=== PATIENT | male | born 1955 | race Caucasian/White ===

== ENCOUNTER 2020-01-02 13:48 | Outpatient (REF) | payer BC, SELFPAY ==
--- NOTE | 2020-01-02 13:50 | XR_ITS ---
EXAMINATION: X-RAY BILATERAL KNEES X-RAY RIGHT KNEE CLINICAL INFORMATION: Pain COMPARISON: None TECHNIQUE: AP bilateral knee single view. Right knee 2 views. FINDINGS: Right knee: There is joint space narrowing, marginal osteophytes in all 3 compartments. Small suprapatellar joint fluid. No fracture or dislocation. Left knee: Moderate, medial greater than lateral compartment arthritis. XR/XR knee RT 2V IMPRESSION: Moderate tricompartment arthritis right knee.
--- NOTE | 2020-01-02 13:50 | XR_ITS ---
EXAMINATION: X-RAY BILATERAL KNEES X-RAY RIGHT KNEE CLINICAL INFORMATION: Pain COMPARISON: None TECHNIQUE: AP bilateral knee single view. Right knee 2 views. FINDINGS: Right knee: There is joint space narrowing, marginal osteophytes in all 3 compartments. Small suprapatellar joint fluid. No fracture or dislocation. Left knee: Moderate, medial greater than lateral compartment arthritis. XR/XR knee standing BI IMPRESSION: Moderate tricompartment arthritis right knee.
== END 2020-01-02 13:49 | disposition home or self-care (01) ==
LOC: HO.HOSX 13:48
PROVIDERS: PCP Family Medicine; Referring Provider Family Medicine; Visit Provider Orthopaedic Surgery
DX: M25.561 Pain in right knee (principal); M17.11 Unilateral primary osteoarthritis, right knee; M71.21 Synovial cyst of popliteal space [Baker], right knee
CPT/HCPCS: 20610; 73560; 73565; J1100

== ENCOUNTER 2020-02-07 10:31 | Outpatient (REF) | payer BC, SELFPAY ==
[2020-02-07 11:16] LABS: Microalbum/Creatinine Ratio Ur 5.8 ug/mg cr
== END 2020-02-07 10:32 | disposition home or self-care (01) ==
LOC: HO.LNP 10:31
PROVIDERS: Visit Provider Family Medicine
DX: I10 Essential (primary) hypertension (principal)
CPT/HCPCS: 82043

== ENCOUNTER → 2020-02-13 13:49 | Outpatient (BNVA) | payer BC, SELFPAY | PROVIDERS: Visit Provider Orthopaedic Surgery | DX: M17.11 Unilateral primary osteoarthritis, right knee (principal) | CPT/HCPCS: 20610; J1100 ==

== ENCOUNTER 2020-03-16 15:55 | Emergency (ER) | payer BC, SELFPAY ==
--- NOTE | 2020-03-16 | ECG_ITS ---
Test Reason : DYZNESS Blood Pressure : / mmHG Vent. Rate : 074 BPM Atrial Rate : 074 BPM P-R Int : 138 ms QRS Dur : 096 ms QT Int : 392 ms P-R-T Axes : 004 -12 034 degrees QTc Int : 435 ms Normal sinus rhythm Normal ECG When compared with ECG of 24-JUN-2006 19:58, No significant change was found Referred By: Kennedy Pena Electronically Signed By:LISY YA MD
[2020-03-16 16:25] VITALS: BP 127/77; PULSE 75; RESP 18; TEMP 37.1; O2SAT 99; BMI 27.8
--- NOTE | 2020-03-16 16:32 | XR_ITS ---
EXAMINATION: PORTABLE CHEST 1 VIEW CLINICAL INFORMATION: chest pain . COMPARISON: . TECHNIQUE: Portable frontal view of the chest was obtained. FINDINGS: The lungs are hypoexpanded. Minimal basilar atelectatic change but no superimposed focal infiltrate, effusion, edema, or pneumothorax. Cardiac and mediastinal silhouettes are within normal limits for the hypoexpanded technique. No acute bony abnormality seen. XR/XR chest 1V IMPRESSION: Hypoexpanded but otherwise no evidence of acute disease.
[2020-03-16 18:02] LABS: MANUAL DIFF FLAG NO
[2020-03-16 18:05] LABS: Basophils Absolute Auto 0.1 X10*3/uL (0.0-0.2); Basophils Percent Auto 0.7 % (0-2); Eosinophils Absolute Auto 0.5 X10*3/uL (0.0-0.4); Eosinophils Percent Auto 6.4 % (0-4); Hematocrit 43.9 % (42-52); Hemoglobin 15.4 g/dl (14.0-18.0); Imm Gran Abs Auto 0.03 X10*3/uL (0.00-0.03); Imm Gran Pct Auto 0.4 % (0.0-0.4); Lymphocytes Absolute Auto 1.3 X10*3/uL (1.2-4.9); Lymphocytes Percent Auto 17.1 % (20-40); Mean Corpuscular HGB Conc 35.1 g/dl (31.0-36.0); Mean Corpuscular Hemoglobin 32.2 pg (27.0-33.0); Mean Corpuscular Volume 91.8 fL (80-98); Mean Platelet Volume 9.1 fL (9.4-12.4); Monocytes Absolute Auto 0.8 X10*3/uL (0.1-1.2); Neutrophils Percent Auto 64.4 % (45-73); Platelet Count 221 X10*3/uL (160-400); Red Blood Count 4.78 X10*6/uL (4.60-5.80); White Blood Count 7.7 X10*3/uL (4.8-10.8)
[2020-03-16 18:24] LABS: Anion Gap 12 (12-20); Blood Urea Nitrogen 13 mg/dL (9-16); Calcium 9.3 mg/dL (8.4-10.2); Carbon Dioxide 27 mmol/L (22-29); Chloride 106 mmol/L (96-108); Creatinine Clr Calc Pharmacy 112.3; Estimated Glomerular Filt Rate > 60; Glucose Random 76 mg/dL (60-115); Potassium 3.8 mmol/l (3.3-5.1); Sodium 141 mmol/L (135-145)
[2020-03-16 18:30] LABS: Troponin-I High Sensitivity < 3.5 ng/L (<3.5-35.0)
[2020-03-16 22:45] VITALS: BP 154/79; PULSE 56; RESP 18; TEMP 36.4; O2SAT 100
[2020-03-16 22:59] LABS: Troponin-I High Sensitivity < 3.5 ng/L (<3.5-35.0)
--- NOTE | 2020-03-16 23:08 | ED.DIZZY ---
HPI - Dizziness General Chief Complaint: Dizziness Stated Complaint: dizziness Time Seen by Provider: 03/16/20 22:56 Source: patient Mode of arrival: ambulatory Limitations: no limitations History of Present Illness HPI Narrative: Patient comes to emergency room complaining of an episode of dizziness, chest pressure radiating to the right arm, also happen at 13:00. Per patient, it lasted for about 1 hour, then it started self resolving. At this time, patient states that he no chest pain at all, complaining of chronic shortness of breath for several years due to pulmonary fibrosis, nothing new respiratory shore. Patient describes dizziness as ?splitting headaches? and feeling like he was blacking out. Related Data Home Medications Medication Instructions Recorded Confirmed amlodipine 2.5 mg tablet 2.5 mg PO DAILY 01/02/20 02/14/20 aspirin 81 mg tablet,delayed 81 mg PO DAILY 01/02/20 02/14/20 release Previous Rx's Medication Instructions Recorded ibuprofen 600 mg tablet 600 mg PO Q8H PRN #30 tab 01/02/20 simvastatin 40 mg tablet 40 mg PO BEDTIME #30 tab 03/09/20 Allergies Allergy/AdvReac Type Severity Reaction Status Date / Time No Known Allergies Allergy Verified 02/14/20 10:46 Review of Systems Review of Systems: Constitutional : No Weight loss, No Fever, No Chills, No Night Sweats, No Fatigue, No Malaise ENT/Mouth : No Hearing loss, No Ear Pain, No Nasal Congestion, No Sinus Pain, No Hoarseness, No sore throat, No Rhinorrhea, No Swallowing Difficulty Eyes: No Eye Pain, No Swelling, No Redness, No Foreign Body, No Discharge, No Vision Changes Cardiovascular : 1 episode of chest pressure earlier today, No SOB, No Dyspnea on Exertion, No Orthopnea, No Edema, No Palpitations Respiratory : No Cough, No Sputum, No Wheezing, No Smoke Exposure, chronic Dyspnea Gastrointestinal : No Nausea, No Vomiting, No Diarrhea, No Constipation, No abdominal Pain, No Hematochezia, No Melena Genitourinary : no irregular bleeding, No Dysuria, No Urinary Frequency, No Hematuria, No Urinary Incontinence, No Urgency, No Flank Pain, No Urinary Flow Changes, No Hesitancy Musculoskeletal : No joint pain, No Myalgias, No Joint Swelling Skin : No Skin Lesions, No rash Neuro : No Weakness, No Numbness, No Paresthesias, No Loss of Consciousness, patient had 1 episode of dizziness,/lightheaded, No Headache Psych : No Anxiety/Panic, No Depression, No SI/HI/AH/VH, No Social Issues, Heme/Lymph: No Bruising, No Bleeding,No Lymphadenopathy Endocrine : No Polyuria, No Polydipsia, No Temperature Intolerance [facility] Past Medical History Medical History (Updated 03/16/20 @ 23:51 by Kendra Jewell MD) Aortic aneurysm Osteoarthritis of right knee Pulmonary fibrosis Right knee pain Surgical History H/O arthroscopic knee surgery Family History Family History (Updated 03/16/20 @ 23:50 by Kendra Jewlel MD) Father No problems noted. Mother No problems noted. Brother Pulmonary fibrosis Social History Social History Alcohol intake: never Smoking Status: Former smoker Use of substances other than those prescribed or required for medical reasons: No Advance Directives: No Advance Directives Information Provided: Yes Current occupational status: employed Current occupation: [employer]- left handed Physical Exam Vital Signs: Vital Signs: Last Vital Signs Temp 97.6 F 03/16/20 22:45 Pulse 55 03/16/20 23:41 Resp 14 03/16/20 23:41 BP 144/49 H 03/16/20 23:41 Pulse Ox 98 03/16/20 23:41 Body Mass Index 27.8 Appearance: Alert. Oriented X3. No acute distress. Mildly anxious Eyes: Pupils equal, round and reactive to light. ENT: Pharynx normal. Neck: Normal inspection. Neck supple. No lymph nodes noted. No crepitus CVS: Normal heart rate and rhythm. Pulses normal. Normal S1 and S2, no reproducible chest pain Respiratory: No respiratory distress. Breath sounds normal. No Wheezing. No rales Abdomen: Soft and nontender. No rigidity. No distention. good BS x4 Skin: Skin warm and dry. Normal skin color. Normal skin turgor. Extremities: No lower extremity edema. No lower extremity edema. No Lacerations. No Rash Neuro: Oriented X 3. No motor deficit. No sensory deficit. Moving all extermities. No slurred speech. Course Course Course Narrative: Patient's troponin x2 were negative, EKG shows no acute abnormalities. At this time, patient is not having any chest pain, no dizziness. Orthostatics were negative. Patient's oxygen saturation 99% on room air, blood pressure 133/89, heart rate 60. MDM - Dizziness Lab Data Result diagrams: 03/16/20 17:56 03/16/20 17:56 Labs: Lab Results 03/16/20 03/16/20 03/16/20 Range/Units 17:56 17:56 17:56 WBC 7.7 (4.8-10.8) X10*3/uL RBC 4.78 (4.60-5.80) X10*6/uL Hgb 15.4 (14.0-18.0) g/dl Hct 43.9 (42-52) % MCV 91.8 (80-98) fL MCH 32.2 (27.0-33.0) pg MCHC 35.1 (31.0-36.0) g/dl RDW 12.0 (11.0-16.0) % Plt Count 221 (160-400) X10*3/uL MPV 9.1 L (9.4-12.4) fL Immature Gran % (Auto) 0.4 (0.0-0.4) % Neut % (Auto) 64.4 (45-73) % Lymph % (Auto) 17.1 L (20-40) % [place] % (Auto) 11.0 (2-11) % Eos % (Auto) 6.4 H (0-4) % Baso % (Auto) 0.7 (0-2) % Lymph # (Auto) 1.3 (1.2-4.9) X10*3/uL [place] # (Auto) 0.8 (0.1-1.2) X10*3/uL Eos # (Auto) 0.5 H (0.0-0.4) X10*3/uL Baso # (Auto) 0.1 (0.0-0.2) X10*3/uL Abs Immat Gran (auto) 0.03 (0.00-0.03) X10*3/uL Absolute Neuts (auto) 5.0 (2.0-8.3) X10*3/uL Absolute Nucleated RBC 0.000 (0.0-0.012) X10*3/uL Nucleated RBC % (auto) 0.0 (0.0-0.2) /100WBC Hold Blue Top SEE NOTE Sodium 141 (135-145) mmol/L Potassium 3.8 (3.3-5.1) mmol/l Chloride 106 (96-108) mmol/L Carbon Dioxide 27 (22-29) mmol/L Anion Gap 12 (12-20) BUN 13 (9-16) mg/dL Creatinine 0.74 (0.5-1.4) mg/dL Estim Creat Clear Calc 112.3 Estimated GFR > 60 Random Glucose 76 (60-115) mg/dL Calcium 9.3 (8.4-10.2) mg/dL Troponin I High Sens (<3.5-35.0) ng/L 03/16/20 03/16/20 Range/Units 17:56 21:53 WBC (4.8-10.8) X10*3/uL RBC (4.60-5.80) X10*6/uL Hgb (14.0-18.0) g/dl Hct (42-52) % MCV (80-98) fL MCH (27.0-33.0) pg MCHC (31.0-36.0) g/dl RDW (11.0-16.0) % Plt Count (160-400) X10*3/uL MPV (9.4-12.4) fL Immature Gran % (Auto) (0.0-0.4) % Neut % (Auto) (45-73) % Lymph % (Auto) (20-40) % [place] % (Auto) (2-11) % Eos % (Auto) (0-4) % Baso % (Auto) (0-2) % Lymph # (Auto) (1.2-4.9) X10*3/uL [place] # (Auto) (0.1-1.2) X10*3/uL Eos # (Auto) (0.0-0.4) X10*3/uL Baso # (Auto) (0.0-0.2) X10*3/uL Abs Immat Gran (auto) (0.00-0.03) X10*3/uL Absolute Neuts (auto) (2.0-8.3) X10*3/uL Absolute Nucleated RBC (0.0-0.012) X10*3/uL Nucleated RBC % (auto) (0.0-0.2) /100WBC Hold Blue Top Sodium (135-145) mmol/L Potassium (3.3-5.1) mmol/l Chloride (96-108) mmol/L Carbon Dioxide (22-29) mmol/L Anion Gap (12-20) BUN (9-16) mg/dL Creatinine (0.5-1.4) mg/dL Estim Creat Clear Calc Estimated GFR Random Glucose (60-115) mg/dL Calcium (8.4-10.2) mg/dL Troponin I High Sens < 3.5 < 3.5 (<3.5-35.0) ng/L ECG Data Attestation: I personally reviewed and interpreted this ECG as follows: (Sinus rhythm, heart rate 74, QTC 435, no ST segment depressions or elevations, no T-wave inversions) Discharge Plan Discharge Clinical Impression: Atypical chest pain Patient Disposition: Home, Self-Care Instructions: Chest Pain (ED) Additional Instructions: Please follow-up with your primary care physician tomorrow. If you have any worsening or new symptoms, please return to the emergency room or call 911 Prescriptions: No Action simvastatin 40 mg tablet 40 mg PO BEDTIME Qty: 30 RF: 0 amlodipine 2.5 mg tablet 2.5 mg PO DAILY RF: 0 aspirin [Adult Aspirin Regimen] 81 mg tablet,delayed release (DR/EC) 81 mg PO DAILY RF: 0 ibuprofen 600 mg tablet 600 mg PO Q8H PRN (Reason: pain) Qty: 30 RF: 2
[2020-03-16 23:40] VITALS: BP 144/79; PULSE 55
[2020-03-16 23:41] VITALS: BP 133/89; BP 137/81; BP 144/49; PULSE 55; PULSE 57; PULSE 60; RESP 14; O2SAT 98
[2020-03-17] MEDS: Aspirin Enteric Coated 325 MG TABLET.DR PO (00:25)
[2020-03-17] MEDS: Meclizine HCl 25 MG TABLET 50 MG PO (00:26)
== END 2020-03-17 00:28 | disposition home or self-care (01) ==
PROVIDERS: Emergency Medicine; Internal Medicine; Emergency Provider Emergency Medicine; PCP Family Medicine
DX: R07.89 Other chest pain (principal)
CPT/HCPCS: 36415; 71045; 80048; 84484; 85025; 93005; 99283; 99284

== ENCOUNTER 2020-03-23 08:59 | Emergency (ER) | payer BC, SELFPAY ==
--- NOTE | 2020-03-23 09:05 | ED_ITS ---
HPI - Dizziness General Chief Complaint: Dizziness Stated Complaint: HEADACHE,DIZZINESS Time Seen by Provider: 03/23/20 09:06 Source: patient Mode of arrival: ambulatory Limitations: no limitations History of Present Illness HPI Narrative: hit his head 2 weeks ago while working at home then on 03/16 he had a sharp headache and dizziness since then intermittent dizziness and headache that does not respond to tylenol or motrin elicited complaint: dizziness and other (headache) Onset (ago): week(s) (1) Timing: gradual onset and constant Severity: moderate Description: room spinning Context: trauma History of similar symptoms: No Exacerbating factors: nothing Relieving factors: nothing Associated symptoms: denies other symptoms Related Data Home Medications Medication Instructions Recorded Confirmed amlodipine 2.5 mg tablet 2.5 mg PO DAILY 01/02/20 02/14/20 aspirin 81 mg tablet,delayed 81 mg PO DAILY 01/02/20 02/14/20 release flu vac qs 2019(4 yr up)CD(PF) ml IM 03/17/20 Previous Rx's Medication Instructions Recorded ibuprofen 600 mg tablet 600 mg PO Q8H PRN #30 tab 01/02/20 simvastatin 40 mg tablet 40 mg PO BEDTIME #30 tab 03/09/20 omeprazole 40 mg capsule,delayed 40 mg PO DAILY 90 Days #90 cap 03/17/20 release amoxicillin-pot clavulanate 1 tab PO BID #14 tab 03/23/20 [Augmentin] [id number]-znjcdgalaipwl-vgka 1 tab PO Q6H PRN #20 tab 03/23/20 cyclobenzaprine 10 mg PO TID PRN #14 tab 03/23/20 Allergies Allergy/AdvReac Type Severity Reaction Status Date / Time No Known Allergies Allergy Verified 02/14/20 10:46 Review of Systems Review of Systems: Constitutional : No Fever, No Chills, No Fatigue ENT/Mouth : No sore throat, No Rhinorrhea Eyes: No Eye Pain, No Swelling, No Redness Cardiovascular : No Chest Pain, No SOB, No Dyspnea on Exertion Respiratory : No Cough, No Sputum Gastrointestinal : No Nausea, No Vomiting, No Diarrhea, No abdominal Pain Genitourinary : No Dysuria, No Urinary Frequency, No Hematuria, Musculoskeletal : No joint pain, No Myalgias, No Joint Swelling Skin : No Skin Lesions, No rash Neuro : No Weakness, No Numbness, pos Dizziness, positive Headache Psych : No Anxiety/Panic, No Depression Heme/Lymph: No Bruising, No Bleeding,No Lymphadenopathy Endocrine : No Polyuria, No Polydipsia All other systems reviewed and are negative [facility] Past Medical History Attestation statement: The following information was validated with the patient. Medical History Aortic aneurysm Osteoarthritis of right knee Pulmonary fibrosis Right knee pain Surgical History H/O arthroscopic knee surgery Family History Family History (Updated 03/16/20 @ 23:50 by Kendra Jewell MD) Father No problems noted. Mother No problems noted. Brother Pulmonary fibrosis Social History Social History Alcohol intake: never Smoking Status: Former smoker Advance Directives: No Advance Directives Information Provided: No Current occupational status: employed Current occupation: [employer]- left handed Physical Exam Vital Signs: Vital Signs: Last Vital Signs Temp 98.2 F 03/23/20 10:06 Pulse 59 03/23/20 10:06 Resp 16 03/23/20 10:06 BP 146/86 H 03/23/20 10:06 Pulse Ox 96 03/23/20 10:06 Body Mass Index 27.9 Appearance: Alert. Oriented X3. No acute distress. Eyes: Pupils equal, round and reactive to light. ENT: Pharynx normal. Neck: Normal inspection. Neck supple. CVS: Normal heart rate and rhythm. Pulses normal. Respiratory: No respiratory distress. Breath sounds normal. Abdomen: Soft and nontender. Skin: Skin warm and dry. Normal skin color. Normal skin turgor. Extremities: No lower extremity edema. No calf ttp Neuro: Oriented X 3. No motor deficit. No sensory deficit. steady gait, no ataxia Course Course Course Narrative: negative workup at this time stable for DC MDM - Dizziness MDM Narrative Medical decision making narrative: 64 yo male with HTN, HPL here with dizziness/headaches x 1 week did strike head the week before no LOC no AC therap y on ASA will need labs, EKG, ortho VS, CT head for mass - dispo per results and findings, nonfocal exam neurologically Lab Data Result diagrams: 03/23/20 09:59 03/23/20 09:59 Labs: Lab Results 03/23/20 03/23/20 03/23/20 Range/Units 09:59 09:59 09:59 WBC 4.5 L (4.8-10.8) X10*3/uL RBC 5.13 (4.60-5.80) X10*6/uL Hgb 16.6 (14.0-18.0) g/dl Hct 46.5 (42-52) % MCV 90.6 (80-98) fL MCH 32.4 (27.0-33.0) pg MCHC 35.7 (31.0-36.0) g/dl RDW 11.8 (11.0-16.0) % Plt Count 225 (160-400) X10*3/uL MPV 9.3 L (9.4-12.4) fL Immature Gran % (Auto) 0.2 (0.0-0.4) % Neut % (Auto) 54.9 (45-73) % Lymph % (Auto) 23.9 (20-40) % [place] % (Auto) 10.9 (2-11) % Eos % (Auto) 9.2 H (0-4) % Baso % (Auto) 0.9 (0-2) % Lymph # (Auto) 1.1 L (1.2-4.9) X10*3/uL [place] # (Auto) 0.5 (0.1-1.2) X10*3/uL Eos # (Auto) 0.4 (0.0-0.4) X10*3/uL Baso # (Auto) 0.0 (0.0-0.2) X10*3/uL Abs Immat Gran (auto) 0.01 (0.00-0.03) X10*3/uL Absolute Neuts (auto) 2.5 (2.0-8.3) X10*3/uL Absolute Nucleated RBC 0.000 (0.0-0.012) X10*3/uL Nucleated RBC % (auto) 0.0 (0.0-0.2) /100WBC PT (10.8-13.0) SEC INR (0.9-1.1) APTT (24.1-38.0) SEC D-Dimer NG/ML Sodium 139 (135-145) mmol/L Potassium 4.3 (3.3-5.1) mmol/l Chloride 106 (96-108) mmol/L Carbon Dioxide 24 (22-29) mmol/L Anion Gap 13 (12-20) BUN 14 (9-16) mg/dL Creatinine 0.77 (0.5-1.4) mg/dL Estim Creat Clear Calc 121.5 Estimated GFR > 60 Random Glucose 86 (60-115) mg/dL Calcium 9.1 (8.4-10.2) mg/dL Magnesium 2.1 (1.6-2.6) mg/dL Troponin I High Sens (<3.5-35.0) ng/L COVID-19 ([facility]) Negative (Negative) COVID-19 Clin Com See Note 03/23/20 03/23/20 Range/Units 09:59 09:59 WBC (4.8-10.8) X10*3/uL RBC (4.60-5.80) X10*6/uL Hgb (14.0-18.0) g/dl Hct (42-52) % MCV (80-98) fL MCH (27.0-33.0) pg MCHC (31.0-36.0) g/dl RDW (11.0-16.0) % Plt Count (160-400) X10*3/uL MPV (9.4-12.4) fL Immature Gran % (Auto) (0.0-0.4) % Neut % (Auto) (45-73) % Lymph % (Auto) (20-40) % [place] % (Auto) (2-11) % Eos % (Auto) (0-4) % Baso % (Auto) (0-2) % Lymph # (Auto) (1.2-4.9) X10*3/uL [place] # (Auto) (0.1-1.2) X10*3/uL Eos # (Auto) (0.0-0.4) X10*3/uL Baso # (Auto) (0.0-0.2) X10*3/uL Abs Immat Gran (auto) (0.00-0.03) X10*3/uL Absolute Neuts (auto) (2.0-8.3) X10*3/uL Absolute Nucleated RBC (0.0-0.012) X10*3/uL Nucleated RBC % (auto) (0.0-0.2) /100WBC PT 13.0 (10.8-13.0) SEC INR 1.1 (0.9-1.1) APTT 32.2 (24.1-38.0) SEC D-Dimer < 200 NG/ML Sodium (135-145) mmol/L Potassium (3.3-5.1) mmol/l Chloride (96-108) mmol/L Carbon Dioxide (22-29) mmol/L Anion Gap (12-20) BUN (9-16) mg/dL Creatinine (0.5-1.4) mg/dL Estim Creat Clear Calc Estimated GFR Random Glucose (60-115) mg/dL Calcium (8.4-10.2) mg/dL Magnesium (1.6-2.6) mg/dL Troponin I High Sens < 3.5 (<3.5-35.0) ng/L COVID-19 ([facility]) (Negative) COVID-19 Clin Com ECG Data Attestation: I personally reviewed and interpreted this ECG as follows: ECG interpretation date: 03/23/20 ECG interpretation time: 10:48 Interpretation: Rate: 57 Rhythm: sinus bradycardia [place]: left Normal P waves. Normal EUGENIO. Normal QRS complex. ST T wave : normal no HELEN qTC: normal prior studies: no acute ischemia The study has been interpreted contemporaneously by me. . Discharge Plan Discharge Clinical Impression: Dizziness Acute tension headache Qualifiers: Intractability: not intractable Qualified Code(s): G44.209 - Tension-type headache, unspecified, not intractable Sinusitis Qualifiers: Sinusitis location: maxillary Chronicity: acute Recurrence: non-recurrent Qualified Code(s): J01.00 - Acute maxillary sinusitis, unspecified Patient Disposition: Home, Self-Care Instructions: Sinusitis (ED), Tension Headache (ED) Additional Instructions: return to ED for any worsening symptoms or concerns Prescriptions: New cyclobenzaprine 10 mg tablet 10 mg PO TID PRN (Reason: muscle spasm) Qty: 14 RF: 0 gcepxcsqoe-htmnjvbesaqbc-gcqq 50-325-40 mg tablet 1 tab PO Q6H PRN (Reason: pain) Qty: 20 RF: 0 amoxicillin-pot clavulanate [Augmentin] 875-125 mg tablet 1 tab PO BID Qty: 14 RF: 0 No Action simvastatin 40 mg tablet 40 mg PO BEDTIME Qty: 30 RF: 0 Flucelvax Quad (PF) 60 mcg (15 mcg x 4)/0.5 mL syringe IM RF: 0 omeprazole 40 mg capsule,delayed release(DR/EC) 40 mg PO DAILY 90 Days Qty: 90 RF: 2 amlodipine 2.5 mg tablet 2.5 mg PO DAILY RF: 0 aspirin [Adult Aspirin Regimen] 81 mg tablet,delayed release (DR/EC) 81 mg PO DAILY RF: 0 ibuprofen 600 mg tablet 600 mg PO Q8H PRN (Reason: pain) Qty: 30 RF: 2 Referrals: Dewayne Cardona MD [Primary Care Provider] - 3 days (if not better) Stand Alone Forms: Work/School Release
--- NOTE | 2020-03-23 09:07 | ECG_ITS ---
Test Reason : WEAKNESS Blood Pressure : / mmHG Vent. Rate : 057 BPM Atrial Rate : 057 BPM P-R Int : 164 ms QRS Dur : 090 ms QT Int : 414 ms P-R-T Axes : 058 -18 023 degrees QTc Int : 402 ms Sinus bradycardia Otherwise normal ECG When compared with ECG of 16-MAR-2020 16:28, No significant change was found Referred By: Atiya Fitzpatrick Electronically Signed By:WILD BIRMINGHAM
--- NOTE | 2020-03-23 09:07 | CT_ITS ---
EXAMINATION: CT HEAD WITHOUT CONTRAST CLINICAL INFORMATION: Headache and dizziness. COMPARISON: Previous head CT, most recent April 2017. TECHNIQUE: Contiguous axial imaging was performed from the skull base to vertex without intravenous administration of contrast. This CT examination was performed using dose optimization techniques as appropriate, variously including the following: *Automated exposure control *Adjustment of mA and/or kV according to patient size (this includes techniques or standardized protocols for targeted exams where dose is matched to indication/reason for exam; i.e. extremities or head) *Use of iterative reconstruction technique DLP: 717 mGy-cm. FINDINGS: There is no evidence of acute intracranial hemorrhage or territorial infarction. No abnormal mass effect or midline shift is seen. Ruffin to white matter differentiation is well preserved. No extra-axial fluid collections are identified. The ventricles are normal in size. There is no abnormal attenuation within the brain parenchyma. The osseous structures and soft tissues are normal. There is mild inflammatory change seen in the right maxillary sinus. Visualized paranasal sinuses, mastoid air cells and middle ears are otherwise clear. The mastoid air cells and visualized portions of the paranasal sinuses are well aerated. CT/CT head/brain wo con IMPRESSION: No acute findings. Mild inflammatory changes in the right maxillary sinus.
[2020-03-23 09:23] VITALS: BP 139/98; PULSE 67; RESP 18; TEMP 36.6; O2SAT 97; BMI 27.9
[2020-03-23 09:35] VITALS: BP 146/83; PULSE 61
[2020-03-23 09:36] VITALS: BP 161/94; PULSE 67
[2020-03-23 09:37] VITALS: BP 142/92; PULSE 70
[2020-03-23 10:05] LABS: MANUAL DIFF FLAG NO
[2020-03-23 10:06] VITALS: BP 146/86; PULSE 59; RESP 16; TEMP 36.8; O2SAT 96
[2020-03-23 10:09] LABS: Basophils Percent Auto 0.9 % (0-2); Eosinophils Absolute Auto 0.4 X10*3/uL (0.0-0.4); Eosinophils Percent Auto 9.2 % (0-4); Hematocrit 46.5 % (42-52); Hemoglobin 16.6 g/dl (14.0-18.0); Imm Gran Abs Auto 0.01 X10*3/uL (0.00-0.03); Imm Gran Pct Auto 0.2 % (0.0-0.4); Lymphocytes Absolute Auto 1.1 X10*3/uL (1.2-4.9); Lymphocytes Percent Auto 23.9 % (20-40); Mean Corpuscular HGB Conc 35.7 g/dl (31.0-36.0); Mean Corpuscular Hemoglobin 32.4 pg (27.0-33.0); Mean Corpuscular Volume 90.6 fL (80-98); Mean Platelet Volume 9.3 fL (9.4-12.4); Monocytes Absolute Auto 0.5 X10*3/uL (0.1-1.2); Monocytes Percent Auto 10.9 % (2-11); Neutrophils Absolute Auto 2.5 X10*3/uL (2.0-8.3); Neutrophils Percent Auto 54.9 % (45-73); Platelet Count 225 X10*3/uL (160-400); Red Blood Count 5.13 X10*6/uL (4.60-5.80); Red Cell Distribution Width 11.8 % (11.0-16.0); White Blood Count 4.5 X10*3/uL (4.8-10.8)
[2020-03-23 10:21] LABS: INTERNATIONAL NORM RATIO 1.1 (0.9-1.1)
[2020-03-23 10:24] LABS: Partial Thromboplastin Time 32.2 SEC (24.1-38.0)
[2020-03-23 10:27] LABS: D Dimer < 200 NG/ML
[2020-03-23 10:36] LABS: Troponin-I High Sensitivity < 3.5 ng/L (<3.5-35.0)
[2020-03-23 10:37] LABS: Anion Gap 13 (12-20); Blood Urea Nitrogen 14 mg/dL (9-16); Calcium 9.1 mg/dL (8.4-10.2); Carbon Dioxide 24 mmol/L (22-29); Chloride 106 mmol/L (96-108); Creatinine Clr Calc Pharmacy 121.5; Estimated Glomerular Filt Rate > 60; Glucose Random 86 mg/dL (60-115); Magnesium 2.1 mg/dL (1.6-2.6); Potassium 4.3 mmol/l (3.3-5.1); Sodium 139 mmol/L (135-145)
[2020-03-23 11:10] LABS: COVID-19 Test Negative (Negative)
== END 2020-03-23 12:17 | disposition home or self-care (01) ==
PROVIDERS: Emergency Provider Emergency Medicine; PCP Family Medicine
DX: R42 Dizziness and giddiness (principal); G44.209 Tension-type headache, unspecified, not intractable; J01.00 Acute maxillary sinusitis, unspecified; Z20.822 Contact with and (suspected) exposure to COVID-19
CPT/HCPCS: 36415; 70450; 80048; 83735; 84484; 85025; 85379; 85610; 85730; 87635; 93005; 99284

== ENCOUNTER 2020-05-08 11:00 | Outpatient (REF) | payer BC, SELFPAY ==
[2020-05-08 12:04] LABS: Creatinine Urine 161.25 mg/dL; Microalbum/Creatinine Ratio Ur 5.5 ug/mg cr
== END 2020-05-08 11:01 | disposition home or self-care (01) ==
LOC: HO.LNP 11:00
PROVIDERS: Visit Provider Family Medicine
DX: I10 Essential (primary) hypertension (principal)
CPT/HCPCS: 82043

== ENCOUNTER 2020-08-06 10:25 | Outpatient (REF) | payer BC, SELFPAY ==
[2020-08-06 14:37] LABS: Alanine Aminotransferase 25 U/L (0-40); Albumin Level 4.7 g/dL (3.5-5.0); Alkaline Phosphatase 60 U/L (39-117); Anion Gap 10 (12-20); Aspartate Amino Transferase 25 U/L (5-37); Bilirubin Total 1.2 mg/dL (0.0-1.0); Blood Urea Nitrogen 14 mg/dL (9-16); Calcium 9.5 mg/dL (8.4-10.2); Carbon Dioxide 30 mmol/L (22-29); Chloride 104 mmol/L (96-108); Cholesterol 159 mg/dL; Estimated Glomerular Filt Rate > 60; Glucose Fasting 87 mg/dL (60-99); HDL Cholesterol 50 mg/dL; LDL Cholesterol Calculated 95 mg/dl; Potassium 4.2 mmol/L (3.3-5.1); Sodium 140 mmol/L (135-145); Total Protein 7.5 g/dL (6.5-8.0); Triglycerides 73 mg/dL
[2020-08-06 14:57] LABS: TSH reflex Free T4 2.43 uIU/mL (0.32-4.0)
== END 2020-08-06 10:26 | disposition home or self-care (01) ==
LOC: HO.WFDLDS 10:25
PROVIDERS: Visit Provider Family Medicine
DX: Z00.00 Encounter for general adult medical examination without abnormal findings (principal)
CPT/HCPCS: 36415; 80053; 80061; 84443

== ENCOUNTER 2021-02-22 22:40 | Emergency (ER) | payer BC, SELFPAY ==
--- NOTE | 2021-02-22 | ECG_ITS ---
Test Reason : CHEST PAIN Blood Pressure : / mmHG Vent. Rate : 064 BPM Atrial Rate : 064 BPM P-R Int : 126 ms QRS Dur : 100 ms QT Int : 430 ms P-R-T Axes : 006 -24 005 degrees QTc Int : 443 ms Normal sinus rhythm Normal ECG When compared with ECG of 23-MAR-2020 09:41, No significant change was found Referred By: Generic ED Physician Electronically Signed By:WILD BIRMINGHAM
--- NOTE | ~2021-02-22 | XR_ITS ---
EXAMINATION: XR CHEST CLINICAL INFORMATION: Chest pain COMPARISON: 03/16/2020 TECHNIQUE: Frontal view of the chest was obtained. FINDINGS: Cardiac leads overlie the chest. The lungs are well expanded. Mild bronchial wall thickening noted. There is no focal consolidation, edema, or effusion. No pneumothorax. The cardiomediastinal silhouette is within normal limits. No acute osseous abnormality. XR/XR chest 1V IMPRESSION: No consolidation. Bronchial wall thickening can be seen with a small airways process such as asthma or atypical/viral infection.
[2021-02-22 23:33] VITALS: BP 153/90; PULSE 68; RESP 18; TEMP 36.4; O2SAT 95; BMI 26.4
--- NOTE | 2021-02-23 00:39 | ED_ITS ---
HPI - Chest Pain General Chief Complaint: Chest Pain Stated Complaint: rapid heart rate Time Seen by Provider: 02/23/21 00:39 Source: patient Mode of arrival: ambulatory Limitations: no limitations History of Present Illness HPI narrative: Patient's history of ascending thoracic aorta are aneurysm 4.5 cm unchanged in last 2 years history of hypertension comes here for palpitation episodes off and on for last 2 days with chest discomfort patient been having this palpitation off and on for the last few months has not seen any shot tube machine tender. No dizziness no syncope episode with this patient denies any anxiety or depression tonight patient woke up at 22:00 with similar episode which lasted until he came to the ER on arrival patient heart rate is 57 beats per minute sinus bradycardia. Related Data Home Medications Medication Instructions Recorded Confirmed aspirin 81 mg tablet,delayed 81 mg PO DAILY 01/02/20 02/14/20 release (Adult Aspirin Regimen) flu vac qs 2019(4 yr up)CD(PF) ml IM 03/17/20 Previous Rx's Medication Instructions Recorded ibuprofen 600 mg tablet 600 mg PO Q8H PRN #30 tab 01/02/20 omeprazole 40 mg capsule,delayed 40 mg PO DAILY 90 Days #90 cap 03/17/20 release amoxicillin 875 mg-potassium 1 tab PO BID #14 tab 03/23/20 clavulanate 125 mg tablet (Augmentin) bylougqhfx-fiqegyqhxnlwp-tpwayudj 1 tab PO Q6H PRN #20 tab 03/23/20 50 mg-325 mg-40 mg tablet cyclobenzaprine 10 mg tablet 10 mg PO TID PRN #14 tab 03/23/20 hydrochlorothiazide 25 mg tablet 50 mg PO DAILY 90 Days #180 tab 08/06/20 lisinopril 10 mg tablet 10 mg PO DAILY 30 Days #30 tab 09/02/20 simvastatin 40 mg tablet 40 mg PO BEDTIME #90 tab 11/17/20 Allergies Allergy/AdvReac Type Severity Reaction Status Date / Time No Known Allergies Allergy Verified 11/30/20 08:39 Review of Systems Review of Systems: Yes all other systems are reviewed and are negative PMFSH Past Medical History Medical History Aortic aneurysm Osteoarthritis of right knee Pulmonary fibrosis Right knee pain Surgical History H/O arthroscopic knee surgery History of appendectomy Family History Family History Father No problems noted. Mother No problems noted. Brother Pulmonary fibrosis Social History Social History Housing: House Alcohol intake: never Patient Tobacco Use Status: Never used Tobacco Use of substances other than those prescribed or required for medical reasons: No Advance Directives: No Advance Directives Information Provided: No Current occupational status: employed Current occupation: [employer]- left handed Physical Exam Vital Signs: Vital Signs: Last Vital Signs Temp 97.4 F 02/23/21 02:00 Pulse 53 02/23/21 02:00 Resp 16 02/23/21 02:00 BP 123/74 02/23/21 02:00 Pulse Ox 95 02/23/21 02:00 BMI result Body Mass Index 26.4 Appearance: Alert. Oriented X3. No acute distress. Eyes: No pallor or icterus ENT: Pharynx normal. Oral Mucosa moist Neck: Normal inspection. Neck supple. CVS: Normal heart rate and rhythm. Pulses normal. Respiratory: No respiratory distress. Equal air entry bilateral, no wheezing/rales/rhonchi Abdomen: Soft and nontender. Bowel sounds are present, no mass palpable, Skin: Skin warm and dry. Normal skin color. Normal skin turgor. Extremities: No lower extremity edema. No calf tenderness Neuro: Oriented X 3. No motor deficit. MDM - Chest Pain MDM Narrative Medical decision making narrative: Patient atypical chest pain palpitation no cardiac arrhythmia noted during stay in the ER troponin negative , normal EKG will discharge patient home advised to follow up with PCP/shot tube machine tender Lab Data Attestation: I reviewed the patient's lab results. Result diagrams: 02/23/21 01:18 02/23/21 01:18 Labs: Lab Results 02/23/21 02/23/21 02/23/21 Range/Units 01:18 01:18 01:18 WBC 5.0 (4.8-10.8) X10*3/uL RBC 4.77 (4.60-5.80) X10*6/uL Hgb 15.4 (14.0-18.0) g/dl Hct 42.5 (42.0-52.0) % MCV 89.1 (80.0-98.0) fL MCH 32.3 (27.0-33.0) pg MCHC 36.2 H (31.0-36.0) g/dl RDW 11.6 (11.0-16.0) % Plt Count 227 (160-400) X10*3/uL MPV 9.3 L (9.4-12.4) fL Immature Gran % (Auto) 0.4 (0.0-0.4) % Neut % (Auto) 48.0 (45-73) % Lymph % (Auto) 28.0 (20-40) % [place] % (Auto) 16.0 H (2-11) % Eos % (Auto) 7.0 H (0-4) % Baso % (Auto) 0.6 (0-2) % Lymph # (Auto) 1.4 (1.2-4.9) X10*3/uL [place] # (Auto) 0.8 (0.1-1.2) X10*3/uL Eos # (Auto) 0.4 (0.0-0.4) X10*3/uL Baso # (Auto) 0.0 (0.0-0.2) X10*3/uL Abs Immat Gran (auto) 0.02 (0.00-0.03) X10*3/uL Absolute Neuts (auto) 2.4 (2.0-8.3) x10*3/uL Absolute Nucleated RBC 0.000 (0.0-0.012) X10*3/uL Nucleated RBC % (auto) 0.0 (0.0-0.2) /100WBC Sodium 139 (135-145) mmol/L Potassium 3.4 (3.3-5.1) mmol/L Chloride 104 (96-108) mmol/L Carbon Dioxide 27 (22-29) mmol/L Anion Gap 11 L (12-20) BUN 14 (9-16) mg/dL Creatinine 0.80 (0.5-1.4) mg/dL Estim Creat Clear Calc 106.8 Estimated GFR > 60 Random Glucose 100 (60-115) mg/dL Calcium 9.4 (8.4-10.2) mg/dL Troponin I High Sens < 3.5 (<3.5-35.0) ng/L COVID-19 ([facility]) (Negative) COVID-19 Clin Com 02/23/21 Range/Units 01:18 WBC (4.8-10.8) X10*3/uL RBC (4.60-5.80) X10*6/uL Hgb (14.0-18.0) g/dl Hct (42.0-52.0) % MCV (80.0-98.0) fL MCH (27.0-33.0) pg MCHC (31.0-36.0) g/dl RDW (11.0-16.0) % Plt Count (160-400) X10*3/uL MPV (9.4-12.4) fL Immature Gran % (Auto) (0.0-0.4) % Neut % (Auto) (45-73) % Lymph % (Auto) (20-40) % [place] % (Auto) (2-11) % Eos % (Auto) (0-4) % Baso % (Auto) (0-2) % Lymph # (Auto) (1.2-4.9) X10*3/uL [place] # (Auto) (0.1-1.2) X10*3/uL Eos # (Auto) (0.0-0.4) X10*3/uL Baso # (Auto) (0.0-0.2) X10*3/uL Abs Immat Gran (auto) (0.00-0.03) X10*3/uL Absolute Neuts (auto) (2.0-8.3) x10*3/uL Absolute Nucleated RBC (0.0-0.012) X10*3/uL Nucleated RBC % (auto) (0.0-0.2) /100WBC Sodium (135-145) mmol/L Potassium (3.3-5.1) mmol/L Chloride (96-108) mmol/L Carbon Dioxide (22-29) mmol/L Anion Gap (12-20) BUN (9-16) mg/dL Creatinine (0.5-1.4) mg/dL Estim Creat Clear Calc Estimated GFR Random Glucose (60-115) mg/dL Calcium (8.4-10.2) mg/dL Troponin I High Sens (<3.5-35.0) ng/L COVID-19 ([facility]) Negative (Negative) COVID-19 Clin Com See Note ECG Data ECG #1: Attestation: I personally reviewed and interpreted this ECG as follows: Interpretation: Heart rate 64 beats per minute normal sinus rhythm normal intervals normal axis no acute EKG changes no acute ischemia Discharge Plan Discharge Clinical Impression: Heart palpitations Chest pain Qualifiers: Chest pain type: precordial pain Qualified Code(s): R07.2 - Precordial pain Patient Disposition: Home, Self-Care Instructions: Chest Pain (ED), Heart Palpitations (ED) Additional Instructions: Continue your medications and follow up with your shot tube machine tender Report to the ER if worsening of palpitations/passing out Prescriptions: No Action simvastatin 40 mg tablet 40 mg PO BEDTIME Qty: 90 RF: 2 cyclobenzaprine 10 mg tablet 10 mg PO TID PRN (Reason: muscle spasm) Qty: 14 RF: 0 ihyhlzovrt-tiwwvsxwxglmn-tfvf 50-325-40 mg tablet 1 tab PO Q6H PRN (Reason: pain) Qty: 20 RF: 0 amoxicillin-pot clavulanate [Augmentin] 875-125 mg tablet 1 tab PO BID Qty: 14 RF: 0 Flucelvax Quad [id number] (PF) 60 mcg (15 mcg x 4)/0.5 mL syringe IM RF: 0 omeprazole 40 mg capsule,delayed release(DR/EC) 40 mg PO DAILY 90 Days Qty: 90 RF: 2 hydrochlorothiazide 25 mg tablet 50 mg PO DAILY 90 Days Qty: 180 RF: 4 lisinopril 10 mg tablet 10 mg PO DAILY 30 Days Qty: 30 RF: 2 aspirin [Adult Aspirin Regimen] 81 mg tablet,delayed release (DR/EC) 81 mg PO DAILY RF: 0 ibuprofen 600 mg tablet 600 mg PO Q8H PRN (Reason: pain) Qty: 30 RF: 2 Interventions: ED Discharge Assessment Last Done: 02/23/21 02:15 Discharge Date/Time: 02/23/21 02:21
[2021-02-23 00:52] VITALS: BP 128/81; PULSE 58; RESP 16; TEMP 36.4; O2SAT 94
[2021-02-23 01:24] LABS: MANUAL DIFF FLAG NO
[2021-02-23 01:26] LABS: Basophils Percent Auto 0.6 % (0-2); Eosinophils Absolute Auto 0.4 X10*3/uL (0.0-0.4); Hematocrit 42.5 % (42.0-52.0); Hemoglobin 15.4 g/dl (14.0-18.0); Imm Gran Abs Auto 0.02 X10*3/uL (0.00-0.03); Imm Gran Pct Auto 0.4 % (0.0-0.4); Lymphocytes Absolute Auto 1.4 X10*3/uL (1.2-4.9); Mean Corpuscular HGB Conc 36.2 g/dl (31.0-36.0); Mean Corpuscular Hemoglobin 32.3 pg (27.0-33.0); Mean Corpuscular Volume 89.1 fL (80.0-98.0); Mean Platelet Volume 9.3 fL (9.4-12.4); Monocytes Absolute Auto 0.8 X10*3/uL (0.1-1.2); Neutrophils Absolute Auto 2.4 x10*3/uL (2.0-8.3); Platelet Count 227 X10*3/uL (160-400); Red Blood Count 4.77 X10*6/uL (4.60-5.80); Red Cell Distribution Width 11.6 % (11.0-16.0)
[2021-02-23 01:39] LABS: Anion Gap 11 (12-20); Blood Urea Nitrogen 14 mg/dL (9-16); Calcium 9.4 mg/dL (8.4-10.2); Carbon Dioxide 27 mmol/L (22-29); Chloride 104 mmol/L (96-108); Creatinine Clr Calc Pharmacy 106.8; Estimated Glomerular Filt Rate > 60; Glucose Random 100 mg/dL (60-115); Potassium 3.4 mmol/L (3.3-5.1); Sodium 139 mmol/L (135-145)
[2021-02-23 01:46] LABS: Troponin-I High Sensitivity < 3.5 ng/L (<3.5-35.0)
[2021-02-23 01:48] LABS: COVID-19 Test Negative (Negative)
[2021-02-23 02:00] VITALS: BP 123/74; PULSE 53; RESP 16; TEMP 36.3; O2SAT 95
== END 2021-02-23 02:21 | disposition home or self-care (01) ==
PROVIDERS: Emergency Provider Internal Medicine; PCP Family Medicine
DX: R00.2 Palpitations (principal); R07.2 Precordial pain; R00.1 Bradycardia, unspecified; Z20.822 Contact with and (suspected) exposure to COVID-19; I10 Essential (primary) hypertension
CPT/HCPCS: 36415; 71045; 80048; 84484; 85025; 87635; 93005; 99284; 99285

== ENCOUNTER 2021-05-29 14:55 | Emergency (ER) | payer BC, SELFPAY ==
--- NOTE | ~2021-05-29 | CT_ITS ---
EXAMINATION: CT ANGIOGRAM OF THE CHEST WITH AND WITHOUT CONTRAST (CT PULMONARY ANGIOGRAM FOR PE) CLINICAL INFORMATION: Shortness of breath. Chest pain, cough and congestion COMPARISON: Chest radiograph 05/29/2021. CT chest 08/22/2018. TECHNIQUE: Prior to contrast administration, noncontrast localization images were obtained. Subsequently, multidetector volumetric imaging was performed from the thoracic inlet to below the diaphragms following the administration of 71 mL Omnipaque 350 intravenous contrast. No contrast reaction reported Sagittal, coronal, and MIP oblique sagittal reformatted images were obtained on the CT workstation, uploaded to PACS, and reviewed. This CT examination was performed using dose optimization techniques as appropriate, variously including the following: *Automated exposure control *Adjustment of mA and/or kV according to patient size (this includes techniques or standardized protocols for targeted exams where dose is matched to indication/reason for exam; i.e. extremities or head) *Use of iterative reconstruction technique Total exam dose-length product 395 mGy-cm FINDINGS: QUALITY OF STUDY/CONTRAST BOLUS: Satisfactory. PULMONARY ARTERIES: No intraluminal filling defects are noted within the visualized pulmonary arterial system to suggest the presence of pulmonary bullae. The main and central pulmonary arteries are normal in caliber. THORACIC AORTA: No aneurysm or dissection. Making allowances for motion artifact, the ascending or aorta measures 3.8 cm in AP dimension. LUNG: Mild biapical pleural parenchymal scarring of the lungs is noted. Minimal posterior dependent atelectasis of the lungs is visualized. The visualized tracheobronchial system is normal in appearance. PLEURA: No pleural effusion or pneumothorax. MEDIASTINUM: No mediastinal lymphadenopathy. Normal heart size. No pericardial thickening or pericardial fluid collections. Partial visualization of mild coronary artery calcific atherosclerosis in the region of the left mainstem and left anterior descending coronary arteries. Partial visualization of calcific atherosclerosis within the distal right coronary artery. No evidence of septal bowing or right heart strain. CHEST WALL/AXILLA: No axillary or internal mammary lymphadenopathy. OSSEOUS STRUCTURES: Minimal multilevel anterior endplate osteophytosis of the thoracic spine. UPPER ABDOMEN: Normal appearance of the adrenal glands. No reflux of contrast into the hepatic veins to suggest elevated right heart pressures. CT/CT angio chest PE protocol IMPRESSION: *CT pulmonary angiogram negative for pulmonary emboli. No acute cardiopulmonary abnormalities identified. *Partial visualization of mild scattered coronary artery calcific atherosclerosis. VTE: negative
--- NOTE | ~2021-05-29 | XR_ITS ---
EXAMINATION: XR CHEST CLINICAL INFORMATION: Chest pain, cough and congestion COMPARISON: Previous chest x-ray February 2021 TECHNIQUE: 2 views of the chest were obtained. FINDINGS: The cardiac and mediastinal contours are stable. The lungs are clear. There is no pleural effusion or pneumothorax. There are degenerative changes of the spine. XR/XR chest 2V IMPRESSION: Unremarkable examination.
--- NOTE | 2021-05-29 14:58 | ECG_ITS ---
Test Reason : CP Blood Pressure : / mmHG Vent. Rate : 071 BPM Atrial Rate : 071 BPM P-R Int : 174 ms QRS Dur : 094 ms QT Int : 384 ms P-R-T Axes : 044 -10 041 degrees QTc Int : 417 ms Normal sinus rhythm Normal ECG When compared with ECG of 23-FEB-2021 00:00, Nonspecific T wave abnormality no longer evident in Inferior leads Referred By: Generic ED Physician Electronically Signed By:Luis Fernando Peñaloza
[2021-05-29 14:59] VITALS: BP 153/85; PULSE 81; RESP 19; TEMP 36.6; O2SAT 98; BMI 28.5
--- NOTE | 2021-05-29 15:27 | ED_ITS ---
HPI - Chest Pain General Chief Complaint: Chest Pain Stated Complaint: Chest pain/SOB Time Seen by Provider: 05/29/21 15:27 Source: patient Mode of arrival: ambulatory Limitations: no limitations History of Present Illness HPI narrative: Patient is a 66 year old male presenting to the emergency department today with chest pain and shortness of breath. Patient states that since 0300 this morning, he has felt a crushing chest pain with shortness of breath. Patient states that he feels the pain is in the center of his chest that goes somewhat to the left, and feels like a heaviness is crushing his chest. Patient denies any dizziness, lightheadedness, abdominal pain, nausea, vomiting, fever, chills, blurry vision, double vision, loss of vision, back pain, night sweats, pain with urination, increased urinary frequency, increased urinary urgency, blood in his urine or stool, syncope or a near syncopal episode, recent trauma or falls, bowel incontinence, bladder incontinence, bowel retention, bladder retention, or any other complaints at this time. Patient states that he has a history of hypert ension and an aortic aneurysm that is stable >4cm and monitored yearly by his doctor. MD complaint: chest pain and chest heaviness Pertinent past history: known aortic aneurysm Onset (ago): hour(s) (12) Timing of current episode: constant Onset: during rest Pain location: substernal and left chest Severity: mild Pain scale (0-10): 4 Quality: heaviness and crushing Relieving factors: nothing Exacerbating factors: nothing Treatment prior to arrival: none Risk Factors Coronary artery disease risk factors: hyperlipidemia and hypertension Thoracic aortic dissection risk factors: history of thoracic aortic aneurysm Related Data Home Medications Medication Instructions Recorded Confirmed aspirin 81 mg tablet,delayed 81 mg PO DAILY 01/02/20 02/14/20 release (Adult Aspirin Regimen) flu vac qs 2019(4 yr up)CD(PF) ml IM 03/17/20 Previous Rx's Medication Instructions Recorded simvastatin 40 mg tablet 40 mg PO BEDTIME #90 tab 11/17/20 polyethylene glycol 3350 17 gram 17 g PO DAILY 7 Days #7 ea 02/23/21 oral powder packet (Miralax) lisinopril 20 1 tab PO DAILY 30 Days #90 tab 04/01/21 mg-hydrochlorothiazide 25 mg tablet omeprazole 40 mg capsule,delayed 40 mg PO DAILY 90 Days #90 cap 04/14/21 release Allergies Allergy/AdvReac Type Severity Reaction Status Date / Time No Known Allergies Allergy Verified 03/02/21 10:47 Review of Systems Constitutional: Constitutional: Reports no additional constitutional complaints, Denies chills, Denies fever(s) and Denies night sweats Eyes: Eyes: Reports no additional eye complaints, Denies blurry vision, Denies change in vision, Denies diplopia, Denies eye discharge, Denies loss of vision and Denies eye pain ENT: Denies dizziness Cardiovascular: Cardiovascular: Reports no additional cardiovascular complaints, Reports chest pain, Denies lightheadedness, Denies Loss of Consciousness and Reports dyspnea Respiratory: Respiratory: Reports no additional respiratory complaints and Reports dyspnea Gastrointestinal: Gastrointestinal: Reports no additional gastrointestinal complaints, Denies abdominal pain, Denies melena, Denies hematochezia, Denies change in bowel habits and Denies change in stool character Genitourinary: Genitourinary: Reports no additional male genitourinary complaints, Denies hematuria, Denies oliguria, Denies difficulty urinating, Denies dysuria, Denies urinary frequency, Denies urinary hesitancy, Denies urinary incontinence and Denies urinary urgency Musculoskeletal: Musculoskeletal: Reports no additional musculoskeletal complaints, Denies numbness and Denies tingling Neurologic: Denies dizziness, Denies loss of vision, Denies numbness and Denies tingling Psychiatric: Psychiatric: Reports no additional psychiatric complaints Endocrine: Endocrine: Reports no additional endocrine complaints Hematologic/Lymphatic: Hematologic/Lymphatic: Reports no additional hematologic/lymphatic complaints Allergic/Immunologic: Allergic/Immunologic: Reports no additional allergic/immunologic complaints [facility] Past Medical History Attestation statement: The following information was validated with the patient. Source: old records reviewed Medical History Aortic aneurysm HTN (hypertension) Osteoarthritis of right knee Pulmonary fibrosis Right knee pain Surgical History H/O arthroscopic knee surgery History of appendectomy Family History Family History Father No problems noted. Mother No problems noted. Brother Pulmonary fibrosis Social History Social History Housing: House Alcohol intake: never Patient Tobacco Use Status: Never used Tobacco e-Cigarette/Vaping Use: Never Used Second Hand Smoke Exposure: No Advance Directives: No Advance Directives Information Provided: No Current occupational status: employed Current occupation: [employer]- left handed Cognitive needs: No Hearing needs: No Vision needs: No Physical Exam Vital Signs: Vital Signs: Last Vital Signs Temp 98 F 05/29/21 14:59 Pulse 81 05/29/21 14:59 Resp 19 05/29/21 14:59 BP 153/85 H 05/29/21 14:59 Pulse Ox 98 05/29/21 14:59 BMI result Body Mass Index 28.5 Const: General: cooperative, no acute distress, alert and awake Nutritional Appearance: well nourished Orientation/consciousness: patient oriented x3 Limitations: no limitations HEENT: Head: Yes normal to inspection and Yes atraumatic Ears: hearing grossly normal bilaterally and external ears normal General nose exam: Normal external nose present, no nasal discharge noted and no epistaxis Face and sinus: Yes normal facial exam, No abrasion and No laceration Mouth: Normal oral and palatal mucosa present, no drooling and no muffled voice Eyes: General: appearance normal, both eyes and all related structures Periorbital: periorbital findings normal Eyelids: Yes eyelids normal Conjunctivae: conjunctivae normal Pupils: Equal, round and reactive pupils present EOM: EOMs intact bilaterally Neck: Neck: Yes normal visual inspection, Yes full ROM and Yes no lymphadenopathy Chest: Chest palpation & inspection: normal inspection of the chest Resp: Effort & Inspection: normal respiratory effort and able to speak in complete sentences Auscultation: clear to auscultation bilaterally Cardio: Rate: regular rate Rhythm: regular rhythm GI: Inspection: Yes normal to inspection Palpation (GI): Soft to palpation, not firm, nontender, no guarding and not rigid Neuro: General: patient oriented x3 and moves all extremities Cranial nerves: Yes Equal, round and reactive pupils present Cognition (Neuro): normal cognition Motor exam (neuro): 5/5 motor strength present throughout Sensory Exam: Normal double simultaneous stimulation for sensation Coordination: [id number] test normal Extrem: General: Yes normal to inspection, Yes full ROM and Yes capillary refill normal Psych: Appearance: grossly normal Mental Status: mental status grossly normal Affect: normal affect Attitude: cooperative Thought process: Normal thought process present Thought content: Normal thought content present Insight: Good insight present (Psych) Course Course Course Narrative: 1545: Patient immediately placed on continuous cardiac monitoring. Patient given 3 baby aspirin and 1 nitro. MDM - Chest Pain MDM Narrative Medical decision making narrative: Patient is a 66 year old male presenting to the emergency department today with chest pain and shortness of breath. Patient's physical exam was unremarkable. Patient's blood work was unremarkable, including a <3.5 initial troponin. Repeat troponin pending. Patient's EKG was unremarkable. Patient's chest x-ray showed no acute process. Patient's CT PE study showed no acute process. I explained my physical exam findings as well as all test results to the patient. I answered all questions asked by the patient. Patient received 3 PO baby aspirin and 1 sublingual nitro which he stated helped his pain significantly. Patient disposition will be decided after repeat troponin results. Patient signed out to Dr. Mancuso. Differential Diagnosis Differential diagnosis: Likely stable angina, unstable angina pectoris, atypical chest pain, costochondritis and chest pain Medical Records Data Attestation: I reviewed the patient's medical records. Lab Data Attestation: I reviewed the patient's lab results. Result diagrams: 05/29/21 15:53 05/29/21 15:54 Labs: Lab Results 05/29/21 05/29/21 05/29/21 Range/Units 15:53 15:53 15:53 WBC 4.8 (4.8-10.8) X10*3/uL RBC 4.17 L (4.60-5.80) X10*6/uL Hgb 13.6 L (14.0-18.0) g/dl Hct 37.9 L (42.0-52.0) % MCV 90.9 (80.0-98.0) fL MCH 32.6 (27.0-33.0) pg MCHC 35.9 (31.0-36.0) g/dl RDW 12.2 (11.0-16.0) % Plt Count 239 (160-400) X10*3/uL MPV 9.3 L (9.4-12.4) fL Immature Gran % (Auto) 0.2 (0.0-0.4) % Neut % (Auto) 56.4 (45-73) % Lymph % (Auto) 23.9 (20-40) % Boyle % (Auto) 13.2 H (2-11) % Eos % (Auto) 5.7 H (0-4) % Baso % (Auto) 0.6 (0-2) % Lymph # (Auto) 1.1 L (1.2-4.9) X10*3/uL Boyle # (Auto) 0.6 (0.1-1.2) X10*3/uL Eos # (Auto) 0.3 (0.0-0.4) X10*3/uL Baso # (Auto) 0.0 (0.0-0.2) X10*3/uL Abs Immat Gran (auto) 0.01 (0.00-0.03) X10*3/uL Absolute Neuts (auto) 2.7 (2.0-8.3) x10*3/uL Absolute Nucleated RBC 0.000 (0.0-0.012) X10*3/uL Nucleated RBC % (auto) 0.0 (0.0-0.2) /100WBC PT (9.9-13.0) SEC INR (0.9-1.1) APTT (24.1-38.0) SEC Sodium (135-145) mmol/L Potassium (3.3-5.1) mmol/L Chloride (96-108) mmol/L Carbon Dioxide (22-29) mmol/L Anion Gap (12-20) BUN (9-16) mg/dL Creatinine (0.5-1.4) mg/dL Estim Creat Clear Calc Estimated GFR Random Glucose (60-115) mg/dL Calcium (8.4-10.2) mg/dL Magnesium (1.6-2.6) mg/dL Total Bilirubin (0.0-1.0) mg/dL AST (5-37) U/L ALT (0-40) U/L Alkaline Phosphatase (39-117) U/L Troponin I High Sens < 3.5 (<3.5-35.0) ng/L B-Natriuretic Peptide 35 (<100) pg/mL Total Protein (6.5-8.0) g/dL Albumin (3.5-5.0) g/dL Lipase (8-78) U/L COVID-19 (KALANI) (Negative) COVID-19 Clin Com Influenza Type A (RYAN) (Negative) Influenza Type B (RYAN) (Negative) Influenza A & B Note 05/29/21 05/29/21 05/29/21 Range/Units 15:54 15:54 15:54 WBC (4.8-10.8) X10*3/uL RBC (4.60-5.80) X10*6/uL Hgb (14.0-18.0) g/dl Hct (42.0-52.0) % MCV (80.0-98.0) fL MCH (27.0-33.0) pg MCHC (31.0-36.0) g/dl RDW (11.0-16.0) % Plt Count (160-400) X10*3/uL MPV (9.4-12.4) fL Immature Gran % (Auto) (0.0-0.4) % Neut % (Auto) (45-73) % Lymph % (Auto) (20-40) % Boyle % (Auto) (2-11) % Eos % (Auto) (0-4) % Baso % (Auto) (0-2) % Lymph # (Auto) (1.2-4.9) X10*3/uL Boyle # (Auto) (0.1-1.2) X10*3/uL Eos # (Auto) (0.0-0.4) X10*3/uL Baso # (Auto) (0.0-0.2) X10*3/uL Abs Immat Gran (auto) (0.00-0.03) X10*3/uL Absolute Neuts (auto) (2.0-8.3) x10*3/uL Absolute Nucleated RBC (0.0-0.012) X10*3/uL Nucleated RBC % (auto) (0.0-0.2) /100WBC PT (9.9-13.0) SEC INR (0.9-1.1) APTT (24.1-38.0) SEC Sodium 138 (135-145) mmol/L Potassium 4.1 D (3.3-5.1) mmol/L Chloride 104 (96-108) mmol/L Carbon Dioxide 24 (22-29) mmol/L Anion Gap 14 (12-20) BUN 16 (9-16) mg/dL Creatinine 0.88 (0.5-1.4) mg/dL Estim Creat Clear Calc 104.5 Estimated GFR > 60 Random Glucose 90 (60-115) mg/dL Calcium 9.6 (8.4-10.2) mg/dL Magnesium 2.2 (1.6-2.6) mg/dL Total Bilirubin 0.7 (0.0-1.0) mg/dL AST 23 (5-37) U/L ALT 26 (0-40) U/L Alkaline Phosphatase 46 D (39-117) U/L Troponin I High Sens (<3.5-35.0) ng/L B-Natriuretic Peptide (<100) pg/mL Total Protein 7.2 (6.5-8.0) g/dL Albumin 4.5 (3.5-5.0) g/dL Lipase 58 (8-78) U/L COVID-19 (KALANI) Negative (Negative) COVID-19 Clin Com See Note Influenza Type A (RYAN) Negative (Negative) Influenza Type B (RYAN) Negative (Negative) Influenza A & B Note See Note 05/29/21 Range/Units 17:07 WBC (4.8-10.8) X10*3/uL RBC (4.60-5.80) X10*6/uL Hgb (14.0-18.0) g/dl Hct (42.0-52.0) % MCV (80.0-98.0) fL MCH (27.0-33.0) pg MCHC (31.0-36.0) g/dl RDW (11.0-16.0) % Plt Count (160-400) X10*3/uL MPV (9.4-12.4) fL Immature Gran % (Auto) (0.0-0.4) % Neut % (Auto) (45-73) % Lymph % (Auto) (20-40) % Boyle % (Auto) (2-11) % Eos % (Auto) (0-4) % Baso % (Auto) (0-2) % Lymph # (Auto) (1.2-4.9) X10*3/uL Boyle # (Auto) (0.1-1.2) X10*3/uL Eos # (Auto) (0.0-0.4) X10*3/uL Baso # (Auto) (0.0-0.2) X10*3/uL Abs Immat Gran (auto) (0.00-0.03) X10*3/uL Absolute Neuts (auto) (2.0-8.3) x10*3/uL Absolute Nucleated RBC (0.0-0.012) X10*3/uL Nucleated RBC % (auto) (0.0-0.2) /100WBC PT 12.8 (9.9-13.0) SEC INR 1.1 (0.9-1.1) APTT 31.4 (24.1-38.0) SEC Sodium (135-145) mmol/L Potassium (3.3-5.1) mmol/L Chloride (96-108) mmol/L Carbon Dioxide (22-29) mmol/L Anion Gap (12-20) BUN (9-16) mg/dL Creatinine (0.5-1.4) mg/dL Estim Creat Clear Calc Estimated GFR Random Glucose (60-115) mg/dL Calcium (8.4-10.2) mg/dL Magnesium (1.6-2.6) mg/dL Total Bilirubin (0.0-1.0) mg/dL AST (5-37) U/L ALT (0-40) U/L Alkaline Phosphatase (39-117) U/L Troponin I High Sens (<3.5-35.0) ng/L B-Natriuretic Peptide (<100) pg/mL Total Protein (6.5-8.0) g/dL Albumin (3.5-5.0) g/dL Lipase (8-78) U/L COVID-19 (KALANI) (Negative) COVID-19 Clin Com Influenza Type A (RYAN) (Negative) Influenza Type B (RYAN) (Negative) Influenza A & B Note Imaging Data Chest x-ray: Attestation: I personally reviewed and interpreted this imaging study as follows: My impression: No acute process. Radiologist's impression: EXAMINATION: XR CHEST CLINICAL INFORMATION: Chest pain, cough and congestion COMPARISON: Previous chest x-ray February 2021 TECHNIQUE: 2 views of the chest were obtained. FINDINGS: The cardiac and mediastinal contours are stable. The lungs are clear. There is no pleural effusion or pneumothorax. There are degenerative changes of the spine. XR/XR chest 2V IMPRESSION: Unremarkable examination. Dictated By: Brianda Myers MD Signed By: Electronically signed by Brianda Myers MD 05/29/[address] scan - chest: Attestation: I personally reviewed and interpreted this imaging study as follows: My impression: No acute process. Radiologist's impression: EXAMINATION: CT ANGIOGRAM OF THE CHEST WITH AND WITHOUT CONTRAST (CT PULMONARY ANGIOGRAM FOR PE) CLINICAL INFORMATION: Shortness of breath. Chest pain, cough and congestion COMPARISON: Chest radiograph 05/29/2021. CT chest 08/22/2018. TECHNIQUE: Prior to contrast administration, noncontrast localization images were obtained. ? Subsequently, multidetector volumetric imaging was performed from the thoracic inlet to below the diaphragms following the administration of 71 mL Omnipaque 350 intravenous contrast. No contrast reaction reported Sagittal, coronal, and MIP oblique sagittal reformatted images were obtained on the CT workstation, uploaded to PACS, and reviewed. This CT examination was performed using dose optimization techniques as appropriate, variously including the following: *Automated exposure control *Adjustment of mA and/or kV according to patient size (this includes techniques or standardized protocols for targeted exams where dose is matched to indication/reason for exam; i.e. extremities or head) *Use of iterative reconstruction technique Total exam dose-length product 395 mGy-cm FINDINGS: QUALITY OF STUDY/CONTRAST BOLUS: Satisfactory. PULMONARY ARTERIES: No intraluminal filling defects are noted within the visualized pulmonary arterial system to suggest the presence of pulmonary bullae. The main and central pulmonary arteries are normal in caliber.? THORACIC AORTA: No aneurysm or dissection. Making allowances for motion artifact, the ascending or aorta measures 3.8 cm in AP dimension. LUNG: Mild biapical pleural parenchymal scarring of the lungs is noted. Minimal posterior dependent atelectasis of the lungs is visualized. The visualized tracheobronchial system is normal in appearance. PLEURA: No pleural effusion or pneumothorax. MEDIASTINUM: No mediastinal lymphadenopathy. Normal heart size. No pericardial thickening or pericardial fluid collections. Partial visualization of mild coronary artery calcific atherosclerosis in the region of the left mainstem and left anterior descending coronary arteries. Partial visualization of calcific atherosclerosis within the distal right coronary artery.? No evidence of septal bowing or right heart strain. CHEST WALL/AXILLA: No axillary or internal mammary lymphadenopathy. OSSEOUS STRUCTURES: Minimal multilevel anterior endplate osteophytosis of the thoracic spine.? UPPER ABDOMEN: Normal appearance of the adrenal glands.? No reflux of contrast into the hepatic veins to suggest elevated right heart pressures. CT/CT angio chest PE protocol IMPRESSION: *CT pulmonary angiogram negative for pulmonary emboli. No acute cardiopulmonary abnormalities identified. *Partial visualization of mild scattered coronary artery calcific atherosclerosis. ? VTE: negative Dictated By: Darell Anand MD Signed By: Electronically signed by Darell Anand MD 05/29/21 5469 ECG Data ECG #1: Attestation: I personally reviewed and interpreted this ECG as follows: ECG interpretation date: 05/29/21 ECG interpretation time: 14:59 Prior ECG tracings: available for review Interpretation: Vent. Rate: 071 BPM ? ? Atrial Rate: 071 BPM P-R Int: 174 ms? QRS Dur: 094 ms QT Int: 384 ms ? ? ? P-R-T Axes: 044 -10 041 degrees QTc Int: 417 ms ? Normal sinus rhythm Normal ECG When compared with ECG of 23-FEB-2021 00:00, Nonspecific T wave abnormality no longer evident in Inferior leads Discharge Plan Discharge Clinical Impression: Chest pain Patient Disposition: Still a Patient Prescriptions: No Action simvastatin 40 mg tablet 40 mg PO BEDTIME Qty: 90 2RF lisinopril-hydrochlorothiazide 20-25 mg tablet 1 tab PO DAILY 30 Days Qty: 90 0RF omeprazole 40 mg capsule,delayed release(DR/EC) 40 mg PO DAILY 90 Days Qty: 90 3RF Flucelvax Quad (PF) 60 mcg (15 mcg x 4)/0.5 mL syringe IM 0RF polyethylene glycol 3350 [Miralax] 17 gram powder in packet 17 g PO DAILY 7 Days Qty: 7 0RF aspirin [Adult Aspirin Regimen] 81 mg tablet,delayed release (DR/EC) 81 mg PO DAILY 0RF Print Language: Pashto
[2021-05-29 15:57] LABS: MANUAL DIFF FLAG NO
[2021-05-29 16:04] LABS: Basophils Percent Auto 0.6 % (0-2); Eosinophils Absolute Auto 0.3 X10*3/uL (0.0-0.4); Eosinophils Percent Auto 5.7 % (0-4); Hematocrit 37.9 % (42.0-52.0); Hemoglobin 13.6 g/dl (14.0-18.0); Imm Gran Abs Auto 0.01 X10*3/uL (0.00-0.03); Imm Gran Pct Auto 0.2 % (0.0-0.4); Lymphocytes Absolute Auto 1.1 X10*3/uL (1.2-4.9); Lymphocytes Percent Auto 23.9 % (20-40); Mean Corpuscular HGB Conc 35.9 g/dl (31.0-36.0); Mean Corpuscular Hemoglobin 32.6 pg (27.0-33.0); Mean Corpuscular Volume 90.9 fL (80.0-98.0); Mean Platelet Volume 9.3 fL (9.4-12.4); Monocytes Absolute Auto 0.6 X10*3/uL (0.1-1.2); Monocytes Percent Auto 13.2 % (2-11); Neutrophils Absolute Auto 2.7 x10*3/uL (2.0-8.3); Neutrophils Percent Auto 56.4 % (45-73); Platelet Count 239 X10*3/uL (160-400); Red Blood Count 4.17 X10*6/uL (4.60-5.80); Red Cell Distribution Width 12.2 % (11.0-16.0); White Blood Count 4.8 X10*3/uL (4.8-10.8)
[2021-05-29] MEDS: Aspirin 81 MG TAB.CHEW 243 MG PO (16:08)
[2021-05-29] MEDS: Nitroglycerin 0.4 MG TAB.SUBL SUBLINGUAL (16:08)
[2021-05-29 16:17] LABS: COVID-19 Test Negative (Negative); IDNOW Serial# 16C4AD1C; Influenza A Negative (Negative); Influenza B2 Negative (Negative)
[2021-05-29 16:20] LABS: Alanine Aminotransferase 26 U/L (0-40); Albumin Level 4.5 g/dL (3.5-5.0); Alkaline Phosphatase 46 U/L (39-117); Anion Gap 14 (12-20); Aspartate Amino Transferase 23 U/L (5-37); Bilirubin Total 0.7 mg/dL (0.0-1.0); Blood Urea Nitrogen 16 mg/dL (9-16); Calcium 9.6 mg/dL (8.4-10.2); Carbon Dioxide 24 mmol/L (22-29); Chloride 104 mmol/L (96-108); Creatinine Clr Calc Pharmacy 104.5; Estimated Glomerular Filt Rate > 60; Glucose Random 90 mg/dL (60-115); Lipase 58 U/L (8-78); Magnesium 2.2 mg/dL (1.6-2.6); Potassium 4.1 mmol/L (3.3-5.1); Sodium 138 mmol/L (135-145); Total Protein 7.2 g/dL (6.5-8.0)
[2021-05-29 16:24] LABS: B Type Natriuretic Peptide 35 pg/mL (<100); Troponin-I High Sensitivity < 3.5 ng/L (<3.5-35.0)
[2021-05-29] MEDS: iohexoL 350 MG/ML 100 ML INFUS..BTL IV (16:52)
[2021-05-29 17:23] LABS: INTERNATIONAL NORM RATIO 1.1 (0.9-1.1); Prothrombin Time 12.8 SEC (9.9-13.0)
[2021-05-29 17:26] LABS: Partial Thromboplastin Time 31.4 SEC (24.1-38.0)
--- NOTE | 2021-05-29 17:51 | ECG_ITS ---
Test Reason : CP Blood Pressure : / mmHG Vent. Rate : 056 BPM Atrial Rate : 056 BPM P-R Int : 172 ms QRS Dur : 084 ms QT Int : 430 ms P-R-T Axes : 044 -02 026 degrees QTc Int : 414 ms Sinus bradycardia Otherwise normal ECG When compared with ECG of 29-MAY-2021 14:59, No significant change was found Referred By: Bradley Mancuso Electronically Signed By:Luis Fernando Peñaloza
[2021-05-29] MEDS: Nitroglycerin 2 % Oint 1 GM Packet 1 INCH TRANSDERMA (17:58)
[2021-05-29 18:50] VITALS: BP 112/62; PULSE 58; RESP 15; TEMP 36.7; O2SAT 94
[2021-05-29 19:19] LABS: Troponin-I High Sensitivity < 3.5 ng/L (<3.5-35.0)
--- NOTE | 2021-05-29 19:25 | PC.NURSE ---
Took report from Martín to assume care of PT, Pt in no apparent distress at this time, this RN continues to monitor.
[2021-05-29 20:15] VITALS: BP 111/71; PULSE 62; RESP 12; TEMP 36.7; O2SAT 95
== END 2021-05-29 20:26 | disposition home or self-care (01) ==
PROVIDERS: Physician Assistant Medical; Emergency Provider Internal Medicine; PCP Family Medicine
DX: R07.9 Chest pain, unspecified (principal); R06.02 Shortness of breath; Z20.822 Contact with and (suspected) exposure to COVID-19; I10 Essential (primary) hypertension; E78.5 Hyperlipidemia, unspecified
CPT/HCPCS: 36415; 71046; 71275; 80053; 83690; 83735; 83880; 84484; 85025; 85610; 85730; 87502; 87635; 93005; 99284; Q9967

== ENCOUNTER 2021-06-15 18:53 | Emergency (ER) | payer BC, SELFPAY ==
--- NOTE | ~2021-06-15 | XR_ITS ---
EXAMINATION: XR CHEST CLINICAL INFORMATION: Dizziness COMPARISON: CTA chest on 05/29/2021 TECHNIQUE: Frontal view of the chest was obtained. FINDINGS: No significant abnormality is noted involving the heart, lungs, mediastinum, bony thorax or soft tissues. XR/XR chest 1V IMPRESSION: Unremarkable examination.
--- NOTE | ~2021-06-15 | CT_ITS ---
EXAMINATION: CT HEAD WITHOUT CONTRAST CLINICAL INFORMATION: Dizziness COMPARISON: 03.23.2020 TECHNIQUE: Contiguous axial imaging was performed from the skull base to vertex without intravenous administration of contrast. This CT examination was performed using dose optimization techniques as appropriate, variously including the following: *Automated exposure control *Adjustment of mA and/or kV according to patient size (this includes techniques or standardized protocols for targeted exams where dose is matched to indication/reason for exam; i.e. extremities or head) *Use of iterative reconstruction technique DLP: 731 mGy-cm FINDINGS: There is no evidence of acute intracranial hemorrhage or territorial infarction. No abnormal mass effect or midline shift is seen. Ruffin to white matter differentiation is well preserved. No extra-axial fluid collections are identified. The ventricles are normal in size. Minimal patchy subcortical and periventricular white matter low-attenuation changes are stable from prior and statistically related to chronic small vessel ischemic disease. The osseous structures and soft tissues are normal. Mild mucosal thickening within right maxillary sinus. Remaining paranasal sinuses and mastoid air cells are relatively clear. CT/CT head/brain wo con IMPRESSION: No acute intracranial pathology.
--- NOTE | 2021-06-15 19:41 | ECG_ITS ---
Test Reason : DIZZINESS Blood Pressure : / mmHG Vent. Rate : 056 BPM Atrial Rate : 056 BPM P-R Int : 192 ms QRS Dur : 094 ms QT Int : 434 ms P-R-T Axes : 043 003 020 degrees QTc Int : 418 ms Sinus bradycardia Otherwise normal ECG When compared with ECG of 29-MAY-2021 18:02, No significant change was found Referred By: Generic ED Physician Electronically Signed By:Luis Fernando Peñaloza
[2021-06-15 20:34] VITALS: BP 121/59; PULSE 60; RESP 19; TEMP 36.3; O2SAT 98; BMI 27.9
[2021-06-15 20:41] LABS: MANUAL DIFF FLAG NO
[2021-06-15 20:53] LABS: Basophils Percent Auto 0.3 % (0-2); Eosinophils Absolute Auto 0.2 X10*3/uL (0.0-0.4); Eosinophils Percent Auto 1.3 % (0-4); Hematocrit 40.8 % (42.0-52.0); Hemoglobin 14.4 g/dl (14.0-18.0); Imm Gran Abs Auto 0.09 X10*3/uL (0.00-0.03); Imm Gran Pct Auto 0.8 % (0.0-0.4); Mean Corpuscular HGB Conc 35.3 g/dl (31.0-36.0); Mean Corpuscular Hemoglobin 32.5 pg (27.0-33.0); Mean Corpuscular Volume 92.1 fL (80.0-98.0); Monocytes Absolute Auto 0.8 X10*3/uL (0.1-1.2); Neutrophils Absolute Auto 9.9 x10*3/uL (2.0-8.3); Neutrophils Percent Auto 82.6 % (45-73); Platelet Count 259 X10*3/uL (160-400); Red Blood Count 4.43 X10*6/uL (4.60-5.80); Red Cell Distribution Width 12.5 % (11.0-16.0); White Blood Count 11.9 X10*3/uL (4.8-10.8)
[2021-06-15 20:57] LABS: Anion Gap 14 (12-20); Blood Urea Nitrogen 25 mg/dL (9-16); Calcium 9.8 mg/dL (8.4-10.2); Carbon Dioxide 25 mmol/L (22-29); Chloride 101 mmol/L (96-108); Creatinine Clr Calc Pharmacy 90.3; Estimated Glomerular Filt Rate > 60; Glucose Random 120 mg/dL (60-115); Potassium 4.6 mmol/L (3.3-5.1); Sodium 135 mmol/L (135-145)
[2021-06-15 21:03] LABS: Troponin-I High Sensitivity < 3.5 ng/L (<3.5-35.0)
[2021-06-16 01:49] VITALS: BP 129/61; PULSE 67; RESP 16; O2SAT 97
--- NOTE | 2021-06-16 02:25 | ED.DIZZY ---
HPI - Dizziness General Chief Complaint: Dizziness Stated Complaint: dizziness/vomiting Time Seen by Provider: 06/15/21 22:02 Source: patient Mode of arrival: ambulatory Limitations: no limitations History of Present Illness HPI Narrative: 66-year-old male who presents emergency department for evaluation of dizziness headache and nausea. Patient states he has been having intermittent dizziness for 1 month. He states that the dizziness comes and goes. He describes the dizziness as the room moving and spinning. The dizziness is worse if he bends over stands up. The patient states that last night he developed dizziness. He states that objects removing in the room was spinning. He had nausea and vomited several times. States that he also has a headache which is been intermittent and associated with the dizziness. The headache is located on the top of his head and describes it as a throbbing sensation which is greater than 10/10 patient states that he has had loose stools for several weeks, he has not noticed any blood in his stool or dark tarry stools. He denied fever, chills. The patient states that he was seen at an urgent care clinic and was treated with Augmentin for 7 days for sinus infection with no improvement of his symptoms. He was also seen here on 05/29/2021 for chest pain with a negative workup including a CT pulmonary angiogram PE protocol. He denied fever, chills, rhinorrhea, sore throat. He states he has an occasional nonproductive cough. He denied chest pain. He states that he feels short of breath but this is chronic. He denied numbness, weakness, loss of bowel or bladder control. Related Data Home Medications Medication Instructions Recorded Confirmed aspirin 81 mg tablet,delayed 81 mg PO DAILY 01/02/20 02/14/20 release (Adult Aspirin Regimen) flu vac qs 2019(4 yr up)CD(PF) ml IM 03/17/20 Previous Rx's Medication Instructions Recorded simvastatin 40 mg tablet 40 mg PO BEDTIME #90 tab 11/17/20 polyethylene glycol 3350 17 gram 17 g PO DAILY 7 Days #7 ea 02/23/21 oral powder packet (Miralax) omeprazole 40 mg capsule,delayed 40 mg PO DAILY 90 Days #90 cap 04/14/21 release blood pressure monitor #1 ea 05/31/21 hydrochlorothiazide 25 mg tablet 12.5 mg PO BID 90 Days #90 tab 05/31/21 lisinopril 20 mg tablet 20 mg PO DAILY 90 Days #90 tab 05/31/21 meclizine 25 mg tablet (Dramamine 25 mg PO TID PRN #20 tab 06/16/21 Less Drowsy) Allergies Allergy/AdvReac Type Severity Reaction Status Date / Time No Known Allergies Allergy Verified 06/15/21 20:37 Review of Systems Review of Systems: Yes all other systems are reviewed and are negative [facility] Past Medical History [facility] Narrative: Social history: The patient denies tobacco use. He states he drinks alcohol occasionally but has not had any alcohol to drink for 4 months. He denies drug use. Medical History Aortic aneurysm HTN (hypertension) Osteoarthritis of right knee Pulmonary fibrosis Right knee pain Surgical History H/O arthroscopic knee surgery History of appendectomy Family History Family History Father No problems noted. Mother No problems noted. Brother Pulmonary fibrosis Social History Social History Housing: House Alcohol intake: never Patient Tobacco Use Status: Never used Tobacco e-Cigarette/Vaping Use: Never Used Second Hand Smoke Exposure: No Advance Directives: No Current occupational status: employed 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 Cognitive needs: No Hearing needs: No Vision needs: No Physical Exam Vital Signs: Vital Signs: Last Vital Signs Temp 97.4 F 06/15/21 20:34 Pulse 67 06/16/21 01:49 Resp 16 06/16/21 01:49 BP 129/61 06/16/21 01:49 Pulse Ox 97 06/16/21 01:49 BMI result Body Mass Index 27.9 Const: General: cooperative and no acute distress Orientation/consciousness: oriented to person and oriented to place Limitations: no limitations HEENT: Head: Yes normal to inspection, Yes normocephalic and Yes atraumatic Ears: external ears normal General nose exam: Normal external nose present Face and sinus: Yes normal facial exam Mouth: Normal oral and palatal mucosa present Throat: Yes posterior oropharynx normal Eyes: Other: Lateral nystagmus General: appearance normal, both eyes and all related structures Pupils: Equal, round and reactive pupils present Neck: Neck: Yes normal visual inspection, Yes no lymphadenopathy, Yes trachea midline and Yes supple Chest: Chest palpation & inspection: normal inspection of the chest and normal palpation of entire chest wall Resp: Effort & Inspection: normal respiratory effort and able to speak in complete sentences Auscultation: clear to auscultation bilaterally Cardio: Rate: regular rate Rhythm: regular rhythm Heart sounds: S1 normal heart sound present, S2 normal heart sound present and no murmurs GI: Inspection: Yes normal to inspection Palpation (GI): Soft to palpation, nontender and no guarding Auscultation: normal bowel sounds : General: Yes no CVA tenderness Back/Spine/Pelvis: Back: no CVA tenderness Skin: General skin exam: no rashes or lesions noted Neuro: General: oriented to person and oriented to place Cranial nerves: Yes CN's II-XII intact bilaterally and Yes Equal, round and reactive pupils present Cognition (Neuro): normal cognition Motor exam (neuro): 5/5 motor strength present throughout Coordination: [id number] test normal and fvfo-[id number] test normal Extrem: General: Yes normal to inspection Psych: Appearance: grossly normal Speech and movement: Normal speech and movement present Affect: normal affect Attitude: cooperative Thought process: Normal thought process present Thought content: Normal thought content present Course Course Course Narrative: 66-year-old male who presents emergency department for evaluation of intermittent dizziness x1 month, headache, nausea, and vomiting. Vital signs were unremarkable. Examination did reveal lateral nystagmus and dizziness which was worse with position change. His neurologic exam was otherwise nonfocal. Laboratory evaluation included CBC, BMP, troponin which were unremarkable. CT scan of the head was interpreted as no acute intracranial pathology by the radiologist. One-view chest x-ray was interpreted as an unremarkable examination by the radiologist. The patient's symptoms are consistent with positional vertigo and I did discuss this with him. The patient was taking hydrochlorothiazide 25 mg once a day but is dose was decreased to 12.5 mg 2 weeks prior I did tell him that sometimes hydrochlorothiazide can sometimes help with vertigo that he should ask his doctor about increasing his dose to 25 mg once a day. Patient will also be started on meclizine and Tylenol. MDM - Dizziness Lab Data Result diagrams: 06/15/21 20:38 06/15/21 20:38 Labs: Lab Results 06/15/21 06/15/21 06/15/21 Range/Units 20:38 20:38 20:38 WBC 11.9 H (4.8-10.8) X10*3/uL RBC 4.43 L (4.60-5.80) X10*6/uL Hgb 14.4 (14.0-18.0) g/dl Hct 40.8 L (42.0-52.0) % MCV 92.1 (80.0-98.0) fL MCH 32.5 (27.0-33.0) pg MCHC 35.3 (31.0-36.0) g/dl RDW 12.5 (11.0-16.0) % Plt Count 259 (160-400) X10*3/uL MPV 9.0 L (9.4-12.4) fL Immature Gran % (Auto) 0.8 H (0.0-0.4) % Neut % (Auto) 82.6 H (45-73) % Lymph % (Auto) 8.0 L (20-40) % Pen[place] % (Auto) 7.0 (2-11) % Eos % (Auto) 1.3 (0-4) % Baso % (Auto) 0.3 (0-2) % Lymph # (Auto) 1.0 L (1.2-4.9) X10*3/uL [place] # (Auto) 0.8 (0.1-1.2) X10*3/uL Eos # (Auto) 0.2 (0.0-0.4) X10*3/uL Baso # (Auto) 0.0 (0.0-0.2) X10*3/uL Abs Immat Gran (auto) 0.09 H (0.00-0.03) X10*3/uL Absolute Neuts (auto) 9.9 H (2.0-8.3) x10*3/uL Absolute Nucleated RBC 0.000 (0.0-0.012) X10*3/uL Nucleated RBC % (auto) 0.0 (0.0-0.2) /100WBC Sodium 135 (135-145) mmol/L Potassium 4.6 (3.3-5.1) mmol/L Chloride 101 (96-108) mmol/L Carbon Dioxide 25 (22-29) mmol/L Anion Gap 14 (12-20) BUN 25 H D (9-16) mg/dL Creatinine 1.01 (0.5-1.4) mg/dL Estim Creat Clear Calc 90.3 Estimated GFR > 60 Random Glucose 120 H (60-115) mg/dL Calcium 9.8 (8.4-10.2) mg/dL Troponin I High Sens < 3.5 (<3.5-35.0) ng/L Discharge Plan Discharge Clinical Impression: Vertigo Headache Qualifiers: Headache type: unspecified Intractability: not intractable Patient Disposition: Home, Self-Care Instructions: Benign Paroxysmal Positional Vertigo (ED) Additional Instructions: Your symptoms are consistent with positional vertigo, this is usually related to the balance mechanism in your inner ear. Take meclizine 25 mg pills, 1 pill 3 times a day for the next 3 days for dizziness then as needed for dizziness. This medication will make you sleepy. Do not drive or work while taking this medication. Sometimes positional vertigo was treated with hydrochlorothiazide. You should discuss with your doctor about increasing the dose of hydrochlorothiazide back to 25 mg once a day. Do not do this him assure doctor agrees with this treatment plan. Take Tylenol (acetaminophen) 325 mg pills, 2 pills every 6 hours as needed for pain. Prescriptions: New meclizine [Dramamine Less Drowsy] 25 mg tablet 25 mg PO TID PRN (Reason: dizziness) Qty: 20 0RF No Action simvastatin 40 mg tablet 40 mg PO BEDTIME Qty: 90 2RF omeprazole 40 mg capsule,delayed release(DR/EC) 40 mg PO DAILY 90 Days Qty: 90 3RF Flucelvax Quad [id number] (PF) 60 mcg (15 mcg x 4)/0.5 mL syringe IM 0RF lisinopril 20 mg tablet 20 mg PO DAILY 90 Days Qty: 90 1RF hydrochlorothiazide 25 mg tablet 12.5 mg PO BID 90 Days Qty: 90 1RF (DME) blood pressure monitor Kit See Rx Instructions .ROUTE .MEDSUPPLY Qty: 1 0RF Rx Instructions: Automatic, Digital. Dx: I10. Daily As directed, 999 days/lifetime polyethylene glycol 3350 [Miralax] 17 gram powder in packet 17 g PO DAILY 7 Days Qty: 7 0RF aspirin [Adult Aspirin Regimen] 81 mg tablet,delayed release (DR/EC) 81 mg PO DAILY 0RF
[2021-06-16] MEDS: Meclizine HCl 25 MG TABLET PO (02:37)
[2021-06-16] MEDS: Acetaminophen 325 MG TABLET 650 MG PO (02:37)
== END 2021-06-16 02:54 | disposition home or self-care (01) ==
PROVIDERS: Emergency Provider Emergency Medicine Emergency Medical Services; PCP Family Medicine
DX: R42 Dizziness and giddiness (principal); R51.9 Headache, unspecified; R07.89 Other chest pain; Z20.822 Contact with and (suspected) exposure to COVID-19; Z79.899 Other long term (current) drug therapy
CPT/HCPCS: 36415; 70450; 71045; 80048; 84484; 85025; 93005; 99284

== ENCOUNTER 2021-07-08 09:00 | Outpatient (RCR) | payer BC, SELFPAY ==
[2021-06-29 11:58] VITALS: BP 142/78; PULSE 77; O2SAT 98
== END 2021-09-23 08:40 | disposition home or self-care (01) ==
LOC: HO.PTWFD 09:00
PROVIDERS: PCP Family Medicine; Visit Provider Family Medicine
DX: H83.02 Labyrinthitis, left ear (principal)
CPT/HCPCS: 95992; 97162

== ENCOUNTER 2021-07-28 11:39 | Outpatient (REF) | payer BC, SELFPAY ==
[2021-07-28 12:48] LABS: Influenza A PCR NEGATIVE (Negative); Influenza B PCR NEGATIVE (Negative); Resp Syncy Virus RNA Qual PCR NEGATIVE (Negative); SARS COV2 PCR INHOUSE NEGATIVE (Negative)
== END 2021-07-28 11:40 | disposition home or self-care (01) ==
LOC: HO.LNP 11:39
PROVIDERS: Visit Provider Hospitalist
DX: Z20.822 Contact with and (suspected) exposure to COVID-19 (principal); R09.89 Other specified symptoms and signs involving the circulatory and respiratory systems
CPT/HCPCS: 0241U

== ENCOUNTER 2021-08-04 13:28 | Outpatient (REF) | payer BC, SELFPAY ==
[2021-08-05 12:19] LABS: Influenza A PCR NEGATIVE (Negative); Influenza B PCR NEGATIVE (Negative); Resp Syncy Virus RNA Qual PCR NEGATIVE (Negative); SARS COV2 PCR INHOUSE NEGATIVE (Negative)
== END 2021-08-04 13:29 | disposition home or self-care (01) ==
LOC: HO.LNP 13:28
PROVIDERS: Visit Provider Hospitalist
DX: Z20.822 Contact with and (suspected) exposure to COVID-19 (principal); R09.89 Other specified symptoms and signs involving the circulatory and respiratory systems; R05.9 Cough, unspecified
CPT/HCPCS: 0241U

== ENCOUNTER 2021-09-22 09:16 | Outpatient (REF) | payer BC, SELFPAY ==
[2021-09-22 11:32] LABS: Appearance Urine CLEAR; Color Urine YELLOW; Glucose Urine UA NEG (NEG); Leukocyte Esterase Urine NEG (NEG); Nitrite Urine NEG (NEG); Specific Gravity - Urine 1.025 (1.005-1.025); Urine Blood NEG (NEG); Urine Ketones NEG (NEG); Urine Protein NEG (NEG-TRACE)
[2021-09-22 11:35] LABS: Basophils Percent Auto 0.9 % (0-2); Eosinophils Absolute Auto 0.7 X10*3/uL (0.0-0.4); Eosinophils Percent Auto 16.4 % (0-4); Hematocrit 38.9 % (42.0-52.0); Imm Gran Abs Auto 0.01 X10*3/uL (0.00-0.03); Imm Gran Pct Auto 0.2 % (0.0-0.4); Lymphocytes Absolute Auto 1.3 X10*3/uL (1.2-4.9); Lymphocytes Percent Auto 30.1 % (20-40); MANUAL DIFF FLAG SCAN; Mean Corpuscular HGB Conc 33.4 g/dl (31.0-36.0); Mean Corpuscular Hemoglobin 31.8 pg (27.0-33.0); Mean Corpuscular Volume 95.1 fL (80.0-98.0); Monocytes Absolute Auto 0.6 X10*3/uL (0.1-1.2); Monocytes Percent Auto 13.3 % (2-11); Neutrophils Absolute Auto 1.7 x10*3/uL (2.0-8.3); Neutrophils Percent Auto 39.1 % (45-73); PLT CLUMP 1; Red Blood Count 4.09 X10*6/uL (4.60-5.80); Red Cell Distribution Width 11.9 % (11.0-16.0); SCAN SMEAR FLAG 1
[2021-09-22 11:51] LABS: Alanine Aminotransferase 30 U/L (0-40); Albumin Level 4.7 g/dL (3.5-5.0); Alkaline Phosphatase 54 U/L (39-117); Anion Gap 10 (12-20); Aspartate Amino Transferase 31 U/L (5-37); Bilirubin Total 0.6 mg/dL (0.0-1.0); Blood Urea Nitrogen 18 mg/dL (9-16); Calcium 9.1 mg/dL (8.4-10.2); Carbon Dioxide 27 mmol/L (22-29); Chloride 106 mmol/L (96-108); Cholesterol 137 mg/dL; Estimated Glomerular Filt Rate > 60; Glucose Fasting 80 mg/dL (60-99); HDL Cholesterol 39 mg/dL; LDL Cholesterol Calculated 84 mg/dl; Potassium 4.4 mmol/L (3.3-5.1); Sodium 139 mmol/L (135-145); Total Protein 7.3 g/dL (6.5-8.0); Triglycerides 71 mg/dL
[2021-09-22 11:58] LABS: Platelet Count 152 X10*3/uL (160-400); White Blood Count 4.2 X10*3/uL (4.8-10.8)
[2021-09-22 11:59] LABS: SLIDE REVIEW VERIFIED
[2021-09-22 12:01] LABS: Creatinine Urine 148.14 mg/dL; Microalbum/Creatinine Ratio Ur 5.4 ug/mg cr
[2021-09-22 12:13] LABS: Prostate Specific Antigen Scr 0.36 ng/mL (<0.05-4.0); TSH reflex Free T4 2.39 uIU/mL (0.32-4.0)
== END 2021-09-22 09:17 | disposition home or self-care (01) ==
LOC: HO.WFDLDS 09:16
PROVIDERS: Visit Provider Family Medicine
DX: Z00.00 Encounter for general adult medical examination without abnormal findings (principal); Z12.5 Encounter for screening for malignant neoplasm of prostate; I10 Essential (primary) hypertension
CPT/HCPCS: 36415; 80053; 80061; 81003; 82043; 84153; 84443; 85025

== ENCOUNTER 2022-04-11 10:42 | Outpatient (REF) | payer MEDICARE, SELFPAY ==
[2022-04-11 14:35] LABS: Estimated Average Glucose 103 mg/dL; Hemoglobin A1c % 5.2 %
[2022-04-11 14:43] LABS: Alanine Aminotransferase 26 U/L (0-40); Albumin Level 4.8 g/dL (3.5-5.0); Alkaline Phosphatase 49 U/L (39-117); Anion Gap 15 (12-20); Aspartate Amino Transferase 25 U/L (5-37); Blood Urea Nitrogen 15 mg/dL (9-16); Carbon Dioxide 24 mmol/L (22-29); Chloride 105 mmol/L (96-108); Cholesterol 156 mg/dL; Estimated Glomerular Filt Rate > 60; Glucose Fasting 88 mg/dL (60-99); HDL Cholesterol 46 mg/dL; LDL Cholesterol Calculated 94 mg/dl; Potassium 4.1 mmol/L (3.3-5.1); Sodium 140 mmol/L (135-145); Total Protein 7.3 g/dL (6.5-8.0); Triglycerides 81 mg/dL
== END 2022-04-11 10:43 | disposition home or self-care (01) ==
LOC: HO.WFDLDS 10:42
PROVIDERS: Visit Provider Family Medicine
DX: Z00.00 Encounter for general adult medical examination without abnormal findings (principal); E78.6 Lipoprotein deficiency; I10 Essential (primary) hypertension; R73.01 Impaired fasting glucose
CPT/HCPCS: 36415; 80053; 80061; 83036

== ENCOUNTER → 2022-04-15 09:16 | Outpatient (REF) | payer MEDICARE, BC, SELFPAY ==
--- NOTE | 2022-04-15 09:19 | CA_ITS ---
Acquisition Time: 2022-04-15 09:20:38 Total Exercise Time: 00:07:39 Test Indications: CHEST PAIN Medications: HCTZ LISINOPRIL ASA SIMVASTATIN Protocol: SKYE Max HR: 139 BPM 89% of Pred: 156 BPM Max BP: 172/088 mmHG Max Work Load: 9.5 METS Exercise stress test with exercise 7 min 39 sec of Skye protocol, achieving 90% MPHR, with moderate sob, no chest discomfort, with rare isolated PAC, PVC and one ventricular cuplet, with normotensive response to exercise, without EKG changes meetin criteria for ischemia. Test reviewed with Dr Starkey Referred By: Dewayne Cardona Overread By: ADOLFO LOPEZ
== END ==
LOC: HO.CARD 09:16
PROVIDERS: PCP Family Medicine; Visit Provider Family Medicine
DX: R07.9 Chest pain, unspecified (principal)
CPT/HCPCS: 93017

== ENCOUNTER 2022-09-21 09:12 | Outpatient (REF) | payer MEDICARE, BC, SELFPAY ==
[2022-09-21 11:25] LABS: MANUAL DIFF FLAG NO
[2022-09-21 11:45] LABS: Eosinophils Absolute Auto 0.4 X10*3/uL (0.0-0.4); Eosinophils Percent Auto 10.1 % (0-4); Hematocrit 40.2 % (42.0-52.0); Hemoglobin 13.8 g/dl (14.0-18.0); Imm Gran Abs Auto 0.01 X10*3/uL (0.00-0.03); Imm Gran Pct Auto 0.2 % (0.0-0.4); Lymphocytes Absolute Auto 1.1 X10*3/uL (1.2-4.9); Lymphocytes Percent Auto 26.2 % (20-40); Mean Corpuscular HGB Conc 34.3 g/dl (31.0-36.0); Mean Corpuscular Hemoglobin 32.3 pg (27.0-33.0); Mean Corpuscular Volume 94.1 fL (80.0-98.0); Mean Platelet Volume 9.8 fL (9.4-12.4); Monocytes Absolute Auto 0.5 X10*3/uL (0.1-1.2); Monocytes Percent Auto 12.6 % (2-11); Neutrophils Percent Auto 49.9 % (45-73); Platelet Count 234 X10*3/uL (160-400); Red Blood Count 4.27 X10*6/uL (4.60-5.80); Red Cell Distribution Width 11.9 % (11.0-16.0)
[2022-09-21 12:10] LABS: Alanine Aminotransferase 24 U/L (0-40); Albumin Level 4.5 g/dL (3.5-5.0); Alkaline Phosphatase 49 U/L (39-117); Aspartate Amino Transferase 24 U/L (5-37); Bilirubin Total 0.9 mg/dL (0.0-1.0); Blood Urea Nitrogen 23 mg/dL (9-16); Calcium 9.9 mg/dL (8.4-10.2); Chloride 105 mmol/L (96-108); Estimated Glomerular Filt Rate > 60; Glucose Fasting 78 mg/dL (60-99); Sodium 138 mmol/L (135-145); Total Protein 7.3 g/dL (6.5-8.0)
[2022-09-21 12:23] LABS: Appearance Urine Clear; Color Urine Yellow; Glucose Urine UA Negative (Negative); Leukocyte Esterase Urine Negative (Negative); Nitrite Urine Negative (Negative); PH 5.5 (5.0-9.0); Urine Blood Negative (Negative); Urine Ketones Negative (Negative); Urine Protein Negative (Neg-Trace)
[2022-09-21 12:32] LABS: TSH reflex Free T4 2.57 uIU/mL (0.32-4.0)
[2022-09-21 13:08] LABS: Microalbumin Urine < 5.0 mg/L
[2022-09-21 18:23] LABS: Carbon Dioxide 21 mmol/L (22-29)
== END 2022-09-21 09:13 | disposition home or self-care (01) ==
LOC: HO.WFDLDS 09:12
PROVIDERS: Visit Provider Family Medicine
DX: Z00.00 Encounter for general adult medical examination without abnormal findings (principal); I10 Essential (primary) hypertension
CPT/HCPCS: 36415; 80053; 81003; 82043; 84443; 85025

== ENCOUNTER 2022-09-28 09:04 | Outpatient (AMB) | payer MEDICARE, SELFPAY ==
--- NOTE | 2022-09-28 09:08 | A.OFFPC_ITS ---
Vital Signs 09/28/22 09:16 Height 6 ft 1 in Weight 201 lb 2 oz BMI 26.5 BP 120/70 Blood Pressure Location Rt brachial Position Sitting Respiration 14 Pulse 68 Pulse Source Pulse Oximeter Temp 98.9 F Temp Source Temporal Artery Scan Pulse Oximetry (%) 97 Oxygen Delivery Method Room Air Intake Visit Reasons: Extended exam with f/u labs and health maintenance Intake Note: Patient is here for a physical and a follow-up regarding lab results. Last labs were drawn 09/21/2022. 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 Dx: I10. Daily As directed, 999 days/lifetime cyanocobalamin (vitamin B-12) (Vitamin B-12) 1,000 mcg PO DAILY hydrochlorothiazide 25 mg PO DAILY 90 days lisinopril (Zestril) 20 mg PO DAILY 90 days simvastatin 40 mg PO BEDTIME Tobacco use date assessed: 04/11/22 Fall risk assessment: No Falls in past year Last assessed Fall Risk: 09/28/22 Dental Screening Dental Screen Date: 09/28/22 Did you have a dental visit in the last 12 months?: No Did you have a dental problem in the last 6 months where you did not have access to dental care?: No Was dental information given to patient?: Patient has dentist HPI Extended exam with f/u labs and health maintenance HPI Details 67 y/o male presents for an extended exam with f/u labs and health maintenance. Labs were drawn 09/19/22. Reviewed labs with pt. Mild anemia. He reports he had been put on vitamin B12. He notes he has not been taking this daily. Cholesterol levels less than a year ago had been good. He reports chest pain that varies in length. He reports chest pain is intermittent. He reports exertion causes the chest pain and pain improves after resting. Recent stress test was fine. He reports diarrhea. [facility], [facility] Medical History Aortic aneurysm Cough HTN (hypertension) Osteoarthritis of right knee Right knee pain Surgical History H/O arthroscopic knee surgery History of appendectomy History of inguinal hernia repair Family History Father CHF (congestive heart failure) Mother No problems noted. 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 Tyler Johnson, Orly Parker, Ankit Banda and colleagues, with an educational simone from [employer]. Review of Systems Const Denies chills, Denies fatigue, Denies fever(s), Denies headache(s) and Denies weakness Eyes Denies change in vision ENT Denies dizziness, Denies headache(s), Denies hearing loss, Denies nasal congestion, Denies sinus pain, Denies sinus pressure and Denies sore throat Card Denies chest pain, Denies lightheadedness, Denies dyspnea and Denies other (palpitations) Resp Denies cough, Denies dyspnea and Denies wheezing GI Denies abdominal pain, Denies melena, Denies hematochezia, Denies change in bowel habits, Denies dyspepsia and Denies nausea Denies hematuria and Denies dysuria Musc Denies abnormal gait, Denies myalgias, Denies arthralgias, Denies numbness and Denies tingling Skin/Breast Denies rash, Denies unusual bruising and Denies wounds Neuro Denies abnormal gait, Denies dizziness, Denies headache(s), Denies memory loss, Denies numbness, Denies Sensory deficit (Neuro), Denies tingling and Denies weakness Psych Denies anxiety, Denies depression and Denies memory loss Endo Denies cold intolerance, Denies fatigue, Denies heat intolerance, Denies polydipsia and Denies polyuria Rakesh/Lymph Denies easy bleeding and Denies easy bruising Aller/Immun Denies wheezing Physical exam (Primary Care) Vital Signs: Last Vital Signs Temp 98.9 F 09/28/22 09:16 Pulse 68 09/28/22 09:16 Resp 14 09/28/22 09:16 BP 120/70 09/28/22 09:16 Pulse Ox 97 09/28/22 09:16 Oxygen Delivery Method Room Air 09/28/22 09:16 BMI result Body Mass Index 26.5 Tobacco/Smoking Status: Tobacco use Status Tobacco use date assessed 04/11/22 09/28/22 09:10 Patient Tobacco Use Status Never used Tobacco 09/28/22 09:10 e-Cigarette/Vaping Use Never Used 09/28/22 09:10 Thrive Assessment: Date of Thrive Assessment Date Thrive assessed 05/31/21 09/28/22 09:10 Const General: no acute distress, well developed, alert and awake Nutritional Appearance: well nourished Orientation/consciousness: patient oriented x3 HENMT Head: Yes normocephalic and Yes atraumatic Ears: hearing grossly normal bilaterally and TM's normal bilaterally General nose exam: Normal external nose present and Normal nares present Mouth: Normal oral and palatal mucosa present and moist mucous membranes Teeth and gingiva: dentition normal Throat: Yes posterior oropharynx normal Eyes General: appearance normal, both eyes and all related structures Pupils: Equal, round and reactive pupils present and Pupil accommodation reflex normal EOM: EOMs intact bilaterally Neck Neck: Yes normal visual inspection, Yes no lymphadenopathy and Yes trachea midline Thyroid: Thyroid normal Carotids: no bruits Lymphatic: no lymphadenopathy noted Chest Chest palpation & inspection: normal inspection of the chest Resp Effort & Inspection: normal respiratory effort Auscultation: clear to auscultation bilaterally Cardio Rate: regular rate Rhythm: regular rhythm Heart sounds: S1 normal heart sound present, S2 normal heart sound present, no gallops, no murmurs and no rubs Bruits: no abdominal aortic bruits and no carotid bruits GI Palpation (GI): No Abdominal aortic bruit present, Soft to palpation, nontender, No hepatosplenomegaly present and No Rebound tenderness present Auscultation: normal bowel sounds General: Yes no CVA tenderness Back/Spine/Pelvis Back: no CVA tenderness Cervical Spine: cervical ROM normal and No Cervical spine tenderness Thoracic/Lumbar Spine: thoraco-lumbar ROM normal, No pain with thoraco-lumbar ROM, No thoracic spinal tenderness and No lumbar spinal tenderness Skin Lesions: no lesions Rashes: no rashes Trauma: no lacerations or abrasions Wounds: no wounds Nails: normal Neuro General: patient oriented x3 Cranial nerves: Yes Equal, round and reactive pupils present Cognition (Neuro): normal cognition Gait exam (Neuro): Normal gait present Motor exam (neuro): 5/5 motor strength present throughout Sensory Exam: No Sensory deficit (Neuro) Deep tendon reflexes (DTR's): Right patellar reflex intensity grade: 2+ and Left patellar reflex intensity grade: 2+ Extrem General: Yes normal to inspection and No edema Psych Appearance: grossly normal Affect: normal affect Attitude: cooperative Thought process: Normal thought process present Assessment and Plan Assessment & Plan (1) Essential hypertension: Comment: Blood pressure goal is less than 120/70 due to aortic aneurysm Code(s): I10 - Essential (primary) hypertension Plan: Blood pressure at 120/70-fairly good control. Goal is less than 120/70 (2) Hyperlipidemia: Code(s): E78.5 - Hyperlipidemia, unspecified Plan: Lipids drawn in April were controlled on simvastatin Continue current medication (3) Chest pain on exertion: Code(s): R07.9 - Chest pain, unspecified Plan: Patient notes some ongoing chest pain with exertion. No change from earlier this year and he had a stress test in April which did not show any ischemia Follow-up with Cardiology . Exertion and go to the emergency department if pain is lasting more than 5-10 minutes. (4) Diarrhea: Code(s): R19.7 - Diarrhea, unspecified Plan: Hydrate well and trial FiberCon (5) Mild anemia: Code(s): D64.9 - Anemia, unspecified Plan: Had seen Hematology-Oncology was given B12 though he is not taking it every day Take B12 as prescribed (6) Screening for prostate cancer: Code(s): Z12.5 - Encounter for screening for malignant neoplasm of prostate Plan: PSA about a year ago was within normal limits No problems with urination stream. No pain with urination. (7) Adult general medical exam: Code(s): Z00.00 - Encounter for general adult medical examination without abnormal f indings Plan: 67-year-old male presents for complete physical exam Encouraged healthy diet with active lifestyle and plenty of exercise Medications: New calcium polycarbophil (FiberCon) 625 mg PO DAILY 30 days 30 tabs 2RF Coding Level of Care Code Est Pt Level 4 (00606) Diagnoses Essential hypertension I10 Hyperlipidemia E78.5 Chest pain on exertion R07.9 Diarrhea R19.7 Mild anemia D64.9 Screening for prostate cancer Z12.5 Adult general medical exam Z00.00
[2022-09-28 09:16] VITALS: BP 120/70; PULSE 68; RESP 14; TEMP 37.2; O2SAT 97; BMI 26.5
== END 2022-09-28 09:53 | disposition home or self-care (01) ==
PROVIDERS: Visit Provider Family Medicine
DX: I10 Essential (primary) hypertension (principal); E78.5 Hyperlipidemia, unspecified; R07.9 Chest pain, unspecified; R19.7 Diarrhea, unspecified; D64.9 Anemia, unspecified; Z12.5 Encounter for screening for malignant neoplasm of prostate; Z00.00 Encounter for general adult medical examination without abnormal findings
CPT/HCPCS: 99214

== ENCOUNTER 2022-10-29 09:20 | Outpatient (AMB) | payer MEDICARE, SELFPAY ==
[2022-10-29 09:52] VITALS: BP 112/70; PULSE 61; TEMP 36.7; O2SAT 97; BMI 26.9
--- NOTE | 2022-10-29 09:52 | MHC.OFFWIV ---
Intake Vital Signs 10/29/22 09:52 Height 6 ft 1 in Weight 204 lb BMI 26.9 BP 112/70 Blood Pressure Location Lt brachial Position Sitting Pulse 61 Pulse Source Pulse Oximeter Temp 98.1 F Temp Source Oral Pulse Oximetry (%) 97 Oxygen Delivery Method Room Air Intake Visit Reasons: Rt side ribs fracture? Intake Note: Patient is here with possible right side rib fracture and slipped on wet grass and hit a metal bar coming down on Monday. Patient Tobacco Use Status: Never used Tobacco Allergies No Known Allergies Allergy (Verified 10/29/22 09:55) Do you need a note to return to daycare/school/sports/work: No HPI HPI Comments History of Present Illness Details This is a 67-year-old male who presents to the office today for sick visit. Patient complaining of right-sided rib pain x3 days. Patient states he slipped on wet grass and landed on a metal bar on his right side. He reports pain with deep breath but otherwise denies any shortness of breath. He is otherwise feeling well. [facility] Medical History Aortic aneurysm Cough HTN (hypertension) Osteoarthritis of right knee Right knee pain Surgical History H/O arthroscopic knee surgery History of appendectomy History of inguinal hernia repair Family History Father CHF (congestive heart failure) Mother No problems noted. 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 Current occupational exposures/hazards: No Cognitive needs: No Hearing needs: No Vision needs: No Review of Systems Const All systems reviewed & are unremarkable except as noted in HPI and below Reports no additional complaints Eyes Reports no additional complaints ENT Reports no additional complaints Card Reports no additional complaints Resp Reports no additional complaints GI Reports no additional complaints Reports no additional complaints Musc Reports no additional complaints Skin/Breast Reports system reviewed and no additional complaints, except as documented Neuro Reports no additional complaints Psych Reports no additional complaints Endo Reports no additional complaints Rakesh/Lymph Reports no additional complaints Aller/Immun Reports no additional complaints Physical Exam Vital Signs: Last Vital Signs Temp 98.1 F 10/29/22 09:52 Pulse 61 10/29/22 09:52 BP 112/70 10/29/22 09:52 Pulse Ox 97 10/29/22 09:52 Oxygen Delivery Method Room Air 10/29/22 09:52 BMI result Body Mass Index 26.9 Const General: cooperative, healthy appearing, no acute distress and well developed Orientation/consciousness: patient oriented x3 HEENT Head: Yes normal to inspection Ears: hearing grossly normal bilaterally General nose exam: Normal external nose present Face and sinus: Yes normal facial exam Mouth: Normal oral and palatal mucosa present Eyes General: appearance normal, both eyes and all related structures Pupils: Equal, round and reactive pupils present EOM: EOMs intact bilaterally Chest Other: No ecchymosis of the chest wall. Tenderness to palpation of the anterior right-sided ribs. Resp Effort & Inspection: normal respiratory effort and no respiratory distress Auscultation: clear to auscultation bilaterally Cardio Rate: regular rate Rhythm: regular rhythm Heart sounds: no gallops, no murmurs and no rubs Peripheral pulses: Peripheral pulses 2+ throughout GI Inspection: No distended Palpation (GI): Soft to palpation and nontender Auscultation: normal bowel sounds Skin General skin exam: no rashes or lesions noted Neuro General: patient oriented x3 Cranial nerves: Yes CN's II-XII intact bilaterally and Yes Equal, round and reactive pupils present Gait exam (Neuro): Normal gait present Motor exam (neuro): 5/5 motor strength present throughout Extrem General: Yes normal to inspection, Yes full ROM and Yes no clubbing, cyanosis or edema Psych Appearance: grossly normal Mental Status: mental status grossly normal Assessment & Plan Assessment & Plan (1) Rib pain on right side: Code(s): R07.81 - Pleurodynia Plan: This is a 67-year-old male presenting to the office complaining of right-sided rib pain in the setting of fall/trauma. On physical examination, there is no ecchymosis of the chest wall but there is tenderness to palpation of the right ribs anteriorly. His lungs are clear to auscultation bilaterally. His vital signs are stable and patient is overall nontoxic appearing. He is safe to be discharged home. X-ray of the right ribs with chest x-ray was obtained to evaluate for rib fracture. If x-ray negative, patient likely has contusion of the right ribs. Recommend rest/activity modification, ice to the area, acetaminophen/ibuprofen for pain management as long as patient has no medical contraindications. Patient was educated on the importance of pulmonary toileting and incentive spirometry. Incentive spirometer was provided. Patient instructed to brace while coughing/sneezing. He was advised to follow-up here or proceed directly to the emergency room if he were to develop difficulty breathing, fever/chills, or worsening/persistent symptoms. Patient verbalizes understanding and he was in agreement with the plan. Orders: Orders XR ribs RT min 3V w CXR1V Today R07.81 - Pleurodynia Medications: New lidocaine 5% leave on most painful area for up to 12 hrs 1 patch topical DAILY 15 ea 0RF Coding Level of Care Code Est Pt Level 3 (67686) Diagnoses Rib pain on right side R07.81
== END 2022-10-29 10:36 | disposition home or self-care (01) ==
PROVIDERS: PCP Family Medicine; Visit Provider Physician Assistant Medical
DX: R07.81 Pleurodynia (principal)
CPT/HCPCS: 99213

== ENCOUNTER 2022-10-29 10:23 | Outpatient (REF) | payer MEDICARE, SELFPAY ==
--- NOTE | ~2022-10-29 | XR_ITS ---
EXAMINATION: XR RIBS, RIGHT CLINICAL INFORMATION: Fall COMPARISON: None available. TECHNIQUE: 3 views of the right ribs were obtained. FINDINGS: Lungs are clear. No consolidation, pneumothorax, or pleural effusion. The cardiomediastinal silhouette and pulmonary vasculature are normal. Osseous structures are unremarkable. Ribs are intact. No fractures are identified. XR/XR ribs RT min 3V w CXR1V IMPRESSION: No radiographic evidence of acute fracture.
== END 2022-10-29 10:24 | disposition home or self-care (01) ==
LOC: HO.HMGCX 10:23
PROVIDERS: PCP Family Medicine; Visit Provider Physician Assistant Medical
DX: R07.81 Pleurodynia (principal)
CPT/HCPCS: 71101

== ENCOUNTER 2023-01-06 08:03 | Outpatient (AMB) | payer MEDICARE, SELFPAY ==
[2023-01-06 08:04] VITALS: BP 140/80; PULSE 94; TEMP 37.3; O2SAT 98; BMI 27.2
--- NOTE | 2023-01-06 08:04 | MHC.OFFWIV ---
Intake Vital Signs 01/06/23 08:04 Height 6 ft 1 in Weight 206 lb 4 oz BMI 27.2 BP 140/80 H Blood Pressure Location Lt brachial Position Sitting Pulse 94 Pulse Source Pulse Oximeter Temp 99.2 F Temp Source Temporal Artery Scan Pulse Oximetry (%) 98 Intake Visit Reasons: EP, cough, congestion, body aches (masked) Intake Note: pt is here for c/o cough, congestion, and body aches Patient Tobacco Use Status: Never used Tobacco Allergies No Known Allergies Allergy (Verified 01/06/23 08:22) Medication List - Last Reconciled 01/06/23 by Burke Guerrero MD aspirin (Adult Aspirin Regimen) 81 mg PO DAILY blood pressure monitor Automatic, Digital. Dx: I10. Daily As directed, 999 days/lifetime calcium polycarbophil (FiberCon) 625 mg PO DAILY 30 days cyanocobalamin (vitamin B-12) (Vitamin B-12) 1,000 mcg PO DAILY hydrochlorothiazide 25 mg PO DAILY 90 days ibuprofen (Motrin IB) 800 mg PO Q6H lidocaine 5% 1 patch topical DAILY lisinopril (Zestril) 20 mg PO DAILY 90 days simvastatin 40 mg PO BEDTIME Do you need a note to return to daycare/school/sports/work: Yes HPI EP, cough, congestion, body aches (masked) HPI Details Patient presents for a sick visit. Reporting symptoms of sinus congestion, sore throat and difficulty swallowing. Low-grade fever. No family member is sick. No recent travel. Patient reports symptoms of malaise and fatigue. [facility] Medical History (Updated 01/06/23 @ 08:26 by Burke Guerrero MD) Upper respiratory tract infection Cough HTN (hypertension) Aortic aneurysm Osteoarthritis of right knee Right knee pain Surgical History History of inguinal hernia repair History of appendectomy H/O arthroscopic knee surgery Family History Father CHF (congestive heart failure) Mother No problems noted. 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 Current occupational exposures/hazards: No Cognitive needs: No Hearing needs: No Vision needs: No Physical Exam Vital Signs: Last Vital Signs Temp 99.2 F 01/06/23 08:04 Pulse 94 01/06/23 08:04 BP 140/80 H 01/06/23 08:04 Pulse Ox 98 01/06/23 08:04 BMI result Body Mass Index 27.2 Const General: cooperative and healthy appearing Nutritional Appearance: well nourished Orientation/consciousness: patient oriented x3 Limitations: no limitations HEENT Head: Yes normal to inspection Eyes General: appearance normal, both eyes and all related structures Neck Neck: Yes normal visual inspection Chest Chest palpation & inspection: normal palpation of entire chest wall Resp Effort & Inspection: normal respiratory effort Neuro General: patient oriented x3 Assessment & Plan Assessment & Plan (1) Upper respiratory tract infection: Code(s): J06.9 - Acute upper respiratory infection, unspecified Plan: Antibiotics ordered. Increase fluid intake. Tylenol for aches and pains. If symptoms worsen, follow-up here for a recheck. Coding Level of Care Code Est Pt Level 3 (93674) Diagnoses Upper respiratory tract infection J06.9
== END 2023-01-06 08:44 | disposition home or self-care (01) ==
PROVIDERS: PCP Family Medicine
DX: J06.9 Acute upper respiratory infection, unspecified (principal)
CPT/HCPCS: 99213

== ENCOUNTER 2023-01-06 08:59 | Outpatient (REF) | payer MEDICARE, SELFPAY ==
[2023-01-06 12:03] LABS: Influenza A PCR NEGATIVE (Negative); Influenza B PCR NEGATIVE (Negative); Resp Syncy Virus RNA Qual PCR POSITIVE (Negative); SARS COV2 PCR INHOUSE NEGATIVE (Negative)
== END 2023-01-06 09:00 | disposition home or self-care (01) ==
LOC: HO.LAB 08:59
PROVIDERS: Visit Provider Internal Medicine
DX: R43.9 Unspecified disturbances of smell and taste (principal); Z20.822 Contact with and (suspected) exposure to COVID-19
CPT/HCPCS: 0241U

== ENCOUNTER 2023-01-07 09:08 | Outpatient (AMB) | payer MEDICARE, SELFPAY ==
--- NOTE | 2023-01-07 09:12 | AM.OFFWIN_ITS ---
Intake Vital Signs 01/07/23 09:12 Height 6 ft 1 in Intake Visit Reasons: EP cough, sore throat, headache Intake Note: pt is here for c/o cough, sore throat and headache Patient Tobacco Use Status: Never used Tobacco Allergies prednisone Adverse Reaction (Mild, Verified 01/18/23 09:38) chest tightness, hard to breathe Do you need a note to return to daycare/school/sports/work: Yes HPI EP cough, sore throat, headache HPI Details Patient is a 67-year-old male who comes to the walk-in clinic complaining of headache and sinus pressure a few weeks after developing respiratory tract infection. He states that he had nasal congestion, postnasal drip and mild cough initially, and home COVID testing was negative. Subsequently he has been experiencing headache to the forehead area, as well as sinus tenderness. He denies fever or chills dizziness or weakness, nausea vomiting or diarrhea, malaise or myalgias, hearing changes or ear pain, shortness of breath or chest pain, or other significant associated symptoms PFSH Medical History Upper respiratory tract infection Cough HTN (hypertension) Aortic aneurysm Osteoarthritis of right knee Right knee pain Surgical History History of inguinal hernia repair History of appendectomy H/O arthroscopic knee surgery Family History Father CHF (congestive heart failure) Mother No problems noted. 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 Current occupational exposures/hazards: No Cognitive needs: No Hearing needs: No Vision needs: No Review of Systems Const All systems reviewed & are unremarkable except as noted in HPI and below Assessment & Plan Assessment & Plan (1) Sinusitis: Code(s): J32.9 - Chronic sinusitis, unspecified Qualifiers: Sinusitis location: frontal Chronicity: acute Recurrence: non- recurrent Qualified Code(s): J01.10 - Acute frontal sinusitis, unspecified Plan: Patient is a 67-year-old male who has had upper respiratory tract infection for the last few weeks, and now is developing symptoms consistent with acute sinu sitis. We discussed viral versus bacterial causes, and it is possible that patient symptoms are due to a viral cause as this has been ongoing, however as his forehead pressure symptoms are worsening, I did write him for a course of azithromycin to trial. He can also continue the [id number] medication, and ibuprofen pain He knows to follow up if symptoms persist or worsen or go to emergency department with worrisome symptoms Medications: New azithromycin take 500 mg today (day 1), then 250 mg for 4 days (days 2-5) PO 6 tabs 0RF Coding Level of Care Code Est Pt Level 4 (89536) Diagnoses Acute non-recurrent frontal sinusitis J01.10 Sinusitis location: frontal Chronicity: acute Recurrence: non-recurrent
== END 2023-01-07 09:36 | disposition left against medical advice (07) ==
PROVIDERS: PCP Family Medicine; Visit Provider Physician Assistant Medical
DX: J01.10 Acute frontal sinusitis, unspecified (principal)
CPT/HCPCS: 99214

== ENCOUNTER 2023-01-12 12:47 | Outpatient (AMB) | payer MEDICARE, SELFPAY ==
--- NOTE | 2023-01-12 12:53 | AM.OFFWIN_ITS ---
Intake Vital Signs 01/12/23 12:54 Height 6 ft 1 in Weight 206 lb BMI 27.2 BP 122/78 Blood Pressure Location Lt brachial Position Sitting Pulse 78 Pulse Source Pulse Oximeter Temp 98.1 F Temp Source Temporal Artery Scan Pulse Oximetry (%) 96 Oxygen Delivery Method Room Air Intake Visit Reasons: EST/ finished antibiotics, not getting better Intake Note: pt is here for c/o not relief, positive for RSV, completed antibiotics, still has chest congestion and coughing up green phlem Patient Tobacco Use Status: Never used Tobacco Allergies No Known Allergies Allergy (Verified 01/12/23 12:54) Do you need a note to return to daycare/school/sports/work: Yes HPI EST/ finished antibiotics, not getting better HPI Details 67-year-old gentleman presents today wit h ongoing productive cough and occassional shortness of breath/wheezing s/p RSV diagnosis last week. He took A zithromycin x5 days however reports he is unimproved. Denies fever however reports he has been feeling chills. [facility] Medical History Upper respiratory tract infection Cough HTN (hypertension) Aortic aneurysm Osteoarthritis of right knee Right knee pain Surgical History History of inguinal hernia repair History of appendectomy H/O arthroscopic knee surgery Family History Father CHF (congestive heart failure) Mother No problems noted. 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 Current occupational exposures/hazards: No Cognitive needs: No Hearing needs: No Vision needs: No Review of Systems Const All systems reviewed & are unremarkable except as noted in HPI and below Physical Exam Vital Signs: Last Vital Signs Temp 98.1 F 01/12/23 12:54 Pulse 78 01/12/23 12:54 BP 122/78 01/12/23 12:54 Pulse Ox 96 01/12/23 12:54 Oxygen Delivery Method Room Air 01/12/23 12:54 BMI result Body Mass Index 27.2 Const General: cooperative and no acute distress HEENT Head: Yes normal to inspection Ears: hearing grossly normal bilaterally General nose exam: Normal external nose present Face and sinus: Yes normal facial exam Mouth: Normal oral and palatal mucosa present Resp Effort & Inspection: Actively coughing Quality: actively coughing Auscultation: clear to auscultation bilaterally and wheezes upper bilaterally Cardio Jugular venous distension: no JVD Palpation: normal PMI Rate: regular rate Rhythm: regular rhythm Skin General skin exam: no rashes or lesions noted Extrem General: Yes capillary refill normal and Yes no clubbing, cyanosis or edema Psych Appearance: grossly normal Mental Status: mental status grossly normal Speech and movement: Normal speech and movement present Assessment & Plan Assessment & Plan (1) RSV (acute bronchiolitis due to respiratory syncytial virus): Code(s): J21.0 - Acute bronchiolitis due to respiratory syncytial virus Plan: Will start patient on a short course of prednisone and also on augmentin. Will also prescribe an albuterol inhaler prn for wheezing/shortness of breath. Reviewed indications, use, possible side effects of all medications. Advised patient to return to the clinic if he does not improve with treatment or if symptoms worsen. He verbalizes understanding and agrees to plan. Prescriptions printed per patient's request instead of electronic transmission. Medications: New albuterol sulfate 90 mcg/actuation 1 inh inhalation QID PRN 6.7 grams 0RF shortness of breath or wheezing J21.0 - Acute bronchiolitis due to respiratory syncytial virus prednisone 20 mg PO BID 5 days 10 tabs 0RF J21.0 - Acute bronchiolitis due to respiratory syncytial virus amoxicillin-pot clavulanate 875-125 mg 1 tab PO BID 7 days 14 tabs 0RF J21.0 - Acute bronchiolitis due to respiratory syncytial virus Coding Level of Care Code Est Pt Level 3 (43084) Diagnoses RSV (acute bronchiolitis due to respiratory syncytial virus) J21.0
[2023-01-12 12:54] VITALS: BP 122/78; PULSE 78; TEMP 36.7; O2SAT 96; BMI 27.2
== END 2023-01-12 13:35 | disposition home or self-care (01) ==
PROVIDERS: PCP Family Medicine; Visit Provider Nurse Practitioner Family
DX: J21.0 Acute bronchiolitis due to respiratory syncytial virus (principal)
CPT/HCPCS: 99213

== ENCOUNTER 2023-01-18 09:30 | Outpatient (AMB) | payer MEDICARE, SELFPAY ==
[2023-01-18 09:33] VITALS: BP 138/80; PULSE 73; TEMP 36.5; O2SAT 96; BMI 27.7
--- NOTE | 2023-01-18 09:33 | MHC.PC.OV ---
Vital Signs 01/18/23 09:33 Height 6 ft 1 in Weight 210 lb 2 oz BMI 27.7 BP 138/80 Blood Pressure Location Lt brachial Position Sitting Pulse 73 Pulse Source Pulse Oximeter Temp 97.7 F Temp Source Oral Pulse Oximetry (%) 96 Oxygen Delivery Method Room Air Intake Visit Reasons: f/u hypertension Intake Note: Patient is here for follow up on hypertension. Patient states he is still having symptoms of RSV, still taking Amoxicillin for it. Allergies prednisone Adverse Reaction (Mild, Verified 01/18/23 09:38) chest tightness, hard to breathe Tobacco use date assessed: 01/18/23 Fall risk assessment: No Falls in past year Last assessed Fall Risk: 01/18/23 HPI f/u hypertension HPI Details 67 y/o male presents to f/u hypertension. Recent RSV and had been started on augmentin and prednisone. Pt notes he feels minimally improved. Blood pressure today 138/80. He is on lisinopril 20mg and hydrochlorothiazide 25mg daily. Pt reports R knee pain that has been ongoing all summer. He reports ibuprofen and tylenol provides no relief. Pt questions whether a cortisone shot could help. He has not had physical therapy yet. [facility] Medical History Upper respiratory tract infection Cough HTN (hypertension) Aortic aneurysm Osteoarthritis of right knee Right knee pain Surgical History History of inguinal hernia repair History of appendectomy H/O arthroscopic knee surgery Family History Father CHF (congestive heart failure) Mother No problems noted. 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 Tyler Johnson, Orly Parker, Ankit Banda and colleagues, with an educational simone from [employer]. Review of Systems Const Denies chills, Denies fatigue, Denies fever(s), Denies headache(s) and Denies weakness ENT Denies dizziness and Denies headache(s) Card Denies chest pain, Denies lightheadedness, Denies dyspnea and Denies other (Palpitations) Resp Denies cough, Denies dyspnea, Denies wheezing and Denies other ( shortness of breath) Musc Denies numbness and Denies tingling Neuro Denies dizziness, Denies headache(s), Denies numbness, Denies tingling, Denies paresthesias and Denies weakness Psych Denies anxiety and Denies depression Endo Denies fatigue Aller/Immun Denies wheezing Physical exam (Primary Care) Vital Signs: Last Vital Signs Temp 97.7 F 01/18/23 09:33 Pulse 73 01/18/23 09:33 BP 138/80 01/18/23 09:33 Pulse Ox 96 01/18/23 09:33 Oxygen Delivery Method Room Air 01/18/23 09:33 BMI result Body Mass Index 27.7 Tobacco/Smoking Status: Tobacco use Status Tobacco use date assessed 01/18/23 01/18/23 09:42 Patient Tobacco Use Status Never used Tobacco 01/18/23 09:35 e-Cigarette/Vaping Use Never Used 01/18/23 09:35 Thrive Assessment: Date of Thrive Assessment Date Thrive assessed 05/31/21 01/18/23 09:35 Const General: no acute distress and well developed Nutritional Appearance: well nourished Orientation/consciousness: patient oriented x3 HENMT Head: Yes normocephalic and Yes atraumatic Eyes General: appearance normal, both eyes and all related structures Pupils: Equal, round and reactive pupils present EOM: EOMs intact bilaterally Resp Other: Coarse breath sounds Effort & Inspection: normal respiratory effort Auscultation: clear to auscultation bilaterally Cardio Rate: regular rate Rhythm: regular rhythm Heart sounds: S1 normal heart sound present, S2 normal heart sound present, no gallops, no murmurs and no rubs Neuro General: patient oriented x3 and gait normal Cranial nerves: Yes Equal, round and reactive pupils present Psych Affect: normal affect Assessment and Plan Assessment & Plan (1) Essential hypertension: Comment: Blood pressure goal is less than 120/70 due to aortic aneurysm Code(s): I10 - Essential (primary) hypertension Plan: Blood?pressure?is?a?little?above?goal?of?less?than?120/70. Patient?recently?diagnosed?with?RSV Would?expect?it?will?resolve For?now,?continue?current?medication?regimen (2) Aortic aneurysm: Comment: Blood pressure goal is less than 120/70 due to aortic aneurysm Code(s): I71.9 - Aortic aneurysm of unspecified site, without rupture Plan: Stable (3) Upper respiratory tract infection: Code(s): J06.9 - Acute upper respiratory infection, unspecified Plan: Recent?RSV?infection?and?patient?was?given?antibiotics?to?cover?for?possible?pneumonia Almost?finished?with?2nd?course?of?antibiotics. Lungs?are?clear.??SaO2?is?96%?however?which?is?a?little?below?his?normal?range. Expect?this?is?secondary?to?recent?viral?infection. Patient?requests?repeat?COVID/flu/RSV?testing - repeated.??We?discussed?that?RSV?may?still?return?positive?but?this?does?not?mean?has?active?infection?any?longer. Likely?will?gradually?improve (4) Right knee pain: Code(s): M25.561 - Pain in right knee Plan: Right?knee?pain?and?osteoarthritis.??I?suspect?he?has?some?tendinous?injury?and?strain?however. Advised?physical?therapy?but?patient?wants?referral?back?to?ortho Referred?to?Ortho Orders: Orders SARS-CoV2/FLU/RSV Today J06.9 - Acute upper respiratory infection, unspecified XR knee LT 3V Today M25.561 - Pain in right knee Referrals Orthopedics Referral M25.561 - Pain in right knee Coding Level of Care Code Est Pt Level 4 (59965) Diagnoses Essential hypertension I10 Aortic aneurysm I71.9 Upper respiratory tract infection J06.9 Right knee pain M25.561
== END 2023-01-18 10:02 | disposition home or self-care (01) ==
PROVIDERS: PCP Family Medicine; Visit Provider Family Medicine
DX: I10 Essential (primary) hypertension (principal); I71.9 Aortic aneurysm of unspecified site, without rupture; J06.9 Acute upper respiratory infection, unspecified; M25.561 Pain in right knee
CPT/HCPCS: 99214

== ENCOUNTER 2023-01-18 15:11 | Outpatient (REF) | payer MEDICARE, SELFPAY ==
[2023-01-18 15:57] LABS: Influenza A PCR NEGATIVE (Negative); Influenza B PCR NEGATIVE (Negative); Resp Syncy Virus RNA Qual PCR NEGATIVE (Negative); SARS COV2 PCR INHOUSE NEGATIVE (Negative)
== END 2023-01-18 15:12 | disposition home or self-care (01) ==
LOC: HO.LNP 15:11
PROVIDERS: Visit Provider Family Medicine
DX: J06.9 Acute upper respiratory infection, unspecified (principal); Z11.52 Encounter for screening for COVID-19
CPT/HCPCS: 0241U

== ENCOUNTER 2023-04-19 08:20 | Outpatient (AMB) | payer MEDICARE, SELFPAY ==
--- NOTE | 2023-04-19 08:23 | A.OFFPC_ITS ---
Vital Signs 04/19/23 08:24 Height 6 ft 1 in Weight 210 lb BMI 27.7 BP 118/72 Blood Pressure Location Lt brachial Position Sitting Pulse 75 Pulse Source Pulse Oximeter Pulse Oximetry (%) 97 Oxygen Delivery Method Room Air Intake Visit Reasons: f/u hypertension and chronic conditions Intake Note: Pt presents to the office today for a f/u for hypertension and chronic conditio ns. Allergies prednisone Adverse Reaction (Mild, Verified 04/19/23 08:26) chest tightness, hard to breathe Tobacco use date assessed: 04/19/23 Dental Screening Dental Screen Date: 04/19/23 Did you have a dental visit in the last 12 months?: No Did you have a dental problem in the last 6 months where you did not have access to dental care?: No Was dental information given to patient?: Patient has dentist HPI f/u hypertension and chronic conditions HPI Details 68 y/o male presents to f/u hypertension and chronic conditions. Hx of aortic aneurysm. Blood pressure today 118/72. He is on lisinopril 20mg, hydrochlorothiazide 25mg daily. He continues to follow up with Cardiology. Pt reports ongoing R knee pain. [facility] Medical History Upper respiratory tract infection Cough HTN (hypertension) Aortic aneurysm Osteoarthritis of right knee Right knee pain Surgical History History of inguinal hernia repair History of appendectomy H/O arthroscopic knee surgery Family History Father CHF (congestive heart failure) Mother No problems noted. 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 Current occupational exposures/hazards: No Cognitive needs: No Hearing needs: No Vision needs: No Questionnaire PHQ-9 Over the last 2 weeks, how often have you been bothered by any of the following problems? 1. Little interest or pleasure in doing things: not at all 2. Feeling down, depressed, or hopeless: not at all 3. Trouble falling or staying asleep, or sleeping too much: not at all 4. Feeling tired or having little energy: not at all 5. Poor appetite or overeating: not at all 6. Feeling bad about yourself - or that you are a failure or have let yourself o r your family down: not at all 7. Trouble concentrating on things, such as reading the newspaper or watching television: not at all 8. Moving or speaking so slowly that other people could have noticed. Or the opposite - being so fidgety or restless that you have been moving around a lot more than usual: not at all 9. Thoughts that you would be better off or of hurting yourself in some way: not at all Total score: 0 Source: Developed by Drs. Tyler Johnson, Orly Parker, Ankit Banda and colleagues, with an educational simone from [employer]. Thrive Questionnaire Date Thrive assessed: 04/19/23 I am a: Patient What is your living situation today?: I have a steady place to live Within the past 12 months, did the food you bought not last and you didn't have the money to get more?: Never true Within the past 12 months, did you worry whether your food would run out before you got money to buy more?: Never true Do you have trouble paying for medicines?: No Do you have trouble getting transportation to medical appointments?: No Do you have trouble paying your heating and electricity bill?: No Do you have trouble taking care of your child, family member or friend?: No Do you have trouble with day-to-day activities such as bathing, preparing meals, shopping, managing finances, etc.?: No Are you currently unemployed and looking for a job?: No Are you interested in more education?: No THRIVE Score: 0 AUDIT C Alcohol Use Questionnaire (AUDIT-C) 1. How often do you have a drink containing alcohol?: Never 3. How often do you have six or more drinks on one occasion?: Never Total Score: 0 KEITH-7 AMB Questionnaire KEITH-7 Date KEITH - 7 assessed: 04/19/23 Feeling nervous, anxious, or on edge: 0 = Not at all Not being able to stop or control worryin = Not at all Worrying too much about different things: 0 = Not at all Trouble relaxin = Not at all Being so restless that it is hard to sit still: 0 = Not at all Becoming easily annoyed or irritable: 0 = Not at all Feeling afraid as if something awful might happen: 0 = Not at all Total KEITH-7 score (0-4 normal; 5-9 mild; 10-14 moderate; 15-21 severe): 0 Source: Developed by Drs. Tyler Johnson, Orly Parker, Ankit Banda and colleagues, with an educational simone from [employer]. Review of Systems Const Denies chills, Denies fatigue, Denies fever(s), Denies headache(s) and Denies weakness ENT Denies dizziness and Denies headache(s) Card Denies chest pain, Denies lightheadedness, Denies dyspnea and Denies other (Palpitations) Resp Denies cough, Denies dyspnea, Denies wheezing and Denies other ( shortness of breath) Musc Details: R knee pain Denies numbness and Denies tingling Neuro Denies dizziness, Denies headache(s), Denies numbness, Denies tingling, Denies paresthesias and Denies weakness Psych Denies anxiety and Denies depression Endo Denies fatigue Aller/Immun Denies wheezing Physical exam (Primary Care) Vital Signs: Last Vital Signs Pulse 75 04/19/23 08:24 BP 118/72 04/19/23 08:24 Pulse Ox 97 04/19/23 08:24 Oxygen Delivery Method Room Air 04/19/23 08:24 BMI result Body Mass Index 27.7 Tobacco/Smoking Status: Tobacco use Status Tobacco use date assessed 04/19/23 04/19/23 08:29 Patient Tobacco Use Status Never used Tobacco 04/19/23 08:29 e-Cigarette/Vaping Use Never Used 04/19/23 08:29 PHQ-9: PHQ-9 Score PHQ-9: Total score 0 04/19/23 08:29 Thrive Assessment: Date of Thrive Assessment Date Thrive assessed 04/19/23 04/19/23 08:29 Const General: no acute distress and well developed Nutritional Appearance: well nourished Orientation/consciousness: patient oriented x3 [facility] Head: Yes normocephalic and Yes atraumatic Eyes General: appearance normal, both eyes and all related structures Pupils: Equal, round and reactive pupils present EOM: EOMs intact bilaterally Resp Effort & Inspection: normal respiratory effort Auscultation: clear to auscultation bilaterally Cardio Rate: regular rate Rhythm: regular rhythm Heart sounds: S1 normal heart sound present, S2 normal heart sound present, no gallops, no murmurs and no rubs Neuro General: patient oriented x3 and gait normal Cranial nerves: Yes Equal, round and reactive pupils present Psych Affect: normal affect Assessment and Plan Assessment & Plan (1) Essential hypertension: Comment: Blood pressure goal is less than 120/70 due to aortic aneurysm Code(s): I10 - Essential (primary) hypertension Plan: Blood?pr essure?is?fairly?well?controlled.??Goal?is?recommended?at?120/70?due?to?aortic?a neurysm Continue?current?medications (2) Aortic aneurysm: Comment: Blood pressure goal is less than 120/70 due to aortic aneurysm Code(s): I71.9 - Aortic aneurysm of unspecified site, without rupture Plan: Recently?saw?his?junior analyst?and?aneurysm?is?stable Follow-up?with?Cardiology?as?recommended (3) Right knee pain: Code(s): M25.561 - Pain in right knee Plan: Ongoing?right?knee?pain. Had?referred?him?to?Orthopedics?but?he?said?he?was?sick ?at?the?time?when?he?would?have?gone?to?an?appointment. Refreshed?x- ray?for?right?knee?and?advised?patient?to?call?or?though?for?another?appointment . Orders: Orders Comprehensive [place]. Panel Fast Today Z00.00 - Encounter for general adult medical examination without abnormal findings Microalbumin, Random (w Creat) Today I10 - Essential (primary) hypertension UA and rflx microscopic Today Z00.00 - Encounter for general adult medical ex amination without abnormal findings XR knee RT 3V Today M25.561 - Pain in right knee Complete Blood Count Auto Diff Today Z00.00 - Encounter for general adult medical examination without abnormal findings Prostate Specific Antigen Scr Today Z12.5 - Encounter for screening for malignant neoplasm of prostate Lipid Panel Today Z00.00 - Encounter for general adult medical examination without abnormal findings TSH reflex Free T4 Today Z00.00 - Encounter for general adult medical examination without abnormal findings Medications: Refilled lisinopril (Zestril) 20 mg PO DAILY 90 tabs 2RF htn 90 days hydrochlorothiazide 25 mg PO DAILY 90 tabs 2RF htn 90 days Coding Level of Care Code Est Pt Level 3 (39626) Diagnoses Essential hypertension I10 Aortic aneurysm I71.9 Right knee pain M25.561
[2023-04-19 08:24] VITALS: BP 118/72; PULSE 75; O2SAT 97; BMI 27.7
== END 2023-04-19 08:57 | disposition home or self-care (01) ==
PROVIDERS: PCP Family Medicine; Visit Provider Family Medicine
DX: I10 Essential (primary) hypertension (principal); I71.9 Aortic aneurysm of unspecified site, without rupture; M25.561 Pain in right knee
CPT/HCPCS: 99213

== ENCOUNTER 2023-04-19 08:56 | Outpatient (REF) | payer MEDICARE, SELFPAY ==
[2023-04-19 11:24] LABS: MANUAL DIFF FLAG NO
[2023-04-19 11:29] LABS: Appearance Urine Clear; Color Urine Yellow; Glucose Urine UA Negative (Negative); Leukocyte Esterase Urine Negative (Negative); Nitrite Urine Negative (Negative); PH 5.5 (5.0-9.0); Urine Blood Negative (Negative); Urine Ketones Negative (Negative); Urine Protein Negative (Neg-Trace)
[2023-04-19 11:42] LABS: Basophils Percent Auto 0.9 % (0-2); Eosinophils Absolute Auto 0.3 X10*3/uL (0.0-0.4); Eosinophils Percent Auto 5.9 % (0-4); Hematocrit 43.7 % (42.0-52.0); Hemoglobin 15.6 g/dl (14.0-18.0); Imm Gran Abs Auto 0.01 X10*3/uL (0.00-0.03); Imm Gran Pct Auto 0.2 % (0.0-0.4); Lymphocytes Absolute Auto 1.2 X10*3/uL (1.2-4.9); Lymphocytes Percent Auto 26.5 % (20-40); Mean Corpuscular HGB Conc 35.7 g/dl (31.0-36.0); Mean Corpuscular Hemoglobin 32.9 pg (27.0-33.0); Mean Corpuscular Volume 92.2 fL (80.0-98.0); Mean Platelet Volume 9.8 fL (9.4-12.4); Monocytes Absolute Auto 0.6 X10*3/uL (0.1-1.2); Monocytes Percent Auto 12.8 % (2-11); Neutrophils Absolute Auto 2.5 x10*3/uL (2.0-8.3); Neutrophils Percent Auto 53.7 % (45-73); Platelet Count 255 X10*3/uL (160-400); Red Blood Count 4.74 X10*6/uL (4.60-5.80); White Blood Count 4.6 X10*3/uL (4.8-10.8)
[2023-04-19 12:31] LABS: Creatinine Urine 139.41 mg/dL; Microalbum/Creatinine Ratio Ur 5.7 ug/mg cr (<30)
[2023-04-19 12:40] LABS: Prostate Specific Antigen Scr 0.38 ng/mL (<0.05-4.0)
[2023-04-19 12:43] LABS: Alanine Aminotransferase 25 U/L (0-40); Albumin Level 4.8 g/dL (3.5-5.0); Alkaline Phosphatase 49 U/L (39-117); Anion Gap 10 (12-20); Aspartate Amino Transferase 22 U/L (5-37); Blood Urea Nitrogen 17 mg/dL (9-16); Calcium 9.6 mg/dL (8.4-10.2); Carbon Dioxide 28 mmol/L (22-29); Chloride 105 mmol/L (96-108); Cholesterol 157 mg/dL (<200); Estimated Glomerular Filt Rate > 60; Glucose Fasting 91 mg/dL (60-99); HDL Cholesterol 47 mg/dL (>40); LDL Cholesterol Calculated 94 mg/dL (<100); Potassium 4.2 mmol/L (3.3-5.1); Sodium 139 mmol/L (135-145); TSH reflex Free T4 3.19 uIU/mL (0.32-4.0); Total Protein 7.9 g/dL (6.5-8.0); Triglycerides 82 mg/dL (<150)
== END 2023-04-19 08:57 | disposition home or self-care (01) ==
LOC: HO.WFDLDS 08:56
PROVIDERS: Visit Provider Family Medicine
DX: Z13.89 Encounter for screening for other disorder (principal)
CPT/HCPCS: 36415; 80053; 80061; 81003; 82043; 82570; 84153; 84443; 85025

== ENCOUNTER 2023-04-19 10:07 | Outpatient (REF) | payer MEDICARE, SELFPAY ==
--- NOTE | ~2023-04-19 | XR_ITS ---
EXAMINATION: XR KNEE, RIGHT CLINICAL INFORMATION: Pain in the right knee COMPARISON: 01/02/2020 TECHNIQUE: Four views of the right knee. FINDINGS: There is no significant interval change in appearance of changes of osteoarthritis of left knee joint with narrowing cough medial compartment of left knee joint, mild marginal spurring. There is new focus of soft tissue calcification adjacent to medial tibial condyle measured approximately 0.6 cm, suggestive for tendinosis calcification versus early Leif-Stieda the complex. There is mild enthesopathy and spurring of the patella with no evidence of joint is effusion. XR/XR knee RT 3V IMPRESSION: 1. Changes of osteoarthritis of the right knee joint. 2. Calcific tendinosis versus early Leif-Stieda the right knee joint.
== END 2023-04-19 10:08 | disposition home or self-care (01) ==
LOC: HO.HMGCX 10:07
PROVIDERS: PCP Family Medicine; Visit Provider Family Medicine
DX: Z00.00 Encounter for general adult medical examination without abnormal findings (principal); M25.561 Pain in right knee; I10 Essential (primary) hypertension; Z12.5 Encounter for screening for malignant neoplasm of prostate
CPT/HCPCS: 36415; 73562; 80053; 80061; 81003; 82043; 82570; 84153; 84443; 85025

== ENCOUNTER → 2023-06-13 16:55 | Outpatient (AMB) | payer MEDICARE, SELFPAY ==
--- NOTE | 2023-06-13 16:47 | A.OFFPC_ITS ---
Intake Visit Reasons: xray results 04/19 Intake Note: Patient is following up on xray since 04/19. He states he is still not feeling well. Allergies prednisone Adverse Reaction (Mild, Verified 06/13/23 16:50) chest tightness, hard to breathe Tobacco use date assessed: 06/13/23 Fall risk assessment: No Falls in past year Last assessed Fall Risk: 06/13/23 Dental Screening Dental Screen Date: 04/19/23 HPI xray results 04/19 HPI Details 68 y/o male presents to f/u knee x-ray r esult 04/19/23. Knee x-ray shows changes of osteoarthritis of the R knee joint. Calcific tendinosis vs early mali-stieda of the R knee joint. [facility] Medical History Upper respiratory tract infection Cough HTN (hypertension) Aortic aneurysm Osteoarthritis of right knee Right knee pain Surgical History History of inguinal hernia repair History of appendectomy H/O arthroscopic knee surgery Family History Father CHF (congestive heart failure) Mother No problems noted. 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: [employer]- left handed Current occupational exposures/hazards: No Cognitive needs: No Hearing needs: No Vision needs: No Questionnaire Thrive Questionnaire Date Thrive assessed: 04/19/23 KEITH-7 AMB Questionnaire KEITH-7 Date KEITH - 7 assessed: 04/19/23 Source: Developed by Drs. Tyler Johnson, Orly Parker, Ankit Banda and colleagues, with an educational simone from [employer]. Review of Systems Const Denies chills, Denies fatigue, Denies fever(s), Denies headache(s) and Denies weakness ENT Denies dizziness and Denies headache(s) Card Denies dyspnea Resp Denies cough, Denies dyspnea, Denies wheezing and Denies other (shortness of breath) Musc Denies numbness and Denies tingling Neuro Denies dizziness, Denies headache(s), Denies numbness, Denies tingling and Denies weakness Psych Denies anxiety and Denies depression Endo Denies fatigue Aller/Immun Denies wheezing Physical exam (Primary Care) Tobacco/Smoking Status: Tobacco use Status Tobacco use date assessed 06/13/23 06/13/23 16:52 Patient Tobacco Use Status Never used Tobacco 06/13/23 16:52 e-Cigarette/Vaping Use Never Used 06/13/23 16:52 Thrive Assessment: Date of Thrive Assessment Date Thrive assessed 04/19/23 06/13/23 16:52 Telehealth Telehealth Location of provider rendering services: practice address Location of patient: address on file Patient Identification confirmed using: Name, : Yes Telehealth method: voice only Patient verbally consented to treatment: Yes Patient verbally consented to billing insurance company: Yes Patient informed of any privacy concerns related to visit: Yes Minutes spent on Phone/Video with Pt.: 7 Assessment and Plan Assessment & Plan (1) Osteoarthritis of right knee: Code(s): M17.11 - Unilateral primary osteoarthritis, right knee Plan: Osteoarthritis?of?the?right?knee?along?with?new?calcifications?of?tendons/ligame nt. Referred?to?orthopedic Use?ibuprofen,?ice?and?heat Coding Level of Care Code Tele Est Pt Level 2 (06733) Diagnoses Osteoarthritis of right knee M17.11
== END ==
PROVIDERS: PCP Family Medicine; Visit Provider Family Medicine
DX: M17.11 Unilateral primary osteoarthritis, right knee (principal)
CPT/HCPCS: 99441

== ENCOUNTER 2023-08-10 06:58 | Emergency (ER) | payer MEDICARE, SELFPAY ==
--- NOTE | ~2023-08-10 | CT_ITS ---
EXAMINATION: CT ABDOMEN AND PELVIS WITH CONTRAST CLINICAL INFORMATION: Abdominal pain with history of aortic aneurysm COMPARISON: CT PE study 05/29/2021 TECHNIQUE: Multidetector volumetric images were obtained from the superior aspect of the liver through the pubic symphysis following administration 85 mL of Omnipaque 350 intravenous contrast. Sagittal and coronal reformatted images were obtained on the technologist's workstation. Oral contrast: No This CT examination was performed using dose optimization techniques as appropriate, variously including the following: *Automated exposure control *Adjustment of mA and/or kV according to patient size (this includes techniques or standardized protocols for targeted exams where dose is matched to indication/reason for exam; i.e. extremities or head) *Use of iterative reconstruction technique DLP: 556 mGy-cm FINDINGS: LUNG BASES: The visualized lung bases are unremarkable. LIVER, GALLBLADDER, AND BILIARY TREE: The liver is normal in size, shape, and attenuation. No focal hepatic lesion or biliary ductal dilatation is present. The gallbladder is unremarkable with no evidence of radiopaque gallstones, gallbladder wall thickening, or obvious pericholecystic inflammatory changes. PANCREAS: Unremarkable. SPLEEN: Spleen is mildly enlarged at 13.1 cm. ADRENAL GLANDS: Unremarkable. KIDNEYS AND URETERS: The kidneys are normal in size, shape, and attenuation. No hydronephrosis, hydroureter, or calculi seen. No perinephric stranding. BLADDER: Unremarkable. GASTROINTESTINAL TRACT: A small hiatal hernia is present. The small and large bowel are unremarkable aside from the presence of colonic diverticula without diverticulitis. The appendix is not seen but there is no evidence of appendicitis evidence of appendicitis. ABDOMINAL WALL: Bilateral small inguinal hernias seen containing fat. LYMPH NODES: Some small lymph nodes are present in the gastrohepatic ligament but there is no retroperitoneal lymphadenopathy seen. VASCULAR: Calcific atherosclerotic changes are present in the aorta and iliofemoral vessels. There is no evidence of an abdominal aortic aneurysm. Maximum diameter of the infrarenal aorta is only 2.5 cm. PELVIC VISCERA: There is mild BPH. Seminal vesicles appear normal. OSSEOUS STRUCTURES: Degenerative changes are seen in the spine. No bony destructive lesions CT/CT abdomen pelvis w IV con IMPRESSION: 1. A cause for the patient's abdominal pain has not been found. 2. An abdominal aortic aneurysm is not detected. 3. Incidental note made of mild splenomegaly, colonic diverticulosis without diverticulitis, small hiatal hernia and mild BPH. Fleischner guidelines were followed.
[2023-08-10 07:00] VITALS: BP 128/79; PULSE 87; RESP 19; TEMP 36.6; O2SAT 99; BMI 27.1
[2023-08-10 07:15] LABS: MANUAL DIFF FLAG NO
[2023-08-10 07:19] LABS: Basophils Percent Auto 0.3 % (0-2); Eosinophils Absolute Auto 0.1 X10*3/uL (0.0-0.4); Eosinophils Percent Auto 2.2 % (0-4); Hematocrit 39.7 % (42.0-52.0); Hemoglobin 14.2 g/dl (14.0-18.0); Imm Gran Abs Auto 0.02 X10*3/uL (0.00-0.03); Imm Gran Pct Auto 0.3 % (0.0-0.4); Lymphocytes Absolute Auto 0.3 X10*3/uL (1.2-4.9); Lymphocytes Percent Auto 4.6 % (20-40); Mean Corpuscular HGB Conc 35.8 g/dl (31.0-36.0); Mean Corpuscular Hemoglobin 33.1 pg (27.0-33.0); Mean Corpuscular Volume 92.5 fL (80.0-98.0); Mean Platelet Volume 9.4 fL (9.4-12.4); Monocytes Absolute Auto 0.5 X10*3/uL (0.1-1.2); Monocytes Percent Auto 7.8 % (2-11); Neutrophils Percent Auto 84.8 % (45-73); Platelet Count 215 X10*3/uL (160-400); Red Blood Count 4.29 X10*6/uL (4.60-5.80); Red Cell Distribution Width 11.9 % (11.0-16.0); White Blood Count 5.9 X10*3/uL (4.8-10.8)
[2023-08-10 07:32] LABS: Alanine Aminotransferase 29 U/L (0-40); Albumin Level 4.5 g/dL (3.5-5.0); Alkaline Phosphatase 51 U/L (39-117); Anion Gap 12 (12-20); Aspartate Amino Transferase 30 U/L (5-37); Bilirubin Direct 0.3 mg/dL (0.0-0.5); Bilirubin Total 0.7 mg/dL (0.0-1.0); Blood Urea Nitrogen 36 mg/dL (9-16); Calcium 9.4 mg/dL (8.4-10.2); Carbon Dioxide 24 mmol/L (22-29); Chloride 107 mmol/L (96-108); Creatinine Clr Calc Pharmacy 84.8; Estimated Glomerular Filt Rate > 60; Glucose Random 113 mg/dL (60-115); Lipase 40 U/L (8-78); Potassium 4.2 mmol/L (3.3-5.1); Sodium 139 mmol/L (135-145); Total Protein 7.4 g/dL (6.5-8.0)
--- NOTE | 2023-08-10 07:50 | PC.NURSE ---
patient a&ox3, [place], pt c/o 12/13 abd for 2 days, + bs all quadrants, - tenderness upon palp, call gold within reach will contniue to monitor
--- NOTE | 2023-08-10 08:32 | ED.ABDPAIN ---
HPI - Abdominal Pain General Chief Complaint: Abdominal Pain Stated Complaint: stomach ache/diarrhea/no energy Time Seen by Provider: 08/10/23 08:30 Source: patient Mode of arrival: ambulatory Limitations: no limitations History of Present Illness ED Provider: Dr. Erick Nicholas HPI narrative: 68-year-old male with past history of appendectomy arthroscopic knee surgery aortic aneurysm hypertension osteoarthritis of the right knee pulmonary fibrosis presents emergency department complaining of abdominal pain nausea vomiting and diarrhea for past 2 days he states he also has no energy he denies any falls or injuries he denies any sick contacts Related Data Home Medications ?Medication ?Instructions ?Recorded ?Confirmed aspirin 81 mg tablet,delayed 81 mg PO DAILY 01/02/20 09/28/22 release (Adult Aspirin Regimen) ibuprofen 200 mg capsule (Motrin 800 mg PO Q6H 10/29/22 IB) Previous Rx's ?Medication ?Instructions ?Recorded blood pressure monitor #1 ea 05/31/21 cyanocobalamin (vitamin B-12) 1,000 mcg PO DAILY #90 tabs 11/09/21 1,000 mcg tablet (Vitamin B-12) lidocaine 5 % topical patch 1 patch topical DAILY #15 ea 10/29/22 albuterol sulfate 90 mcg/actuation 1 inh inhalation QID PRN shortness 01/12/23 aerosol inhaler of breath or wheezing #6.7 grams hydrochlorothiazide 25 mg tablet 25 mg PO DAILY htn 90 days #90 tabs 04/19/23 lisinopril 20 mg tablet (Zestril) 20 mg PO DAILY htn 90 days #90 tabs 04/19/23 simvastatin 40 mg tablet 40 mg PO BEDTIME #90 tabs 05/18/23 famotidine 20 mg tablet (Pepcid) 20 mg PO BID PRN abdominal 08/10/23 discomfort #60 tabs ondansetron 4 mg disintegrating 4 mg PO Q6H #14 tabs 08/10/23 tablet Allergies Allergy/AdvReac Type Severity Reaction Status Date / Time prednisone AdvReac Mild chest Verified 08/10/23 07:01 tightness, hard to breathe PMFSH Past Medical History Medical History Upper respiratory tract infection Cough HTN (hypertension) Aortic aneurysm Osteoarthritis of right knee Right knee pain Surgical History History of inguinal hernia repair History of appendectomy H/O arthroscopic knee surgery Family History Family History Father CHF (congestive heart failure) Mother No problems noted. Brother Pulmonary fibrosis Brother Stomach cancer Brother MVA (motor vehicle accident) Social History Social History Household Members: Family Household Members Other:: mother Housing: House Alcohol intake: never Patient Tobacco Use Status: Never used Tobacco Smoked in Last 30 Days: No e-Cigarette/Vaping Use: Never Used Second Hand Smoke Exposure: No Any prior treatment program specific to substance use: No Advance Directives: No Advance Directives Information Provided: No service: No Current occupational status: employed Current occupation: [employer]- left handed Current occupational exposures/hazards: No Cognitive needs: No Hearing needs: No Vision needs: No Physical Exam ED Vital Signs: Vital Signs - 24 hr 08/10/23 07:00 Temperature 98 F Pulse Rate 87 Respiratory Rate 19 Blood Pressure 128/79 Pulse Oximetry 99 Oxygen Delivery Method Room Air BMI result Body Mass Index 27.1 Course Course Course Narrative: Patient was ordered morphine but did not want any narcotics. Patient CT does not show anything acute labs were unremarkable I do think this is likely an issue his bowels and will need follow-up with gastroenterology I did explain to the patient he has happy with the plan to be discharged. Medical Decision Making Medical Decision Making [facility] Narrative: I will start the patient fluids morphine Zofran and sent the patient for a CT scan Differential Diagnosis Differential Diagnoses: The differential diagnosis associated with the presentation includes Colitis gastroenteritis acute surgical abdomen cholelithiasis cholecystitis choledocholithiasis cholangitis dehydration electrolyte abnormality problems related to aortic aneurysm pancreatitis Admission/Observation Consideration of admission/observation: Escalation of care including admission/observation considered Lab Data [facility] Lab Attestation statement: I reviewed the patient's lab results. 08/10/23 07:11 08/10/23 07:11 Labs: Lab Results 08/10/23 Range/Units 07:11 WBC 5.9 (4.8-10.8) X10*3/uL RBC 4.29 L (4.60-5.80) X10*6/uL Hgb 14.2 (14.0-18.0) g/dl Hct 39.7 L (42.0-52.0) % MCV 92.5 (80.0-98.0) fL MCH 33.1 H (27.0-33.0) pg MCHC 35.8 (31.0-36.0) g/dl RDW 11.9 (11.0-16.0) % Plt Count 215 (160-400) X10*3/uL MPV 9.4 (9.4-12.4) fL Immature Gran % (Auto) 0.3 (0.0-0.4) % Neut % (Auto) 84.8 H (45-73) % Lymph % (Auto) 4.6 L (20-40) % Garza % (Auto) 7.8 (2-11) % Eos % (Auto) 2.2 (0-4) % Baso % (Auto) 0.3 (0-2) % Lymph # (Auto) 0.3 L (1.2-4.9) X10*3/uL Garza # (Auto) 0.5 (0.1-1.2) X10*3/uL Eos # (Auto) 0.1 (0.0-0.4) X10*3/uL Baso # (Auto) 0.0 (0.0-0.2) X10*3/uL Abs Immat Gran (auto) 0.02 (0.00-0.03) X10*3/uL Absolute Neuts (auto) 5.0 (2.0-8.3) x10*3/uL Absolute Nucleated RBC 0.000 (0.0-0.012) X10*3/uL Nucleated RBC % (auto) 0.0 (0.0-0.2) /100WBC Sodium 139 (135-145) mmol/L Potassium 4.2 (3.3-5.1) mmol/L Chloride 107 (96-108) mmol/L Carbon Dioxide 24 (22-29) mmol/L Anion Gap 12 (12-20) BUN 36 H (9-16) mg/dL Creatinine 0.94 (0.5-1.4) mg/dL Estim Creat Clear Calc 84.8 Estimated GFR > 60 Random Glucose 113 (60-115) mg/dL Calcium 9.4 (8.4-10.2) mg/dL Total Bilirubin 0.7 (0.0-1.0) mg/dL Direct Bilirubin 0.3 (0.0-0.5) mg/dL AST 30 (5-37) U/L ALT 29 (0-40) U/L Alkaline Phosphatase 51 (39-117) U/L Total Protein 7.4 (6.5-8.0) g/dL Albumin 4.5 (3.5-5.0) g/dL Lipase 40 (8-78) U/L Independent Interpretation I performed an independent interpretation of an: CT Scan Radiology Impression Discussion of test interpretation with radiology: I have reviewed the radiologist's reading. External Record Review External record reviewed: Inpatient record, Office record, Outpatient record and Prior outpatient labs Prescription Management I considered prescription management with: Other Chronic Conditions Patient?s care impacted by: Hypertension appendectomy arthroscopic knee surgery aortic aneurysm hypertension osteoarthritis of the right knee pulmonary fibrosis Medications Administered Discontinued Medications Generic Name Dose Route Start Last Admin Trade Name Freq PRN Reason Stop Dose Admin Dicyclomine HCl 10 mg 08/10/23 08:57 08/10/23 09:03 Dicyclomine Hcl 10 Mg Capsule PO 08/10/23 08:58 10 mg ONCE ONE Administration Sodium Chloride 1,000 mls @ 999 mls/hr 08/10/23 08:45 08/10/23 10:15 Ns IV 08/10/23 09:45 Infused .Q1H1M JUAREZ Infusion Iohexol 100 ml 08/10/23 09:21 08/10/23 09:21 Iohexol 350 Mg/Ml 100 Ml Infus..Btl IV 08/10/23 09:22 85 ml ONCE ONE Administration Morphine Sulfate 4 mg 08/10/23 08:33 08/10/23 09:05 Morphine Sulfate 4 Mg/Ml Cartridge IVPUSH 08/10/23 08:34 Not Given ONCE ONE Protocol Ondansetron HCl 4 mg 08/10/23 08:33 08/10/23 09:03 Ondansetron Hcl 4 Mg/2 Ml Vial IVPUSH 08/10/23 08:34 4 mg ONCE ONE Administration Discharge Plan Discharge Clinical Impression: Vomiting, Acute diarrhea, Acute dehydration Patient Disposition: Home, Self-Care Instructions: Dehydration (ED), Acute Nausea and Vomiting (ED), Acute Diarrhea (ED), Acute Abdominal Pain (DC) Additional Instructions: You were seen in the emergency department for abdominal pain nausea vomiting and diarrhea. You underwent blood work and a CT scan which did not find anything acute. Please call follow up with . 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 Prescriptions: New famotidine [Pepcid] 20 mg tablet 20 mg PO BID PRN (Reason: abdominal discomfort) Qty: 60 0RF ondansetron 4 mg tablet,disintegrating 4 mg PO Q6H Qty: 14 0RF No Action simvastatin 40 mg tablet 40 mg PO BEDTIME Qty: 90 2RF cyanocobalamin (vitamin B-12) [Vitamin B-12] 1,000 mcg Tablet 1,000 mcg PO DAILY Qty: 90 2RF (DME) blood pressure monitor Kit See Rx Instructions .ROUTE .MEDSUPPLY Qty: 1 0RF Rx Instructions: Automatic, Digital. Dx: I10. Daily As directed, 999 days/lifetime ibuprofen [Motrin IB] 200 mg capsule 800 mg PO Q6H lidocaine 5 % adhesive patch,medicated 1 patch topical DAILY Qty: 15 0RF Rx Instructions: leave on most painful area for up to 12 hrs albuterol sulfate 90 mcg/actuation HFA aerosol inhaler 1 inh inhalation QID PRN (Reason: shortness of breath or wheezing) Qty: 6.7 0RF hydrochlorothiazide 25 mg tablet 25 mg PO DAILY 90 Days Qty: 90 2RF lisinopril [Zestril] 20 mg tablet 20 mg PO DAILY 90 Days Qty: 90 2RF aspirin [Adult Aspirin Regimen] 81 mg tablet,delayed release (DR/EC) 81 mg PO DAILY Print Language: [place]
[2023-08-10] MEDS: 0.9 % Sodium Chloride 1,000 ML 999 ML IV (09:03)
[2023-08-10] MEDS: Dicyclomine HCl 10 MG CAPSULE PO (09:03)
[2023-08-10] MEDS: ondansetron HCL 4 MG/2 ML VIAL IVPUSH (09:03)
--- NOTE | 2023-08-10 09:04 | PC.NURSE ---
pt refused morphine provider notified and was given po medication instead, iv inserted and ivf running per orders.
[2023-08-10] MEDS: iohexoL 350 MG/ML 100 ML INFUS..BTL IV (09:21)
[2023-08-10 10:54] VITALS: BP 100/48; PULSE 75; RESP 18; TEMP 36.7; O2SAT 95
== END 2023-08-10 10:55 | disposition home or self-care (01) ==
PROVIDERS: Emergency Provider Student in an Organized Health Care Education/Training Program; PCP Family Medicine
DX: R10.84 Generalized abdominal pain (principal); R11.2 Nausea with vomiting, unspecified; E86.0 Dehydration; I10 Essential (primary) hypertension; Z79.899 Other long term (current) drug therapy
CPT/HCPCS: 36415; 74177; 80048; 80076; 83690; 85025; 96361; 96374; 99284; J2405; Q9967

== ENCOUNTER 2023-08-18 09:14 | Outpatient (AMB) | payer MEDICARE, SELFPAY ==
--- NOTE | 2023-08-18 09:11 | A.OFFPC_ITS ---
Vital Signs 08/18/23 09:16 Height 6 ft Weight 205 lb BMI 27.8 BP 108/70 Blood Pressure Location Rt brachial Position Sitting Pulse 70 Pulse Source Pulse Oximeter Temp 97.8 F Temp Source Oral Pulse Oximetry (%) 99 Oxygen Delivery Method Room Air Intake Visit Reasons: [facility] 08/10/23 Intake Note: Refferal to [facility]. Dr Walters. Bindery Machine Setter Required: No Allergies prednisone Adverse Reaction (Mild, Verified 08/18/23 09:21) chest tightness, hard to breathe Medication List - Last Reconciled 08/18/23 by Maria Luz Solomon, [facility] blood pressure monitor Automatic, Digital. Dx: I10. Daily As directed, 999 days/lifetime famotidine 20 mg PO BEDTIME hydrochlorothiazide 12.5 mg PO DAILY lisinopril (Zestril) 20 mg PO DAILY 90 days simvastatin 40 mg PO BEDTIME Tobacco use date assessed: 06/13/23 Dental Screening Dental Screen Date: 04/19/23 HPI HPI Comments History of Present Illness Details 68-year-old male here today for hospital discharge follow up. Presented to [facility] on 08/10/2023 for chief complaints of abdominal pain, nausea, vomiting and diarrhea for 2 days associated with low energy. Workup reviewed to include labs and CT of the abdomen. CT of abdomen did not reveal any acute findings. See below. He was discharged home with new prescriptions for: New famotidine [Pepcid] 20 mg tablet 20 mg PO BID PRN (Reason: abdominal discomfort) Qty: 60 0RF ondansetron 4 mg tablet,disintegrating 4 mg PO Q6H Qty: [address]/CT abdomen pelvis w IV con IMPRESSION: 1. A cause for the patient's abdominal pain has not been found. 2. An abdominal aortic aneurysm is not detected. 3. Incidental note made of mild splenom egaly, colonic diverticulosis without diverticulitis, small hiatal hernia and mild BPH. VASCULAR: Calcific atherosclerotic changes are present in the aorta and iliofemoral vessels Today he presents w/ cont sx. Pain in LLQ he wonders if he has a hernia as he has had this before Overall his sx have improved w use of pepcid - however only taking daily as he does not like taking medications. cont w diarrhea, no solid stools in 3 weeks reports yellow in color, nonbloody, last time today. Denies etoh intake in 1 year. burping constantly tired all the time - which is new also has chronic feeling of food getting stuck no more vomiting has not needed Zofran Using APAP to help w/ pain Tolerating diet Reports urinating more at HS, several times per night which is new. Reports yellow and foamy. would like referral to Dr Walters [facility] Medical History (Updated 08/18/23 @ 09:38 by Maria Luz Solomon, [facility]) Right wrist pain Upper respiratory tract infection Cough HTN (hypertension) Aortic aneurysm Osteoarthritis of right knee Right knee pain Surgical History History of inguinal hernia repair History of appendectomy H/O arthroscopic knee surgery Family History Father CHF (congestive heart failure) Mother No problems noted. 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: [employer]- left handed Current occupational exposures/hazards: No Cognitive needs: No Hearing needs: No Vision needs: No Questionnaire Thrive Questionnaire Date Thrive assessed: 04/19/23 KEITH-7 AMB Questionnaire KEITH-7 Date KEITH - 7 assessed: 04/19/23 Source: Developed by Drs. Tyler Johnson, Orly Parker, Ankit Banda and colleagues, with an educational simone from [employer]. Review of Systems Const All systems reviewed & are unremarkable except as noted in HPI and below Physical exam (Primary Care) Vital Signs: Last Vital Signs Temp 97.8 F 08/18/23 09:16 Pulse 70 08/18/23 09:16 BP 108/70 08/18/23 09:16 Pulse Ox 99 08/18/23 09:16 Oxygen Delivery Method Room Air 08/18/23 09:16 BMI result Body Mass Index 27.8 Tobacco/Smoking Status: Tobacco use Status Tobacco use date assessed 06/13/23 08/18/23 09:11 Patient Tobacco Use Status Never used Tobacco 08/18/23 09:11 e-Cigarette/Vaping Use Never Used 08/18/23 09:11 Thrive Assessment: Date of Thrive Assessment Date Thrive assessed 04/19/23 08/18/23 09:11 Const Other: awake alert NAD scleras nonicteric bilat MMM RRR LS CTAB No CVAT Abd soft, bs normoactive, pain w/ palp LLQ w/o rebound, no peritoneal signs Assessment and Plan Assessment & Plan (1) Hospital discharge follow-up: Code(s): Z09 - Encounter for follow-up examination after completed treatment for conditions other than malignant neoplasm (2) Dysphagia, unspecified: Code(s): R13.10 - Dysphagia, unspecified Qualifiers: Dysphagia type: other dysphagia Qualified Code(s): R13.19 - Other dysphagia (3) Diarrhea: Code(s): R19.7 - Diarrhea, unspecified Qualifiers: Diarrhea type: unspecified type Qualified Code(s): R19.7 - Diarrhea, unspecified (4) LLQ abdominal pain: Code(s): R10.32 - Left lower quadrant pain Plan: Given presentation today, i want to repeat labs and order stool samples he declined stating his labs were fine at the ED This note is constructed using voice recognition software. While every effort has been made to ensure accuracy in buildings and grounds director, still errors may have been included Sometimes, these errors may affect the content or meaning of the given sentence . Total time spent caring for the patient today was 30 minutes. This includes time spent before the visit reviewing the chart, time spent during the visit, and time spent after the visit on documentation Orders: Orders UA CC w/rflx Micro + Cult Today R10.32 - Left lower quadrant pain Referrals Gastroenterology Referral R10.32 - Left lower quadrant pain, R13.10 - Dysphagia, unspecified, R19.7 - Diarrhea, unspecified Patient Instructions: SChedule followup with Dr Maya in 1 week to f/u on your abd pain If you're able to get into see Dr Walters, no need for PCP FU You will be called only with abnormal urine resuts Offered and declined stool studies and labs today Cont pepcid as directed which is twice per day, not daily. Sparing use of APAP for pain Encouraged hydration and diet as tolerated Edu on reasons to seek add'l care Coding Level of Care Code Est Pt Level 4 (75699) Diagnoses Hospital discharge follow-up Z09 Other dysphagia R13.19 Dysphagia type: other dysphagia Diarrhea, unspecified type R19.7 Diarrhea type: unspecified type LLQ abdominal pain R10.32
[2023-08-18 09:16] VITALS: BP 108/70; PULSE 70; TEMP 36.6; O2SAT 99; BMI 27.8
== END 2023-08-18 09:40 | disposition home or self-care (01) ==
PROVIDERS: PCP Family Medicine; Visit Provider Nurse Practitioner Family
DX: Z09 Encounter for follow-up examination after completed treatment for conditions other than malignant neoplasm (principal); R13.19 Other dysphagia; R19.7 Diarrhea, unspecified; R10.32 Left lower quadrant pain
CPT/HCPCS: 99214

== ENCOUNTER 2023-08-18 09:35 | Outpatient (REF) | payer MEDICARE, SELFPAY ==
[2023-08-18 11:17] LABS: Appearance Urine Clear; Color Urine Yellow; Glucose Urine UA Negative (Negative); Leukocyte Esterase Urine Negative (Negative); Nitrite Urine Negative (Negative); Specific Gravity - Urine 1.015 (1.005-1.025); Urine Blood Negative (Negative); Urine Ketones Negative (Negative); Urine Protein Negative (Neg-Trace)
== END 2023-08-18 09:36 | disposition home or self-care (01) ==
LOC: HO.WFDLDS 09:35
PROVIDERS: Visit Provider Nurse Practitioner Family
DX: R10.32 Left lower quadrant pain (principal)
CPT/HCPCS: 81003

== ENCOUNTER 2023-08-28 12:55 | Day surgery (SDC) | payer MEDICARE, SELFPAY ==
[2023-08-28 13:21] VITALS: BMI 27.1
--- NOTE | 2023-08-28 13:30 | PC.NURSE ---
24 hour update documented on paper chart.
[2023-08-28 13:46] VITALS: BP 137/80; PULSE 72; RESP 16; TEMP 36.3; O2SAT 98
[2023-08-28] MEDS: Lactated Ringers 1,000 ML 80 ML IVCONT (13:48)
--- NOTE | 2023-08-28 14:30 | P.CONAN_ITS ---
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 (Acute) Diarrhea (Acute) Chest pain on exertion (Acute) Adult general medical exam (Acute) Mild anemia (Acute) Low HDL (under 40) (Acute) Essential hypertension (Acute) Dysphagia, unspecified (Acute) Aortic aneurysm (Acute) Dilatation of thoracic aorta (Acute) Laboratory examination ordered as part of a routine general medical examination (Acute) Annual physical exam (Acute) Arthritis (Acute) Constipation (Acute) Anxiety (Acute) Labyrinthitis (Acute) Seasonal allergies (Acute) Screening for colon cancer (Acute) Screening for prostate cancer (Acute) Change in hearing (Acute) Hyperlipidemia (Acute) Thrombocytopenia (Acute) Leukopenia (Acute) Osteoarthritis of right knee (Acute) Past Medical History Medical History Right wrist pain Upper respiratory tract infection Cough HTN (hypertension) Aortic aneurysm Osteoarthritis of right knee Right knee pain Family History Family History Father CHF (congestive heart failure) Mother No problems noted. Brother Pulmonary fibrosis Brother Stomach cancer Brother MVA (motor vehicle accident) Family history of problems with anesthesia: No Surgical History Surgical History History of inguinal hernia repair History of appendectomy H/O arthroscopic knee surgery History of Problems with Anesthesia: No Social History Social History Household Members: Family Household Members Other:: mother Housing: House Alcohol intake: never Patient Tobacco Use Status: Never used Tobacco e-Cigarette/Vaping Use: Never Used Second Hand Smoke Exposure: No Use of substances other than those prescribed or required for medical reasons: No Are you DNR?: No Advance Directives: No Advance Directives Information Provided: Yes service: No Current occupational status: employed 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 Current occupational exposures/hazards: No Cognitive needs: No Hearing needs: No Vision needs: No Meds Allergies Allergy/AdvReac Type Severity Reaction Status Date / Time prednisone AdvReac Mild chest Verified 08/28/23 13:27 tightness, hard to breathe Active Medications: Current Medications Lactated Ringer's (Lr) 1,000 mls @ 80 mls/hr IVCONT .[id number] Last Admin: 08/28/23 13:48 Dose: 80 mls/hr Home Medications ?Medication ?Instructions ?Recorded ?Confirmed ?Last Taken ?Type famotidine 20 mg tablet 20 mg PO BEDTIME 08/18/23 08/28/23 08/27/23 History hydrochlorothiazide 12.5 mg capsule 12.5 mg PO DAILY 08/18/23 08/28/23 08/27/23 History Exam Height,Weight and Vital Signs: Height 6 ft Weight 90.718 kg Last Vital Signs Temp 97.3 F 08/28/23 13:46 Pulse 72 08/28/23 13:46 Resp 16 08/28/23 13:46 BP 137/80 08/28/23 13:46 Pulse Ox 98 08/28/23 13:46 O2 Del Method Room Air 08/28/23 13:46 Airway Mallampati Class: II TM Dist: >3cm Neck ROM: Limited Partial: Upper (front) Heart: rrr Lungs: cta Assessment and Plan Assessment Anesthesia Assessment: Anesthesia Plan Discussed Final Anesthetic Review Family History of Problems with Anesthesia: No History of Problems with Anesthesia: No NPO: Yes ASA Class: III Final Preanesthetic Review: No Changes in Pt Med Stat, Meds/Allgs Chart Reviewed, Consent Obtained/Reviewed and Anes Risks/Benef Reviewed Patient Risk: Intermediate Procedure Risk: Low Anesthetic Plan Anesthetic Plan: MAC: Disposition: Standard PACU
[2023-08-28 15:00] VITALS: BP 99/64; PULSE 76; RESP 12; TEMP 36.3; O2SAT 93
--- NOTE | 2023-08-28 15:06 | PM.OP ---
Brief Operative Note Date of Service: 08/28/23 Pre-op diagnosis: Dysphagia Post-op diagnosis: other (Esophageal stricture, Hiatal hernia) Procedure: EGD with Balloon dilation from 18mm to 19mm, and biopsies Surgeon: Tyler Walters MD Anesthesia: MAC Was an Director Learning And Development used for this Procedure?: No Estimated blood loss (mL): 2.0 Pathology: other (A. EG Junction at 38cm) Condition: stable Disposition: PACU
[2023-08-28 15:15] VITALS: BP 105/64; PULSE 70; RESP 14; O2SAT 96
[2023-08-28 15:30] VITALS: BP 119/75; PULSE 67; RESP 16; TEMP 36.6; O2SAT 95
--- NOTE | 2023-08-28 15:50 | OP_ITS ---
DATE OF SERVICE: 08/28/2023 SURGEON: Tyler Walters MD INDICATIONS: The patient presents for evaluation of dysphagia. Full consent has been obtained from him for this, including risks of bleeding and perforation. PREOPERATIVE DIAGNOSIS: POSTOPERATIVE DIAGNOSIS: Dysphagia. PROCEDURE PERFORMED: Esophagogastroduodenoscopy with balloon dilation of esophageal stricture and biopsies. ESTIMATED BLOOD LOSS: COMPLICATIONS: ANESTHESIA: Monitored anesthesia care. ASSISTANTS: SPECIMENS: PREOPERATIVE DIAGNOSES: Dysphagia, distal esophageal stricture, small hiatal hernia, gastroesophageal reflux. DESCRIPTION OF PROCEDURE: The patient was placed in the left lateral decubitus position. The Olympus video gastroscope was passed in the posterior oropharynx and upper esophagus under direct vision. The scope was passed slowly into the distal esophagus. The gastroesophageal junction appeared at 38 cm. There was a nonobstructing fibrotic-appearing stricture at this level. The scope did pass this, although with some hesitation. There was no ulceration nor mass. There was no gross evidence of Haskins mucosa. There was a small hiatal hernia. The scope was advanced to the pylorus and the duodenum was cannulated to the descending portion. The duodenum including the bulb appeared normal without mass or ulceration. The scope was withdrawn back in the stomach. The gastric antrum and body appeared normal with good peristalsis. The scope was retroflexed, visualizing the proximal stomach carefully, which appeared normal, without any sign of mass or ulceration. The scope was straightened. The scope was withdrawn back in the esophagus. I did use a [employer] incremental balloon to dilate the stricture and EG junction from 18 mm to 19 mm at the recommended pressure for between 30 and 60 seconds each. Post dilation, there was disruption of the stricture noted with some heme. It was definitely easier to move the scope into and out of the stomach. I did obtain some biopsies from the EG junction as well. The scope was withdrawn through the remainder of the esophagus, which appeared normal. The scope was withdrawn from the patient. He tolerated the procedure well and was returned to the recovery area in stable condition. IMPRESSION: 1. Distal esophageal stricture, status post balloon dilation. 2. Small hiatal hernia, gastroesophageal reflux. PLAN: The results of the biopsies will be checked. Given this finding, I will start him on omeprazole 40 mg daily and then he will be seen in followup in the office. He was advised not to use any aspirin and NSAIDs for least 1 week. He was advised to call sooner if he continues to have problems with swallowing or develops a recurrence of the dysphagia prior to his followup visit with me. MD FANTA Cho/CANDE / [phone]
== END 2023-08-28 15:46 | disposition home or self-care (01) ==
PROVIDERS: PCP Family Medicine; Visit Provider Internal Medicine
PROC: (CPT 43249; principal; 2023-08-28 14:10)
DX: R13.10 Dysphagia, unspecified (principal); K22.2 Esophageal obstruction; R10.84 Generalized abdominal pain; K21.9 Gastro-esophageal reflux disease without esophagitis; K44.9 Diaphragmatic hernia without obstruction or gangrene; I10 Essential (primary) hypertension; I71.20 Thoracic aortic aneurysm, without rupture, unspecified; E78.5 Hyperlipidemia, unspecified; Z79.82 Long term (current) use of aspirin; Z79.899 Other long term (current) drug therapy; Z98.890 Other specified postprocedural states
CPT/HCPCS: 43249; 43239; 88305; 88313; C1726; J2250; J2704

== ENCOUNTER 2023-09-14 07:09 | Emergency (ER) | payer MEDICARE, SELFPAY ==
[2023-09-14] VITALS (7 sets, daily range): BP systolic 102–133; BP diastolic 60–82; PULSE 59–75; RESP 11–16; TEMP 36.6–36.8; O2SAT 96–100; BMI 27.1
[2023-09-14] MEDS: diphenhydrAMINE HCL 50 MG/ML VIAL 25 MG IVPUSH (08:17)
[2023-09-14] MEDS: methylPREDNISolone Sod Succ 125 MG/2 ML VIAL 60 MG IVPUSH (08:17)
[2023-09-14] MEDS: Famotidine/PF 20 MG/2 ML VIAL IVPUSH (08:17)
--- NOTE | 2023-09-14 08:23 | ED.ALLEREA ---
HPI - Allergic Reaction General Chief complaint: General Medical Stated complaint: swollen face Time Seen by Provider: 09/14/23 08:04 Source: patient Mode of arrival: ambulatory Limitations: no limitations History of Present Illness ED Provider: JUAN CARLOS CISSE narrative: 68 yo male with PMH of CAD, HTN, dysphagia, aortic aneurysm, anxiety, HLD, thrombocytopenia who takes lisinopril woke up daily at 4am today and noted swelling to R lower jaw and lip and some mild tongue swelling no diff swallowing or breathing. This has never happened before. MD complaint: facial swelling Onset (ago): hour(s) (4am today) Exposure: medication Symptoms: facial swelling and lip swelling Severity: moderate Treatment prior to arrival: none Previous Allergic Reaction History: none Related Data Home Medications ?Medication ?Instructions ?Recorded ?Confirmed famotidine 20 mg tablet 20 mg PO BEDTIME 08/18/23 08/28/23 hydrochlorothiazide 12.5 mg capsule 12.5 mg PO DAILY 08/18/23 08/28/23 Previous Rx's ?Medication ?Instructions ?Recorded blood pressure monitor #1 ea 05/31/21 lisinopril 20 mg tablet (Zestril) 20 mg PO DAILY htn 90 days #90 tabs 04/19/23 simvastatin 40 mg tablet 40 mg PO BEDTIME #90 tabs 05/18/23 amlodipine 5 mg tablet 5 mg PO DAILY #30 tabs 09/14/23 Allergies Allergy/AdvReac Type Severity Reaction Status Date / Time prednisone AdvReac Mild chest Verified 09/14/23 07:27 tightness, hard to breathe Review of Systems Review of Systems: Constitutional : No Fever, No Chills ENT/Mouth : positive oral swelling, No Hoarseness, No Swallowing Difficulty Eyes: No Eye Pain, No Swelling, No Redness Cardiovascular : No Chest Pain, No SOB Respiratory : No Cough, No Sputum, No Wheezing, No Smoke Exposure, No Dyspnea Gastrointestinal : No Nausea, No Vomiting, No Diarrhea, No abdominal Pain Genitourinary : No Dysuria, No Urinary Frequency, No Hematuria Musculoskeletal : No joint pain, No Myalgias, No Joint Swelling Skin : No Skin Lesions, no rash Neuro : No Weakness, No Numbness, No Headache Psych : No Anxiety/Panic, No Depression Heme/Lymph: No Bruising, No Lymphadenopathy Endocrine : No Polyuria, No Polydipsia All other systems reviewed and are negative PMFSH Past Medical History Attestation statement: The following information was validated with the patient. Source: old records reviewed Medical History Right wrist pain Upper respiratory tract infection Cough HTN (hypertension) Aortic aneurysm Osteoarthritis of right knee Right knee pain Surgical History History of inguinal hernia repair History of appendectomy H/O arthroscopic knee surgery Family History Family History Father CHF (congestive heart failure) Mother No problems noted. Brother Pulmonary fibrosis Brother Stomach cancer Brother MVA (motor vehicle accident) Social History Social History Household Members: Family Household Members Other:: mother Housing: House Alcohol intake: never Patient Tobacco Use Status: Never used Tobacco e-Cigarette/Vaping Use: Never Used Second Hand Smoke Exposure: No Advance Directives: No service: No Current occupational status: employed Current occupation: [employer]- left handed Current occupational exposures/hazards: No Cognitive needs: No Hearing needs: No Vision needs: No Physical Exam ED Vital Signs: Vital Signs - 24 hr 09/14/23 07:24 09/14/23 07:55 09/14/23 08:23 Temperature 98.1 F 98.1 F Pulse Rate 75 72 66 Respiratory Rate 16 11 L 11 L Blood Pressure 133/82 127/69 111/60 Pulse Oximetry 98 96 99 Oxygen Delivery Method Room Air Room Air Room Air 09/14/23 11:14 09/14/23 12:52 Temperature 98.2 F 97.8 F Pulse Rate 59 59 Respiratory Rate 12 14 Blood Pressure 102/60 117/60 Pulse Oximetry 99 100 Oxygen Delivery Method Room Air Room Air BMI result Body Mass Index 27.1 Appearance: Alert. Oriented X3. No acute distress. Eyes: Pupils equal, round and reactive to light. ENT: Pharynx swelling to R lower jaw and jaw line mild with mild R lower lip swelling no posterior pharynx swelling tip of tongue possible swelling - back of pharynx normal Neck: Normal inspection. Neck supple. CVS: Normal heart rate and rhythm. Pulses normal. Respiratory: No respiratory distress. Breath sounds normal. Abdomen: Soft and nontender. Skin: Skin warm and dry. Normal skin color. Normal skin turgor. Extremities: No lower extremity edema. No calf ttp Neuro: Oriented X 3. No motor deficit. No sensory deficit. Course Course Course Narrative: improved no progression Medications Administered Discontinued Medications Generic Name Dose Route Start Last Admin Trade Name Ora PRN Reason Stop Dose Admin Diphenhydramine HCl 25 mg 09/14/23 08:07 09/14/23 08:17 Diphenhydramine Hcl 50 Mg/Ml Vial IVPUSH 09/14/23 08:08 25 mg ONCE ONE Administration Famotidine 20 mg 09/14/23 08:07 09/14/23 08:17 Famotidine/Pf 20 Mg/2 Ml Vial IVPUSH 09/14/23 08:08 20 mg ONCE ONE Administration Methylprednisolone Sodium Succinate 60 mg 09/14/23 08:08 09/14/23 08:17 Methylprednisolone Sod Succ 125 Mg/2 Ml Vial IVPUSH 09/14/23 08:09 60 mg ONCE ONE Administration Medical Decision Making Medical Decision Making [facility] Narrative: 68 yo male with PMH of CAD, HTN, dysphagia, aortic aneurysm, anxiety, HLD, thrombocytopenia here with likely NIDIA-i angioedema at this time will give steroids, pepcid benadryl hold epi given CAD and aneurysm will monitor airway closely stop lisinopril. Differential Diagnosis Differential Diagnoses: The differential diagnosis associated with the presentation includes angioedema, swelling, allergic reaction Admission/Observation Consideration of admission/observation: Escalation of care including admission/observation considered monitored for 6 hours improved mild R lower swelling no worsening at this time can be DC will start on amlodipine for next month then can be switched to ARB External Record Review External record reviewed: Inpatient record Prescription Management I considered prescription management with: Other Discharge Plan Discharge Clinical Impression: Angioedema Qualifiers: Encounter type: initial encounter Qualified Code(s): T78.3XXA - Angioneurotic edema, initial encounter Patient Disposition: Home, Self-Care Instructions: Amlodipine (By mouth), Angioedema (ED) Additional Instructions: return for worsening swelling, change in voice, difficulty swallowing or signs that the swelling has worsened. DO NOT TAKE LISINOPRIL will start on new blood pressure med in the next one month for heart protective effects your doctor might want to start you on an ARB please follow up and stop this medication but may want to wait a few weeks to do so Prescriptions: New amlodipine 5 mg tablet 5 mg PO DAILY Qty: 30 0RF No Action simvastatin 40 mg tablet 40 mg PO BEDTIME Qty: 90 2RF (DME) blood pressure monitor Kit See Rx Instructions .ROUTE .MEDSUPPLY Qty: 1 0RF Rx Instructions: Automatic, Digital. Dx: I10. Daily As directed, 999 days/lifetime lisinopril [Zestril] 20 mg tablet 20 mg PO DAILY 90 Days Qty: 90 2RF hydrochlorothiazide 12.5 mg capsule 12.5 mg PO DAILY famotidine 20 mg tablet 20 mg PO BEDTIME Print Language: German
--- NOTE | 2023-09-14 08:31 | PC.NURSE ---
pt reports waking up around 0430 w left sided facial, lip swelling, denies difficulty swallowing, managing secretions, RR even and unlabored. medicated per MAY.
== END 2023-09-14 14:58 | disposition home or self-care (01) ==
PROVIDERS: Emergency Provider Emergency Medicine; PCP Family Medicine
DX: T78.3XXA Angioneurotic edema, initial encounter (principal); X58.XXXA Exposure to other specified factors, initial encounter
CPT/HCPCS: 96374; 96375; 99284; J1200; J2919

== ENCOUNTER 2023-10-04 09:00 | Outpatient (AMB) | payer MEDICARE, SELFPAY ==
--- NOTE | 2023-10-04 09:11 | A.OFFPC_ITS ---
Vital Signs 10/04/23 09:22 Weight 202 lb BP 130/60 Blood Pressure Location Lt brachial Position Sitting Respiration 18 Pulse 72 Pulse Source Pulse Oximeter Temp 98.3 F Temp Source Oral Pulse Oximetry (%) 96 Oxygen Delivery Method Room Air Intake Visit Reasons: CPE Intake Note: CPE,patient is also having bilateral decreased hearing questioning impaction Allergies prednisone Adverse Reaction (Mild, Verified 10/04/23 09:13) chest tightness, hard to breathe Lisinopril Allergy (Severe, Uncoded 10/04/23 10:05) Angioedema Medication List - Last Reconciled 10/04/23 by Dewayne Cardona MD amlodipine 5 mg PO DAILY blood pressure monitor Automatic, Digital. Dx: I10. Daily As directed, 999 days/lifetime famotidine 20 mg PO BEDTIME hydrochlorothiazide 12.5 mg PO DAILY lisinopril (Zestril) 20 mg PO DAILY 90 days simvastatin 40 mg PO BEDTIME Tobacco use date assessed: 10/04/23 Fall risk assessment: No Falls in past year Last assessed Fall Risk: 10/04/23 Dental Screening Dental Screen Date: 10/04/23 Did you have a dental visit in the last 12 months?: No Did you have a dental problem in the last 6 months where you did not have access to dental care?: No Was dental information given to patient?: Patient has dentist HPI CPE HPI Details 68 y/o male presents for a CPE with f/u labs and health maintenance. No recent CPE-labs to review. Had a borderline anemia in August. Blood pressure today 130/60. He is prescribed lisinopril 20mg, hydrochlorothiazide 12.5mg, amlodipine 5mg daily. He reports he is no longer taking lisinopril. [facility] Medical History Right wrist pain Upper respiratory tract infection Cough HTN (hypertension) Aortic aneurysm Osteoarthritis of right knee Right knee pain Surgical History History of inguinal hernia repair History of appendectomy H/O arthroscopic knee surgery Family History Father CHF (congestive heart failure) Mother No problems noted. Brother Pulmonary fibrosis Brother Stomach cancer Brother MVA (motor vehicle accident) Social History (Updated 10/04/23 @ 09:15 by Gil Ibarra) Household Members: Family Household Members Other:: mother Housing: House Alcohol intake: never Patient Tobacco Use Status: Never used Tobacco e-Cigarette/Vaping Use: Never Used Second Hand Smoke Exposure: No service: No Current occupational status: employed Current occupation: [employer] Current occupational exposures/hazards: No Cognitive needs: No Hearing needs: No Vision needs: No Questionnaire Thrive Questionnaire Date Thrive assessed: 04/19/23 AUDIT C Alcohol Use Questionnaire (AUDIT-C) 1. How often do you have a drink containing alcohol?: 2-3 times a week 2. How many drinks containing alcohol do you have on a typical day when you are drinking?: 3 or 4 3. How often do you have six or more drinks on one occasion?: Weekly Total Score: 7 Score Reviewed/Action Taken: Yes KEITH-7 AMB Questionnaire KEITH-7 Date KEITH - 7 assessed: 04/19/23 Source: Developed by Drs. Tyler Johnson, Orly Parker, Ankit Banda and colleagues, with an educational simone from [employer]. Review of Systems Const Denies chills, Denies fatigue, Denies fever(s), Denies headache(s) and Denies weakness Eyes Denies change in vision ENT Denies dizziness and Denies headache(s) Card Denies dyspnea Resp Denies cough, Denies dyspnea, Denies wheezing and Denies other (shortness of breath) GI Denies abdominal pain, Denies melena, Denies hematochezia, Denies change in bowel habits, Denies dyspepsia and Denies nausea Denies hematuria and Denies dysuria Musc Denies numbness and Denies tingling Skin/Breast Denies rash, Denies unusual bruising and Denies wounds Neuro Denies dizziness, Denies headache(s), Denies numbness, Denies Sensory deficit (Neuro), Denies tingling and Denies weakness Psych Denies anxiety and Denies depression Endo Denies fatigue Rakesh/Lymph Denies easy bleeding and Denies easy bruising Aller/Immun Denies wheezing Physical exam (Primary Care) Vital Signs: Last Vital Signs Temp 98.3 F 10/04/23 09:22 Pulse 72 10/04/23 09:22 Resp 18 10/04/23 09:22 BP 130/60 10/04/23 09:22 Pulse Ox 96 10/04/23 09:22 Oxygen Delivery Method Room Air 10/04/23 09:22 Tobacco/Smoking Status: Tobacco use Status Tobacco use date assessed 10/04/23 10/04/23 09:16 Patient Tobacco Use Status Never used Tobacco 10/04/23 09:15 e-Cigarette/Vaping Use Never Used 10/04/23 09:15 Thrive Assessment: Date of Thrive Assessment Date Thrive assessed 04/19/23 10/04/23 09:12 Const General: well developed; No acute distress Nutritional Appearance: well nourished Orientation/consciousness: patient oriented x3 HENMT Head: Yes normocephalic and Yes atraumatic Ears: hearing grossly normal bilaterally and TM's normal bilaterally General nose exam: Normal external nose present and Normal nares present Mouth: Normal oral and palatal mucosa present and moist mucous membranes Teeth and gingiva: dentition normal Throat: Yes posterior oropharynx normal Eyes General: appearance normal, both eyes and all related structures Pupils: Equal, round and reactive pupils present EOM: EOMs intact bilaterally Neck Neck: Yes normal visual inspection, Yes no lymphadenopathy and Yes trachea midline Thyroid: Thyroid normal Carotids: no bruits Lymphatic: no lymphadenopathy noted Chest Chest palpation & inspection: normal inspection of the chest Resp Effort & Inspection: normal respiratory effort Auscultation: clear to auscultation bilaterally Cardio Rate: regular rate Rhythm: regular rhythm Heart sounds: S1 normal heart sound present, S2 normal heart sound present, no gallops, no murmurs and no rubs Bruits: no abdominal aortic bruits and no carotid bruits GI Palpation (GI): No Abdominal aortic bruit present, Soft to palpation, nontender, No hepatosplenomegaly present and No Rebound tenderness present Auscultation: normal bowel sounds General: Yes no CVA tenderness Back/Spine/Pelvis Back: no CVA tenderness Cervical Spine: cervical ROM normal and No Cervical spine tenderness Thoracic/Lumbar Spine: thoraco-lumbar ROM normal, No pain with thoraco-lumbar ROM, No thoracic spinal tenderness and No lumbar spinal tenderness Skin Lesions: no lesions Rashes: no rashes Trauma: no lacerations or abrasions Wounds: no wounds Nails: normal Neuro General: patient oriented x3 and gait normal Cranial nerves: Yes Equal, round and reactive pupils present Cognition (Neuro): normal cognition Gait exam (Neuro): Normal gait present Motor exam (neuro): 5/5 motor strength present throughout Sensory Exam: No Sensory deficit (Neuro) Deep tendon reflexes (DTR's): Right patellar reflex intensity grade: 2+ and Left patellar reflex intensity grade: 2+ Extrem General: Yes normal to inspection and No edema Psych Appearance: grossly normal Affect: normal affect Attitude: cooperative Thought process: Normal thought process present Assessment and Plan Assessment & Plan (1) Essential hypertension: Comment: Blood pressure goal is less than 120/70 due to aortic aneurysm Code(s): I10 - Essential (primary) hypertension Plan: Blood?pressure?is?a?little?high?since?taking?him?off?lisinopril - discontinued?due?to?angioedema This?was?replaced?with?amlodipine?5?mg?daily?but?I?will?increase? this?to?10?mg?daily (2) Aortic aneurysm: Comment: Blood pressure goal is less than 120/70 due to aortic aneurysm Code(s): I71.9 - Aortic aneurysm of unspecified site, without rupture Plan: As?above,?blood?pressure?is?a?little?elevated?and?I?am?increasing?his?amlodipine Followed?by?cardiology?and?has?been?stable Follow-up?with?Cardiology?as?recommended (3) Difficulty hearing: Code(s): H91.90 - Unspecified hearing loss, unspecified ear Plan: Patient?notes?difficulty?hearing,?tinnitus?and?some?vertigo TMs?are?clear Checking?audiology?and?referring?him?to?ENT (4) Borderline anemia: Code(s): D64.9 - Anemia, unspecified Plan: We?can?follow-up?on?this?prior?to?his?next?visit (5) Screening for colon cancer: Code(s): Z12.11 - Encounter for screening for malignant neoplasm of colon Plan: Patient?is?followed?by?.??Had?colonoscopy?5?years?ago?and?is?told?to?fo llow-up?in?another?5?years Up-to-date (6) Screening for prostate cancer: Code(s): Z12.5 - Encounter for screening for malignant neoplasm of prostate Plan: PSA?at?last?check?was?within?normal?range Up-to-date Will?continue?annual?screening (7) Knee pain: Code(s): M25.569 - Pain in unspecified knee Plan: Right?knee?pain?and?osteoarthritis. Had?referred?him?to?orthopedics?but?he?does?not?appear?to?have?been?contacted Will?ask?the?office?to?help?facilitate?getting?him?scheduled. (8) Annual physical exam: Code(s): Z00.00 - Encounter for general adult medical examination without abnormal findings Plan: 68-year-old?male?presents?for?an?extended?exam Orders: Orders Complete Blood Count Auto Diff Today D64.9 - Anemia, unspecified, Z00.00 - Encounter for general adult medical examination without abnormal findings Comprehensive Met. Panel Today D64.9 - Anemia, unspecified Referrals Audiology Referral H91.90 - Unspecified hearing loss, unspecified ear Ear/Nose/Throat Referral H91.90 - Unspecified hearing loss, unspecified ear, H93.19 - Tinnitus, unspecified ear, R42 - Dizziness and giddiness Medications: Changed From amlodipine 5 mg PO DAILY 30 tabs 0RF To amlodipine 10 mg PO DAILY 90 days 90 tabs 3RF Discontinued lisinopril (Zestril) Discontinued Reason: Doctor's Order 20 mg PO DAILY 90 days 90 tabs 2RF htn Coding Level of Care Code Est Pt Level 4 (46305) Diagnoses Essential hypertension I10 Aortic aneurysm I71.9 Difficulty hearing H91.90 Borderline anemia D64.9 Screening for colon cancer Z12.11 Screening for prostate cancer Z12.5 Knee pain M25.569 Annual physical exam Z00.00
[2023-10-04 09:22] VITALS: BP 130/60; PULSE 72; RESP 18; TEMP 36.8; O2SAT 96
== END 2023-10-04 10:05 | disposition home or self-care (01) ==
PROVIDERS: PCP Family Medicine; Visit Provider Family Medicine
DX: I10 Essential (primary) hypertension (principal); I71.9 Aortic aneurysm of unspecified site, without rupture; H91.90 Unspecified hearing loss, unspecified ear; D64.9 Anemia, unspecified; Z12.11 Encounter for screening for malignant neoplasm of colon; Z12.5 Encounter for screening for malignant neoplasm of prostate; M25.569 Pain in unspecified knee; Z00.00 Encounter for general adult medical examination without abnormal findings
CPT/HCPCS: 99214

== ENCOUNTER 2023-10-30 10:20 | Outpatient (AMB) | payer MEDICARE, SELFPAY ==
--- NOTE | 2023-10-30 10:22 | MHC.OFFVIS ---
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 History of Right Knee Injection 02/13/20. Patient states that he had xrays done of his right knee and he has arthritis and calcium build up in his right knee, he does want a cortisone shot today because his last injection was helpful. 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 History of Right Knee Injection 02/13/20. Patient states that he had xrays done of his right knee and he has arthritis and calcium build up in his right knee, he does want a cortisone shot today because his last injection was helpful. [facility] Medical History Right wrist pain Upper respiratory tract infection Cough HTN (hypertension) Aortic aneurysm Osteoarthritis of right knee Right knee pain Surgical History History of inguinal hernia repair History of appendectomy H/O arthroscopic knee surgery Family History Father CHF (congestive heart failure) Mother No problems noted. 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: [employer] Current occupational exposures/hazards: No Cognitive needs: No Hearing needs: No Vision needs: No Physical Exam Extrem Other: A mild effusion but no joint line tenderness and full range of motion. Results Reviewed Results Reviewed: Right knee with moderate tricompartmental osteoarthritis Assessment & Plan Assessment & Plan (1) Osteoarthritis of right knee: Code(s): M17.11 - Unilateral primary osteoarthritis, right knee Category: Medical Plan: Osteoarthritis of the right knee. He is pretty asymptomatic at this time. If his symptoms worsening come back and see me for injections but no intervention warranted at this time. Coding Level of Care Code New Pt Level 3 (58754) Diagnoses Osteoarthritis of right knee M17.11
== END 2023-10-30 11:11 | disposition home or self-care (01) ==
LOC: HO.HOS 10:20
PROVIDERS: PCP Family Medicine; Visit Provider Orthopaedic Surgery
DX: M17.11 Unilateral primary osteoarthritis, right knee (principal)
CPT/HCPCS: 20610; 99202

== ENCOUNTER → 2023-10-30 10:20 | Outpatient (BNVA) | payer MEDICARE, SELFPAY | PROVIDERS: PCP Family Medicine; Visit Provider Orthopaedic Surgery | DX: M17.11 Unilateral primary osteoarthritis, right knee (principal) | CPT/HCPCS: 20610; 99202; J0665; J1100 ==

== ENCOUNTER 2023-11-29 08:04 | Outpatient (AMB) | payer MEDICARE, SELFPAY ==
--- NOTE | 2023-11-29 08:42 | AM.OFFWIN_ITS ---
Intake Vital Signs 11/29/23 08:43 Height 6 ft Weight 201 lb BMI 27.3 BP 116/70 Blood Pressure Location Rt brachial Position Sitting Pulse 64 Pulse Source Pulse Oximeter Temp 97.9 F Temp Source Oral Pulse Oximetry (%) 98 Oxygen Delivery Method Room Air Intake Visit Reasons: EP RT side chest pain ?cracked rib Intake Note: pt c/o RT side chest pain. ? Cracked rib. Started last Monday. Was working above head and felt pain Patient Tobacco Use Status: Never used Tobacco Allergies prednisone Adverse Reaction (Mild, Verified 11/29/23 08:45) chest tightness, hard to breathe Lisinopril Allergy (Severe, Uncoded 11/29/23 08:45) Angioedema Do you need a note to return to daycare/school/sports/work: No HPI HPI Comments History of Present Illness Details Patient is a 68-year-old male complaining of 5 days of right-sided chest pain since holding up a ernesto to sand a ceiling. He states as he was standing, he was moving back and forth back and forth for a long time and then when he went to put the Michelle down he felt the pain on the right side of his chest. He states when he pushes on it he can reproduce the pain. He is not sure if it is a cracked rib or a pulled muscle or ligament or something but he wanted to get it checked out because it is persistent. He is on a blood thinner so he can only take Tylenol for pain which she has been taking with no relief. [facility] Medical History Right wrist pain Upper respiratory tract infection Cough HTN (hypertension) Aortic aneurysm Osteoarthritis of right knee Right knee pain Surgical History History of inguinal hernia repair History of appendectomy H/O arthroscopic knee surgery Family History Father CHF (congestive heart failure) Mother No problems noted. 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[employer] Current occupational exposures/hazards: No Cognitive needs: No Hearing needs: No Vision needs: No Review of Systems Const All systems reviewed & are unremarkable except as noted in HPI and below Physical Exam Vital Signs: Last Vital Signs Temp 97.9 F 11/29/23 08:43 Pulse 64 11/29/23 08:43 BP 116/70 11/29/23 08:43 Pulse Ox 98 11/29/23 08:43 Oxygen Delivery Method Room Air 11/29/23 08:43 BMI result Body Mass Index 27.3 Const General: cooperative, healthy appearing, comfortable, no acute distress and well developed Orientation/consciousness: patient oriented x3 Limitations: no limitations HEENT Head: Yes normal to inspection Ears: hearing grossly normal bilaterally General nose exam: Normal external nose present Face and sinus: Yes normal facial exam Eyes General: appearance normal, both eyes and all related structures Neck Neck: Yes normal visual inspection and Yes full ROM Chest Chest palpation & inspection: tenderness other (TTP in between ribs, right-sided 6th rib mid clavicular area extending to anterior axillary line) Resp Effort & Inspection: normal respiratory effort and able to speak in complete sentences Skin General skin exam: no rashes or lesions noted Neuro General: patient oriented x3 Extrem General: Yes normal to inspection Assessment & Plan Assessment & Plan (1) Intercostal muscle strain: Code(s): S29.011A - Strain of muscle and tendon of front wall of thorax, initial encounter Qualifiers: Encounter type: initial encounter Qualified Code(s): S29.011A - Strain of muscle and tendon of front wall of thorax, initial encounter Plan: Recommended patient use ice, rest and Voltaren gel or other [id number] medications. No indication for an x-ray because there was no trauma and very low likelihood of a rib fracture. Plan See above Coding Level of Care Code Est Pt Level 3 (85269) Diagnoses Intercostal muscle strain, initial encounter S29.011A Encounter type: initial encounter
[2023-11-29 08:43] VITALS: BP 116/70; PULSE 64; TEMP 36.6; O2SAT 98; BMI 27.3
== END 2023-11-29 12:48 | disposition home or self-care (01) ==
PROVIDERS: PCP Family Medicine; Visit Provider Physician Assistant
DX: S29.011A Strain of muscle and tendon of front wall of thorax, initial encounter (principal)

== ENCOUNTER → 2023-11-29 08:04 | Outpatient (BNVA) | payer MEDICARE, SELFPAY | PROVIDERS: PCP Family Medicine | DX: S29.011A Strain of muscle and tendon of front wall of thorax, initial encounter (principal) | CPT/HCPCS: 99212 ==

== ENCOUNTER 2024-01-02 08:23 | Outpatient (AMB) | payer MEDICARE, SELFPAY ==
--- NOTE | 2024-01-02 08:24 | A.OFFPC_ITS ---
Vital Signs 01/02/24 08:27 Height 6 ft Weight 208 lb 8 oz BMI 28.3 BP 122/78 Blood Pressure Location Lt brachial Position Sitting Respiration 14 Pulse 68 Pulse Source Pulse Oximeter Temp 97.7 F Temp Source Oral Pulse Oximetry (%) 95 Oxygen Delivery Method Room Air Intake Visit Reasons: f/u hypertension Intake Note: follow up on hypertension Allergies prednisone Adverse Reaction (Mild, Verified 01/02/24 08:27) chest tightness, hard to breathe Lisinopril Allergy (Severe, Uncoded 11/29/23 08:45) Angioedema Tobacco use date assessed: 10/04/23 Dental Screening Dental Screen Date: 10/04/23 HPI f/u hypertension HPI Details 68 y/o male presents today to f/u hypert ension. Blood pressure today 149/79, 68p. He is on hydrochlorothiazide 25mg, amlodipine 5mg daily. Blood pressure on relaxation 122/78. Notes hydrochlorothiazide has been keeping him up at night and frequently urinates 2-3x a night. He takes this in the morning. He reports shoulder and neck pain today. [facility] Medical History Right wrist pain Upper respiratory tract infection Cough HTN (hypertension) Aortic aneurysm Osteoarthritis of right knee Right knee pain Surgical History History of inguinal hernia repair History of appendectomy H/O arthroscopic knee surgery Family History Father CHF (congestive heart failure) Mother No problems noted. 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: [employer] Current occupational exposures/hazards: No Cognitive needs: No Hearing needs: No Vision needs: No Questionnaire Thrive Questionnaire Date Thrive assessed: 04/19/23 KEITH-7 AMB Questionnaire KEITH-7 Date KEITH - 7 assessed: 04/19/23 Source: Developed by Drs. Tyler Johnson, Orly Parker, Ankit Banda and colleagues, with an educational simone from [employer]. Review of Systems Const Denies chills, Denies fatigue, Denies fever(s), Denies headache(s) and Denies weakness ENT Denies dizziness and Denies headache(s) Card Denies dyspnea Resp Denies cough, Denies dyspnea, Denies wheezing and Denies other (shortness of breath) Musc Details: Shoulder pain Denies numbness and Denies tingling Neuro Denies dizziness, Denies headache(s), Denies numbness, Denies tingling and Denies weakness Psych Denies anxiety and Denies depression Endo Denies fatigue Aller/Immun Denies wheezing Physical exam (Primary Care) Vital Signs: Last Vital Signs Temp 97.7 F 01/02/24 08:27 Pulse 68 01/02/24 08:27 Resp 14 01/02/24 08:27 BP 149/79 H 01/02/24 08:27 Pulse Ox 95 01/02/24 08:27 Oxygen Delivery Method Room Air 01/02/24 08:27 BMI result Body Mass Index 28.3 Tobacco/Smoking Status: Tobacco use Status Tobacco use date assessed 10/04/23 01/02/24 08:26 Patient Tobacco Use Status Never used Tobacco 01/02/24 08:26 e-Cigarette/Vaping Use Never Used 01/02/24 08:26 Thrive Assessment: Date of Thrive Assessment Date Thrive assessed 04/19/23 01/02/24 08:26 Const General: well developed; No acute distress Nutritional Appearance: well nourished Orientation/consciousness: patient oriented x3 HENMT Head: Yes normocephalic and Yes atraumatic Eyes General: appearance normal, both eyes and all related structures Pupils: Equal, round and reactive pupils present EOM: EOMs intact bilaterally Resp Effort & Inspection: normal respiratory effort Neuro General: patient oriented x3 and gait normal Cranial nerves: Yes Equal, round and reactive pupils present Psych Affect: normal affect Coding Level of Care Code Est Pt Level 4 (59480) Diagnoses Essential hypertension I10 Aortic aneurysm I71.9 Shoulder pain M25.519 Cervicalgia M54.2 Knee pain M25.569 Assessment & Plan Assessment & Plan (1) Essential hypertension: Comment: Blood pressure goal is less than 120/70 due to aortic aneurysm Code(s): I10 - Essential (primary) hypertension Category: Medical Plan: Blood?pressure?is?fairly?well?controlled. Goal?is?less?than?120/70?as?recommended?by?Cardiology Continue?current?medication?regimen?and?work?at?a?diet?low?in?salt/sodium (2) Aortic aneurysm: Comment: Blood pressure goal is less than 120/70 due to aortic aneurysm Code(s): I71.9 - Aortic aneurysm of unspecified site, without rupture Category: Medical Plan: Stable Follow-up?with?Cardiology?as?recommended (3) Shoulder pain: Code(s): M25.519 - Pain in unspecified shoulder Category: Medical Plan: Left?shoulder?pain?and?pain?with?abduction?past?90?degrees?and?pain?with?interna l?rotation. Concern?for?rotator?cuff?strain Patient?also?has?tension?in?trapezius?muscle?and?left?side?of?neck Will?start?physical?therapy Also?advised?ice/heat?and?can?use?Tylenol?or?Advil. If?not?improving?will?image?and?consider?referral?to?Ortho (4) Cervicalgia: Code(s): M54.2 - Cervicalgia Category: Medical Plan: As Above (5) Knee pain: Code(s): M25.569 - Pain in unspecified knee Category: Medical Plan: Recent?injection?therapy.??Patient?says?it?helped?for?a?few?weeks He?is?already?discuss?this?with?ortho?and?will?get?another?injection?when?he?is? due Hopefully?2nd?injection?will?help?more Follow-up?with?ortho?as?recommended
[2024-01-02 08:27] VITALS: BP 122/78; PULSE 68; RESP 14; TEMP 36.5; O2SAT 95; BMI 28.3
== END 2024-01-02 09:02 | disposition home or self-care (01) ==
LOC: HO.HMCFM 08:23
PROVIDERS: PCP Family Medicine; Visit Provider Family Medicine
DX: I10 Essential (primary) hypertension (principal); I71.9 Aortic aneurysm of unspecified site, without rupture; M25.519 Pain in unspecified shoulder; M54.2 Cervicalgia; M25.569 Pain in unspecified knee

== ENCOUNTER 2024-01-02 09:04 | Outpatient (REF) | payer MEDICARE, SELFPAY ==
[2024-01-02 11:30] LABS: MANUAL DIFF FLAG NO
[2024-01-02 11:52] LABS: Basophils Absolute Auto 0.1 X10*3/uL (0.0-0.2); Basophils Percent Auto 1.1 % (0-2); Eosinophils Absolute Auto 0.5 X10*3/uL (0.0-0.4); Eosinophils Percent Auto 8.9 % (0-4); Hematocrit 47.8 % (42.0-52.0); Hemoglobin 16.3 g/dl (14.0-18.0); Imm Gran Abs Auto 0.02 X10*3/uL (0.00-0.03); Imm Gran Pct Auto 0.4 % (0.0-0.4); Lymphocytes Absolute Auto 1.2 X10*3/uL (1.2-4.9); Lymphocytes Percent Auto 22.6 % (20-40); Mean Corpuscular HGB Conc 34.1 g/dl (31.0-36.0); Mean Corpuscular Hemoglobin 31.2 pg (27.0-33.0); Mean Corpuscular Volume 91.6 fL (80.0-98.0); Mean Platelet Volume 9.6 fL (9.4-12.4); Monocytes Absolute Auto 0.7 X10*3/uL (0.1-1.2); Monocytes Percent Auto 13.1 % (2-11); Neutrophils Absolute Auto 2.9 x10*3/uL (2.0-8.3); Neutrophils Percent Auto 53.9 % (45-73); Platelet Count 250 X10*3/uL (160-400); Red Blood Count 5.22 X10*6/uL (4.60-5.80); Red Cell Distribution Width 12.1 % (11.0-16.0); White Blood Count 5.4 X10*3/uL (4.8-10.8)
[2024-01-02 12:19] LABS: Alanine Aminotransferase 53 U/L (0-40); Albumin Level 4.7 g/dL (3.5-5.0); Alkaline Phosphatase 61 U/L (39-117); Anion Gap 15 (12-20); Aspartate Amino Transferase 43 U/L (5-37); Bilirubin Total 0.7 mg/dL (0.0-1.0); Blood Urea Nitrogen 14 mg/dL (9-16); Calcium 9.8 mg/dL (8.4-10.2); Carbon Dioxide 30 mmol/L (22-29); Chloride 101 mmol/L (96-108); Estimated Glomerular Filt Rate > 60; Glucose Random 87 mg/dL (60-115); Potassium 4.3 mmol/L (3.3-5.1); Sodium 142 mmol/L (135-145); Total Protein 7.7 g/dL (6.5-8.0)
== END 2024-01-02 09:05 | disposition home or self-care (01) ==
LOC: HO.WFDLDS 09:04
PROVIDERS: Visit Provider Family Medicine
DX: I10 Essential (primary) hypertension (principal); M25.519 Pain in unspecified shoulder; M54.2 Cervicalgia; I71.9 Aortic aneurysm of unspecified site, without rupture; M25.569 Pain in unspecified knee; Z79.899 Other long term (current) drug therapy; Z00.00 Encounter for general adult medical examination without abnormal findings; D64.9 Anemia, unspecified
CPT/HCPCS: 36415; 80053; 85025; 99212

== ENCOUNTER 2024-04-04 08:24 | Outpatient (AMB) | payer MEDICARE, SELFPAY ==
--- NOTE | 2024-04-04 08:36 | A.OFFPC_ITS ---
Vital Signs 04/04/24 08:41 Height 6 ft Weight 220 lb BMI 29.8 BP 120/70 Blood Pressure Location Lt brachial Position Sitting Respiration 14 Pulse 71 Pulse Source Pulse Oximeter Temp 97.6 F Temp Source Oral Pulse Oximetry (%) 94 Oxygen Delivery Method Room Air Intake Visit Reasons: f/u hypertension Intake Note: f/u up for htn Allergies prednisone Adverse Reaction (Mild, Verified 04/04/24 08:38) chest tightness, hard to breathe Lisinopril Allergy (Severe, Uncoded 11/29/23 08:45) Angioedema Tobacco use date assessed: 10/04/23 Dental Screening Dental Screen Date: 10/04/23 HPI f/u hypertension HPI Details 68 y/o male presents to f/u hypertension . Goal less than 120/70 per caridology due to aortic aneurysm. L shoulder and neck pain and had referred him for physical therapy. Recent labs reviewed. Mild anemia resolved. AST 43. ALT 53. He had gained some weight since December. Blood pressure today 120/70, 71p. HPI Comments History of Present Illness Details Documentation assistance for Dewayne Cardona MD, was provided by Dylan Mendoza,? [employer] on 04/04/2024 at 8:53 AM EST. I, Dr. Cardona, have read, observed, and verified documentation. ?? PFS Medical History Right wrist pain Upper respiratory tract infection Cough HTN (hypertension) Aortic aneurysm Osteoarthritis of right knee Right knee pain Surgical History History of inguinal hernia repair History of appendectomy H/O arthroscopic knee surgery Family History Father CHF (congestive heart failure) Mother No problems noted. 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: [employer] Current occupational exposures/hazards: No Cognitive needs: No Hearing needs: No Vision needs: No Questionnaire Thrive Questionnaire Date Thrive assessed: 04/19/23 KEITH-7 AMB Questionnaire KEITH-7 Date KEITH - 7 assessed: 04/19/23 Source: Developed by Drs. Tyler Johnson, Orly Parker, Ankit Banda and colleagues, with an educational simone from [employer]. Review of Systems Const Denies chills, Denies fatigue, Denies fever(s), Denies headache(s) and Denies weakness ENT Denies dizziness and Denies headache(s) Card Denies dyspnea Resp Denies cough, Denies dyspnea, Denies wheezing and Denies other (shortness of breath) Musc Denies numbness and Denies tingling Neuro Denies dizziness, Denies headache(s), Denies numbness, Denies tingling and Denies weakness Psych Denies anxiety and Denies depression Endo Denies fatigue Aller/Immun Denies wheezing Physical exam (Primary Care) Vital Signs: Last Vital Signs Temp 97.6 F 04/04/24 08:41 Pulse 71 04/04/24 08:41 Resp 14 04/04/24 08:41 BP 120/70 04/04/24 08:41 Pulse Ox 94 04/04/24 08:41 Oxygen Delivery Method Room Air 04/04/24 08:41 BMI result Body Mass Index 29.8 Tobacco/Smoking Status: Tobacco use Status Tobacco use date assessed 10/04/23 04/04/24 08:37 Patient Tobacco Use Status Never used Tobacco 04/04/24 08:37 e-Cigarette/Vaping Use Never Used 04/04/24 08:37 Thrive Assessment: Date of Thrive Assessment Date Thrive assessed 04/19/23 04/04/24 08:37 Const General: well developed; No acute distress Nutritional Appearance: well nourished Orientation/consciousness: patient oriented x3 HENMT Head: Yes normocephalic and Yes atraumatic Eyes General: appearance normal, both eyes and all related structures Pupils: Equal, round and reactive pupils present EOM: EOMs intact bilaterally Resp Effort & Inspection: normal respiratory effort Neuro General: patient oriented x3 and gait normal Cranial nerves: Yes Equal, round and reactive pupils present Psych Affect: normal affect Coding Level of Care Code Est Pt Level 4 (12661) Diagnoses Essential hypertension I10 Mild anemia D64.9 Elevated liver enzymes R74.8 Screening for prostate cancer Z12.5 Hyperlipidemia E78.5 Deviated septum J34.2 Assessment & Plan Assessment & Plan (1) Essential hypertension: Comment: Blood pressure goal is less than 120/70 due to aortic aneurysm Code(s): I10 - Essential (primary) hypertension Category: Medical Plan: Blood?pressure?is?controlled.??Goal?is?120/70?or?lower. Continue?current?medication (2) Mild anemia: Code(s): D64.9 - Anemia, unspecified Category: Medical Plan: This?has?resolved Will?monitor?periodically (3) Elevated liver enzymes: Code(s): R74.8 - Abnormal levels of other serum enzymes Category: Medical Plan: Liver?enzymes?are?mildly?elevated?and?this?is?a?change?from?prior?lab?work?i n?the?summer. Concurrently,?patient?has?gained?about?20?lb?since?this?summer Encouraged?weight?loss Will?recheck?in?a?few?months (4) Screening for prostate cancer: Code(s): Z12.5 - Encounter for screening for malignant neoplasm of prostate Category: Medical Plan: PSA?a?year?ago?was?within?normal?limits Patient?requests?repeat?testing-ordered (5) Hyperlipidemia: Code(s): E78.5 - Hyperlipidemia, unspecified Category: Medical Plan: Patient?on?simvastatin?and?would?like?to?change?this?to?atorvastatin.??Ordered Will?recheck?lipids?to?ensure?good?control?at?next?visit. (6) Deviated septum: Code(s): J34.2 - Deviated nasal septum Category: Medical Plan: Followed?by?ENT,??Luz Marina Encouraged?him?to?follow-up?as?recommended Orders: Orders Comprehensive [place]. Panel Fast Today R74.8 - Abnormal levels of other serum enzymes, Z00.00 - Encounter for general adult medical examination without abnormal findings Prostate Specific Antigen Scr Today Z12.5 - Encounter for screening for malignant neoplasm of prostate Lipid Panel Today I71.9 - Aortic aneurysm of unspecified site, without rupture, Z00.00 - Encounter for general adult medical examination without abnormal findings Microalbumin, Random (w Creat) Today I10 - Essential (primary) hypertension Medications: New atorvastatin 20 mg PO BEDTIME 90 days 90 tabs 3RF Discontinued simvastatin Discontinued Reason: Doctor's Order 40 mg PO BEDTIME 90 tabs 2RF
[2024-04-04 08:41] VITALS: BP 120/70; PULSE 71; RESP 14; TEMP 36.4; O2SAT 94; BMI 29.8
--- OUTSIDE RECORDS SUMMARY | 2024-04-04 11:14 | XMS_ITS ---
Author Organization [facility] Address [address] [place] [address] Care Team Providers Care Cooperative Education Coordinator Name Role Phone Dewayne Cardona Primary Care Provider Unavailab Tyler Felix Unavailable [phone] REASON FOR VISIT ? why Congo Red stain? Encounters Encounter Location Date Provider Diagnosis [facility] [address] [place] [address] 09/16/2023 Tyler Walters PLAN OF TREATMENT No Information
--- OUTSIDE RECORDS SUMMARY | 2024-04-04 11:14 | XMS_ITS | Patient Health Record ---
Author Organization [facility] Address [address] [place] [address] Care Team Providers Care Medical Photographer Name Role Phone Brendan, Dewayne Primary Care Provider UnavailTyler Cervantes Unavailable [phone] ALLERGIES No Known Allergies RESULTS Component Value Reference Range Notes Pathology Reviewed date:09/16/2023 07:37:43 PM Interpretation: Performing Lab:[facility], [address] [place] [id number] Notes/Report: REASON FOR REFERRAL No Information MEDICATIONS Medication SIG (Take, Route, Frequency, Duration) Notes [...] 100 MCG as directed Orally 08/22/2023 Active Simvastatin 40 MG 1 tablet in the even ing Orally Once a day Active hydroCHLOROthiazide 25 MG 1 tablet in th e morning Orally Once a day Active IMMUNIZATIONS Vaccine Route Administration Date Status Comme nts Influenza Unknown 11/04/2017 Administered Influenza Unknown 08/22/2023 Refused SOCIAL HISTORY Tobacco Use: Social History Observation Description Date Details (start date - stop date) Never Smoker NA - NA Sex Assigned At : Social History Observation Description Sex Assigned At Unknown Tobacco Use/Smoking Question Answer Notes Patient is [...] Never (0 point) Points 0 Interpretation Negative PROBLEMS Problem Type ICD Code Onset Dates Problem Status W/U Status Risk SNOMED Code Notes Problem Encounter for screening for malignant neoplasm of colon (Z12.11) Active confirmed 783755143 Problem Preprocedural examination (Z01.818) Active confirmed [id number] Problem Dysphagia (R13.10) Active confirmed Dysphagia (30760307) Problem Abdominal pain, acute, generalized (R10.84) Active confirmed Generalized abdominal pain (400108783) Problem Recent change in frequency of bowel movements (R19.4) Active confirmed Change in bowel habit (12613068) Problem Esophageal obstruction (K22.2) Active confirmed Stricture of esophagus (94797467) Problem Esophageal stricture (K22.2) Active confirmed Esophageal stricture (39219533) VITAL SIGNS Temperature 99.1 degrees Fahrenheit 08/22/2023 Blood pressure diastolic 00 mm Hg 01/30/2024 Height 73 in 01/30/2024 Blood pressure systolic 00 mm Hg 01/30/2024 Weight 205 lbs 01/30/2024 BMI 27.04 kg/m2 01/30/2024 Encounters Encounter Location Date Provider Diagnosis [facility] [place] [address] [place] [phone] 08/28/2023 Tyler Walters Esophageal obstruction K22.2 ; Dysphagia R13.10 and Hiatal hernia K44.9 [facility] [address] [place] [address] 08/22/2023 Tyler Walters Dysphagia R13.10 ; Abdominal pain, acute, generalized R10.84 and Recent change in frequency of bowel movements R19.4 [facility] [address] [place] [phone] 01/30/2024 Tyler Walters Esophageal stricture K22.2 and Encounter for screening for malignant neoplasm of colon Z12.11 [facility] [address] [place] [phone] 08/28/2023 Tyler Walters [facility] [address] [place] [phone] 09/04/2023 Tyler Walters [facility] [address] [place] [phone] 09/16/2023 Tyler Walters ASSESSMENTS Encounter Date Diagnosis Assessment Notes Treatment Notes Treatment Clinical Notes 08/28/2023 Dysphagia (ICD-10 - R13.10) 08/28/2023 Esophageal obstruction (ICD-10 - K22.2) 08/22/2023 Dysphagia (ICD-10 - R13.10) Stop aspirin for 1 week before the procedure 08/22/2023 Abdominal pain, acute, generalized (ICD-10 - R10.84) 01/30/2024 Encounter for screening for malignant neoplasm of colon (ICD-10 - Z12.11) Repeat colonoscopy in 202801/30/2024 Esophageal stricture (ICD-10 - K22.2) Call me if you develop trouble swallowing and/or increasing heartburn symptoms 08/28/2023 Hiatal hernia (ICD-10 - K44.9) 08/22/2023 Recent change in frequency of bowel movements (ICD-10 - R19.4) PLAN OF TREATMENT Future Test Test Name Order Date COLONOSCOPY 09/27/2018 UPPER GI ENDOSCOPY [place] DILATION OF ESOPH 08/22/2023 Insurance Providers Payer Name Payer Address Payer Phone Subscriber Number Group Number Insured Name Patient Relationship to Insured Coverage Start Date Coverage End Date MEDICARE OF [place] [address] [place] [address] [phone] [id number] Armani Perry Self - patient is the insured MED[employer] ATTN CLAIMS [address] [place] [phone] [id number] Armani Perry Self - patient is the insured MEDICAL (GENERAL) HISTORY Medical History History ICD Code Hypertension Thoracic aortic aneursym 4.4cm--being fo llowed by [facility] cardiothoracic Hyperlipidemia Denies WA,DM,CVA,Lung disease,renal dise ase Neg. screening colonoscopy in 01/2019 Esophageal stricture--upper endoscopy in August of 2023 revealed a fibrotic esophageal stricture which was dilated successfully up to a 19 mm balloon with good results. There was no evidence of any esophagitis and he did not want to take any acid suppression as he was otherwise asymptomatic. Biopsies were negative for Haskins's esophagus. He does have a small hiatal hernia. Surgical History Surgery Date(Month/Year) Appendectomy Knee
--- OUTSIDE RECORDS SUMMARY | 2024-04-04 11:14 | XMS_ITS ---
Author Organization [facility] Address [address] [place] [address] Care Team Providers Care Cardiopulmonary Technologist Name Role Phone Dewayne Cardona Primary Care Provider Unavailab Tyler eFlix Unavailable [phone] Encounters Encounter Location Date Provider Diagnosis [facility] [address] [place] [address] 09/04/2023 Tyler Walters PLAN OF TREATMENT No Information
--- OUTSIDE RECORDS SUMMARY | 2024-04-04 11:14 | XMS_ITS ---
Author Organization [facility] Address [address] [place] [address] Care Team Providers Care Money Order Clerk Name Role Phone Dewayne Cardona Primary Care Provider Unavailab Tyler Felix Unavailable [phone] ALLERGIES No Known Allergies REASON FOR VISIT dysphagia, esophageal stricture MEDICATIONS Medication SIG (Take, Route, Frequency, Duration) [...] even ing Orally Once a day Active SOCIAL HISTORY Tobacco Use: Social History Observation [...] W/U Status Risk SNOMED Code Notes Problem Esophageal stricture (K22.2) Active confirmed Esophageal stricture (30293413) VITAL SIGNS BMI 27.04 kg/m2 01/30/2024 Blood pressure systolic 00 mm Hg 01/30/20 24 Blood pressure diastolic 00 mm Hg 024 Height 73 in 01/30/2024 Weight 205 lbs 01/30/2024 Encounters Encounter Location Date Provider Diagnosis [facility] [address] [place] [address] 01/30/2024 Tyler Walters Esophageal stricture K22.2 and Encounter for screening for malignant neoplasm of colon Z12.11 ASSESSMENTS Encounter Date Diagnosis Assessment Notes Treatment Notes Treatment Clinical Notes 01/30/2024 Esophageal stricture (ICD-10 - K22.2) Call me if you develop trouble swallowing and/or increasing heartburn symptoms 01/30/2024 Encounter for screening for malignant neoplasm of colon (ICD-10 - Z12.11) Repeat colonoscopy in 2028 PLAN OF TREATMENT Treatment Notes Assessment Notes Esophageal stricture Call me if you deve lop trouble swallowing and/or increasing heartburn symptoms Encounter for screening for malignant neoplasm of colon Repeat colonoscopy in 2028 Next Appt Details Follow Up: prn, Reason: Progress Notes * Examination Category Sub-Category Detail Notes General Examination GENERAL APPEARANCE: pleasant , well [...]
== END 2024-04-04 09:11 | disposition home or self-care (01) ==
PROVIDERS: PCP Family Medicine; Visit Provider Family Medicine
DX: I10 Essential (primary) hypertension (principal); D64.9 Anemia, unspecified; R74.8 Abnormal levels of other serum enzymes; Z12.5 Encounter for screening for malignant neoplasm of prostate; E78.5 Hyperlipidemia, unspecified; J34.2 Deviated nasal septum

== ENCOUNTER → 2024-04-04 08:24 | Outpatient (BNVA) | payer MEDICARE, SELFPAY | PROVIDERS: PCP Family Medicine; Visit Provider Family Medicine | DX: I10 Essential (primary) hypertension (principal); D64.9 Anemia, unspecified; R74.8 Abnormal levels of other serum enzymes; E78.5 Hyperlipidemia, unspecified; J34.2 Deviated nasal septum | CPT/HCPCS: 99212 ==

== ENCOUNTER 2024-05-15 08:48 | Outpatient (REF) | payer MEDICARE, SELFPAY ==
[2024-05-15 12:13] LABS: Influenza A PCR NEGATIVE (Negative); Influenza B PCR NEGATIVE (Negative); Resp Syncy Virus RNA Qual PCR NEGATIVE (Negative); SARS COV2 PCR INHOUSE NEGATIVE (Negative)
== END 2024-05-15 08:49 | disposition home or self-care (01) ==
LOC: HO.LAB 08:48
PROVIDERS: Physician Assistant; PCP Family Medicine
DX: B34.9 Viral infection, unspecified (principal); R09.89 Other specified symptoms and signs involving the circulatory and respiratory systems; R05.8 Other specified cough
CPT/HCPCS: 0241U; 99212

== ENCOUNTER 2024-05-15 08:48 | Outpatient (AMB) | payer MEDICARE, SELFPAY ==
[2024-05-15 09:09] VITALS: BP 140/80; PULSE 71; TEMP 36.6; O2SAT 98; BMI 28.7
--- NOTE | 2024-05-15 09:09 | MHC.OFFWIV ---
Intake Vital Signs 05/15/24 09:09 Height 6 ft Weight 211 lb 6 oz BMI 28.7 BP 140/80 H Blood Pressure Location Lt brachial Position Sitting Pulse 71 Pulse Source Pulse Oximeter Temp 97.8 F Temp Source Oral Pulse Oximetry (%) 98 Oxygen Delivery Method Room Air Intake Visit Reasons: EP Body aches, sob, headaches, fatigue Intake Note: Patient here for body aches, SOB, headache and fatigue that has been present for about 4-5 days. Patient Tobacco Use Status: Never used Tobacco Allergies prednisone Adverse Reaction (Mild, Verified 05/15/24 09:15) chest tightness, hard to breathe Lisinopril Allergy (Severe, Uncoded 05/15/24 09:15) Angioedema Do you need a note to return to daycare/school/sports/work: No HPI HPI Comments History of Present Illness Details History - The patient is a 69-year-old male presenting fatigue, generalized musculoskeletal pain, shortness of breath without fever, and a productive cough with white sputum, persisting for one week. - Previous blood pressure level was typically 120/70 mmHg, elevated to 140/100 mmHg upon initial assessment, likely elevated due to illness-related stress. Reports no increase in salt intake. Re-take of BP at end of visit was 140/80. - Denies hx of COPD or asthma. - had RSV previously but currently is asymptomatic for its recurrence. - Has not taken any meds to treat his symptoms - Denies ear or sinus pain. Physical Exam General: Cooperative, healthy appearing, comfortable and no acute distress Orientation/consciousness: Patient oriented x3 Limitations: No limitations Head: Normal to inspection Ears: Hearing grossly normal bilaterally, external ears normal and TM's normal bilaterally Nose: Normal external nose present, Normal nares present and No nasal discharge present Face and sinus: Normal facial exam and Yes sinuses nontender Mouth: Normal oral and palatal mucosa present and moist mucous membranes Throat: Yes tonsils normal, Yes uvula midline. Posterior oropharynx erythema Eyes: Appearance normal, both eyes and all related structures Neck: Normal visual inspection Respiratory: Clear to auscultation bilaterally. Normal respiratory effort, able to speak in complete sentences, no respiratory distress, not tachypneic, no tripod positioning and no use of accessory muscles Cardiovascular: Regular rate and rhythm. Normal S1 and S2 Skin: No rashes or lesions noted Neuro: Patient oriented x3 Extremities: Normal to inspection and Yes no clubbing, cyanosis or edema PFSH Medical History Right wrist pain Upper respiratory tract infection Cough HTN (hypertension) Aortic aneurysm Osteoarthritis of right knee Right knee pain Surgical History History of inguinal hernia repair History of appendectomy H/O arthroscopic knee surgery Family History Father CHF (congestive heart failure) Mother No problems noted. 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: [employer] Current occupational exposures/hazards: No Cognitive needs: No Hearing needs: No Vision needs: No Review of Systems Const All systems reviewed & are unremarkable except as noted in HPI and below Physical Exam Vital Signs: Last Vital Signs Temp 97.8 F 05/15/24 09:09 Pulse 71 05/15/24 09:09 BP 140/80 H 05/15/24 09:09 Pulse Ox 98 05/15/24 09:09 Oxygen Delivery Method Room Air 05/15/24 09:09 BMI result Body Mass Index 28.7 Assessment & Plan Assessment & Plan (1) Acute viral syndrome: Code(s): B34.9 - Viral infection, unspecified Plan: VSS, pt well appearing and PE unremarkable. The patient's presentation is suggestive of an influenza infection, supported by symptoms and evaluated through concurrent testing for influenza, COVID-19, and RSV. Symptomatic relief through non-prescription analgesics, antihistamines, and decongestants was discussed. Antiviral treatment was deemed unsuitable due to the late presentation of symptoms, aligning with current medical standards. Emphasis on fluid intake and rest was recommended to aid recovery. The elevated blood pressure is suspected to be illness-induced, with recommendations for sodium intake reduction and an observation period to reassess post-recovery. Communication of test results will follow as per routine procedure. Patient was informed and verbally consented to the use of an ambient scribe for clinic note documentation during this visit Orders: Orders SARS-CoV2/FLU/RSV Today R09.89 - Other specified symptoms and signs involving the circulatory and respiratory systems Coding Level of Care Code Est Pt Level 3 (23211) Diagnoses Acute viral syndrome B34.9
--- OUTSIDE RECORDS SUMMARY | 2024-05-15 09:19 | XMS_ITS ---
Author Organization [facility] Address [address] [place] [address] Care Team Providers Care Digital Camera Technician Name Role Phone Dewayne Cardona Primary Care Provider Unavailab Tyler Felix [phone] Encounters Encounter Location Date Provider Diagnosis [facility] [address] [place] [address] 09/04/2023 Tyler Walters Plan Of Treatment No Information Progress Notes * Armani PIMENTELDOB:1955 (68 yo M)Acc No.[id number]:09/04/2023 Patient:?Armani Pimentel :1955???Age:68 Y???Sex:Male Address:[address] [place], [address] * true * Date:? Generated for Candice unger/Miya/eTransmitting on:?05/15/2024 09:19 AM EDT
--- OUTSIDE RECORDS SUMMARY | 2024-05-15 09:19 | XMS_ITS ---
Author Organization [facility] Address [address] [place] [address] Care Team Providers Care Manager Nc Name Role Phone Dewayne Cardona Primary Care Provider Unavailab Tyler Felix Unavailable [phone] Allergies No Known Allergies REASON FOR VISIT [...] W/U Status Risk Notes Problem Esophageal stricture (07891399) Esophageal stricture (K22.2) Active confirmed Vital Signs Blood pressure systolic 00 mm Hg 01/30/20 24 Blood pressure diastolic 00 mm Hg 024 Height 73 in 01/30/2024 Weight 205 lbs 01/30/2024 BMI 27.04 kg/m2 01/30/2024 Encounters Encounter Location Date Provider Diagnosis [facility] [address] [place] [address] 01/30/2024 Tyler Walters Esophageal stricture K22.2 and [...] Up: prn, Reason: Progress Notes * Armani PIMENTLEDOB:1955 (68 yo M)Acc No.[id number]:01/30/2024 Progress Notes Patient:?Armani Pimentel Provider:?Tyler Walters MD :1955???Age:68 Y???Sex:Male [place] e:01/30/2024 Address:[address] [place] [address] [facility] Pcp:Dewayne Cardona Subjective: * Chief Complaints: * ???Dysphagia, esophageal str icture * HPI: ???incontinence:? I saw Colten in followup today in regard to his history of an esophageal stricture and previous dysphagia. ?I last saw Colten in August, at which [...] was a smoker and drinker . * ROS:?General/Constitutional:?Change in appetite?denies.?Chills?denies.?Fatigue?denies.?Ophthalmologic:?Comments?all negative.?ENT:?Comments?all negative.?Respiratory:?hemoptysis?denies.?Cough?denies.?Cardiovascular:?Chest pain?denies.?Orthopnea?denies.?Gastrointestinal:?Comments?See HPI for details.?Genitourinary:?Hematuria?denies.?Dysuria?denies.?Musculoskeletal:?Painful joints?denies.?Weakness?denies.?Skin:?Itching?denies.?Rash?denies.?Neurologic:?Headache?denies.?Seizures?denies.?Psychiatric:?Comments?all negative.? * Medical History:? * Surgical History:?Appendecto my Knee * Hospitalization/Major Diagno stic Procedure:?No Hospitalization History. * Family History:?Father: dece ased 88 yrs, chf, diagnosed with Heart disease.?Mother: 96 yrs.? no known hx of colon cancer. Older brother had stomach cancer. No family history of liver cancer. * Social History:?Tobacco Use:?Tobacco Use/Smoking?Patient is a?nonsmoker.?Drugs/Alcohol:?Alcohol Screen?Did you have a drink containing alcohol in the past year??Yes,?How often did you have a drink containing alcohol in the past year??Never (0 point),?How many drinks did you have on a typical day when you were drinking in the past year??1 or 2 drinks (0 point),?How often did you have 6 or more drinks on one occasion in the past year??Never (0 point),?Points?0,?Interpretation?Negative.?Miscellaneous:?Marital status: single. 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 ???Nonsmoker; when out on the boat will have a six pack of beer occasionally. * Medications:?TakingSimvastat in 40 MG Tablet 1 tablet in the [...] reviewed and reconciled with the patient * Allergies:?N.K.D.A.yes[Aller gies Verified] Objective: * Vitals:?Wt: 205 lbs, Ht: 73 in, BMI:27.04 Index, BP: 00/00 mm Hg. * Examination: ???General Examination: ?GENERAL APPEARANCE:?pleasant, well nourished, well developed, in no acute distress.?EYES:?sclera non-icteric.?ORAL CAVITY:?mucosa moist.?NECK/THYROID:?no cervical lymphadenopathy, neck supple.?SKIN:?nonjaundiced, no spider angiomata.?HEART:?S1, S2 normal.?LUNGS:?clear to auscultation bilaterally.?ABDOMEN:?normal bowel sounds, no guarding or rigidity, no guarding or rigidity, no masses palpable, soft, nontender, nondistended.?EXTREMITIES:?no edema.?NEUROLOGIC:?alert and oriented.? Assessment: * Assessment: 1.?Esophageal stricture - K2 2.2 (Primary)?2.?Encounter for screening for malignant neoplasm of colon - Z12.11? Overall, Colten appears quite w ell. I [...] advised of his progress. Plan: * Treatment: 2.?Encounter for screening f or malignant neoplasm of colon? Notes: Repeat colonoscopy in 2028?? * Procedure Codes:?3017F COLOR ECTAL CA SCREEN DOC QHE7217I TOBACCO NON-QIGBD7068 P-HTN/HTN BP DOC F/U NOT RSN NOT GV * Preventive Medicine:? ??Counseling:?Care goal follow-up plan:?Above Normal BMI Follow-up?Giving encouragement to exercise,?BMI management provided?Yes.? ??Screenings:?Fall Risk Screening?Fall Risk Assessment:?No falls in the past year,?Screening:?No falls in the past year,?Assessment:?Not performed, no reason specified,?Plan of Care:?Not documented, no reason specified.? * Follow Up:?prn * * Sign off status: Completed true * Provider:?Tyler Walters MD Date:? 024 Generated for Candice unger/Miya/Chivo on:?05/15/2024 09:19 AM EDT History and Physical Notes * [...]
--- OUTSIDE RECORDS SUMMARY | 2024-05-15 09:20 | XMS_ITS ---
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 why Congo Red stain? Encounters Encounter Location Date Provider Diagnosis [facility] [address] [place] [address] 09/16/2023 Tyler Walters Plan Of Treatment No Information Progress Notes * Armani PIMENTELDOB:1955 (68 yo M)Acc No.[id number]:09/16/2023 Patient:?Armani Pimentel :1955???Age:68 Y???Sex:Male Address:[address] [place], [address] * true * Date:? Generated for Printi ng/Fahilaryg/eTransmitting on:?05/15/2024 09:19 AM EDT
--- OUTSIDE RECORDS SUMMARY | 2024-05-15 09:20 | XMS_ITS | Patient Health Record ---
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 Role Phone Dewayne Cardona Primary Care Provider Unavailab Tyler Felix Unavailable [phone] Allergies No Known Allergies Results Component Value Reference Range Notes Pathology Reviewed date:09/16/2023 07:37:43 PM Interpretation: Performing Lab:[facility], [address] [place] [address] Notes/Report: Name: Armani Perry Age/Sex: 68/M : 1955 Unit#: [id number] Attend Dr: Tyler Walters MD Re08/28/23 Status : [facility] Location: [place] Disch: SPEC : [id number] RECD : 08/28/23-3512 STATUS: JAIME DOMINGUEZ NUM: [id number] JAVIER: 08/28/23-[address] [facility] [address]: Tyler Walters MD ENTERED: 08/28/23-15 10 SP TYPE: Surgical OTHR DR: Dewayne Cardona MD ORDERED: HE Stain/3, Gross Micro L4, Congo red, Special st. 2/2, AB/PAS Addendum Addendum 1 Entered: 08/30/23-1723 Congo red stain is n egative for amyloid with appropriate control. Addendum Signed ____ __(signature on file) Riana [place] 08/30/23 172 Diagnosis Esophagogastric junc tion, at 38 cm, biopsy: Squamocolumnar mucosa with hyperplastic/regener ative changes, mild inflammation, and irregularly thickened and ectatic mucosal vess els suggesting arteriovenous malformation; negative for intestinal metaplasia and dysplasia. Clinical History Pre-Op Dx: Dysphagia Post-Op Dx: Hiatal h ernia, esophageal stricture Microscopic Description Microscopic sections reviewed. AB/PAS is negative for intestinal metaplasia. Controls stain appropriately. Congo red stain pend ing; addendum to follow. Material Received EG junction at 38 Gross Description Received in formalin labeled ?EG junction at 38? are 4 arteaga-pink irregular and rectangular tissue fragments ran ging from 0.15-0.45 cm, submitted in toto in a cassette labeled A. CEDS Special studies orde red and performed: AB/PAS and Congo Red on A1. 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 [address]: Tyler Walters MD ENTERED: 08/28/23-15 10 SP TYPE: Surgical OTHR DR: Dewayne Cardona MD ORDERED: HE Stain/3, Gross Micro L4, Congo red, Special st. 2/2, AB/PAS Copies To: Dewayne Cardona MD [facility] [address] [place] [address] Tyler Walters MD [facility] [address] [place] [address] [phone] Signed (si gnature on file) Riana Roland 08/29/23 181 END OF REPORT Reason For Referral No Information Medications Medication SIG (Take, Route, Frequency, Duration) [...] e morning Orally Once a day Active Immunizations Vaccine Route Administration Date Status Comme nts Influenza Unknown 11/04/2017 Administered Influenza Unknown 08/22/2023 Refused Social History Tobacco Use: Social History Observation [...] oat will have a six pack of beer. occasional Nonsmoker; when out on the b oat will have a six pack of beer occasionally Nonsmoker; when out on the b oat will have a six pack of beer occasionally Problems Problem Type SNOMED Code ICD Code Onset Dates Problem Status W/U Status Risk Notes Problem 904195146 Encounter for screening for malignant neoplasm of colon (Z12.11) Active confirmed Problem Dysphagia (10583041) Dysphagia (R13.10) Active confirmed Problem Stricture of esophagus (93243560) Esophageal obstruction (K22.2) Active confirmed Problem 013492412442648 Preprocedural examination (Z01.818) Active confirmed Problem Esophageal stricture (74355827) Esophageal stricture (K22.2) Active confirmed Problem Generalized abdominal pain (144670859) Abdominal pain, acute, generalized (R10.84) Active confirmed Problem Change in bowel habit (53539383) Recent change in frequency of bowel movements (R19.4) Active confirmed Vital Signs Temperature 99.1 degrees Fahrenheit 08/22/2023 Blood pressure diastolic 00 mm Hg 01/30/2024 Height 73 in 01/30/2024 Blood pressure systolic 00 mm Hg 01/30/2024 Weight 205 lbs 01/30/2024 BMI 27.04 kg/m2 01/30/2024 Encounters Encounter Location Date Provider Diagnosis [facility] Outpatient [address] [place] [phone] 08/28/2023 Tyler Walters Esophageal obstruction K22.2 ; Dysphagia R13.10 and Hiatal hernia K44.9 [facility] [address] [place] [address] 08/22/2023 Tyler Walters Dysphagia R13.10 ; Abdominal pain, acute, generalized R10.84 and Recent change in frequency of bowel movements R19.4 [facility] [address] [place] [address] 01/30/2024 Tyler Walters Esophageal stricture K22.2 and Encounter for screening for malignant neoplasm of colon Z12.11 [facility] [address] [place] [phone] 08/28/2023 Tyler Walters [facility] [address] [place] [address] 09/04/2023 Tyler Walters [facility] [address] [place] [phone] 09/16/2023 Tyler Walters Assessments Encounter Date Diagnosis (ICD Code) Assessment Notes Treatment Notes Treatment Clinical Notes Section Notes 08/28/2023 Dysphagia (ICD-10 - R13.10) 08/28/2023 Esophageal obstruction (ICD-10 - K22.2) 08/22/2023 Dysphagia (ICD-10 - R13.10) Stop aspirin for 1 week before the procedure Given Armani's significant dysphagia and some associated weight loss, I recommended an upper endoscopy in the near future to rule out any significant pathology such as esophagitis, esophageal stricture, or possible neoplasm. Depending upon the findings I will perform a balloon dilation to see if that can give him any symptomatic relief. He may also require initiation of a PPI after the procedure. Full consent was obtained from him for this, including risks of bleeding and perforation. He was advised to stop aspirin one week before the procedure. The procedure will be done with monitored anesthesia care. If the upper endoscopy is nonrevealing he may then require esophageal motility studies for further evaluation as well. Armani was comfortable with this plan. Thank you again for allowing me to participate in Armani's care. I shall continue to keep you advised of his progress. 08/22/2023 Abdominal pain, acute, generalized (ICD-10 - R10.84) Given Armani's significant dysphagia and some associated weight loss, I recommended an upper endoscopy in the near future to rule out any significant pathology such as esophagitis, esophageal stricture, or possible neoplasm. Depending upon the findings I will perform a balloon dilation to see if that can give him any symptomatic relief. He may also require initiation of a PPI after the procedure. Full consent was obtained from him for this, including risks of bleeding and perforation. He was advised to stop aspirin one week before the procedure. The procedure will be done with monitored anesthesia care. If the upper endoscopy is nonrevealing he may then require esophageal motility studies for further evaluation as well. Armani was comfortable with this plan. Thank you again for allowing me to participate in Aramni's care. I shall continue to keep you [...] keep you advised of his progress. 01/30/2024 Esophageal stricture (ICD-10 - K22.2) Call [...] to keep you advised of his progress. 08/28/2023 Hiatal hernia (ICD-10 - K44.9) 08/22/2023 Recent change in frequency of bowel movements (ICD-10 - R19.4) Given Armani's significant dysphagia and some associated weight loss, I recommended an upper endoscopy in the near future to rule out any significant pathology such as esophagitis, esophageal stricture, or possible neoplasm. Depending upon the findings I will perform a balloon dilation to see if that can give him any symptomatic relief. He may also require initiation of a PPI after the procedure. Full consent was obtained from him for this, including risks of bleeding and perforation. He was advised to stop aspirin one week before the procedure. The procedure will be done with monitored anesthesia care. If the upper endoscopy is nonrevealing he may then require esophageal motility studies for further evaluation as well. Armani was comfortable with this plan. Thank you again for allowing me to participate in Armani's care. I shall continue to keep you advised of his progress. Plan Of Treatment Future Test Test Name Order Date COLONOSCOPY 09/27/2018 UPPER GI ENDOSCOPY BALLOOON DILATION OF ESOPH 08/22/2023 Insurance Providers Payer Name Payer Address Payer Phone Subscriber Number Group Number Insured Name Patient Relationship to Insured Coverage Start Date Coverage End Date MEDICARE OF [place] [address] [place] [address] [phone] [id number] Armani Perry Self - patient is the insured MED[employer] ATTN CLAIMS [address] [place] [address] [id number] Armani Perry Self - patient is the insured Medical (General) History Medical History History ICD Code Hypertension Thoracic aortic aneursym 4.4cm--being fo llowed by [facility] cardiothoracic Hyperlipidemia Denies AK,DM,CVA,Lung disease,renal dise ase Neg. screening colonoscopy in [...]
== END 2024-05-15 09:49 | disposition home or self-care (01) ==
PROVIDERS: PCP Family Medicine; Visit Provider Physician Assistant
DX: B34.9 Viral infection, unspecified (principal)

== ENCOUNTER 2024-06-27 09:58 | Outpatient (REF) | payer MEDICARE, SELFPAY ==
--- OUTSIDE RECORDS SUMMARY | 2024-06-27 11:21 | XMS_ITS ---
Author Organization [facility] Address [address] [place] [address] Care Team Providers Care Fire Marshal Name Role Phone Dewayne Cardona Primary Care Provider Unavailab Tyler Felix [phone] Encounters Encounter Location Date Provider Diagnosis [facility] [address] [place] [address] [place] [address] 09/04/2023 Tyler Walters Plan Of Treatment No Information Progress Notes * Armani PIMENTELDOB:1955 (68 yo M)Acc No.[id number]:09/04/2023 Patient:?Armani Pimentel :1955???Age:68 Y???Sex:Male Address:[address] [place], [address] * true * Date:? Generated for Candice unger/Miya/eTransmitting on:?06/27/2024 11:21 AM EDT
--- OUTSIDE RECORDS SUMMARY | 2024-06-27 11:21 | XMS_ITS ---
Author Organization [facility] Address [address] [place] [address] Care Team Providers Care Casting Room Operator Name Role Phone Dewayne Cardona Primary Care Provider Unavailab Tyler Felix Unavailable [phone] REASON FOR VISIT ? why Congo Red stain? Encounters Encounter Location Date Provider Diagnosis [facility] [address] [place] [address] 09/16/2023 Tyler Walters Plan Of Treatment No Information Progress Notes * Armani PIMENTELDOB:1955 (68 yo M)Acc No.[id number]:09/16/2023 Patient:?Armani Pimentel :1955???Age:68 Y???Sex:Male Address:[address] [place], [address] * true * Date:? Generated for Printi ng/Fahilaryg/eTransmitting on:?06/27/2024 11:21 AM EDT
--- OUTSIDE RECORDS SUMMARY | 2024-06-27 11:21 | XMS_ITS ---
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 Name Role Phone Dewayne Cardona Primary Care Provider Unavailab Tyler Felix Unavailable [phone] Allergies No Known Allergies REASON FOR VISIT [...] W/U Status Risk Notes Problem Esophageal stricture (25349591) Esophageal stricture (K22.2) Active confirmed Vital Signs Blood pressure systolic 00 mm Hg 01/30/20 24 Blood pressure diastolic 00 mm Hg 024 Height 73 in 01/30/2024 Weight 205 lbs 01/30/2024 BMI 27.04 kg/m2 01/30/2024 Encounters Encounter Location Date Provider Diagnosis [facility] [address] [place] [address] 01/30/2024 Tyler Walters Esophageal stricture K22.2 and [...] Notes * Armani PIMENTELDOB:1955 (68 yo M)Acc No.[id number]:01/30/2024 Progress Notes Patient:?Armani Pimentel Provider:?Tyler Walters MD :1955???Age:68 Y???Sex:Male [place] e:01/30/2024 Address:[address] [place] [address] [facility] Pcp:Dewayne Cardona Subjective: * Chief Complaints: * [...] past year??Never (0 point),?Points?0,?Interpretation?Negative.?Miscellaneous:?Marital status: single. 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 ???Nonsmoker; when out on the boat [...] Procedure Codes:?3017F COLOR ECTAL CA SCREEN DOC CUK4812U TOBACCO NON-HGRXE4823 P-HTN/HTN BP DOC F/U NOT RSN NOT [...] MD Date:? 024 Generated for Candice unger/Miya/Chivo on:?06/27/2024 11:20 AM EDT History and Physical Notes * [...]
--- OUTSIDE RECORDS SUMMARY | 2024-06-27 11:21 | XMS_ITS | Patient Health Record ---
Author Organization [facility] Address [address] [place] [address] Care Team Providers Care Assistant Professor Nurse Education Name Role Phone Dewayne Cardona Primary Care Provider Unavailab Tyler Felix Unavailable [phone] Allergies No Known Allergies Results Component Value Reference Range Notes Pathology Reviewed date:09/16/2023 07:37:43 PM Interpretation: Performing Lab:[facility], [address] [place] [address] Notes/Report: Name: Armani Perry Age/Sex: 68/M : 1955 Unit#: [id number] Attend Dr: Tyler Walters MD Re08/28/23 [place] : [facility] Disch: SPEC : [id number] RECD : 08/28/23-5682 STATUS: JAIME DOMINGUEZ NUM: [id number] JAVIER: 08/28/23-[address] [facility] [address]: Tyler Walters MD ENTERED: 08/28/23-15 10 SP TYPE: Surgical OTHR DR: Dewayne Cardona MD ORDERED: HE Stain/3, Gross Micro L4, Congo red, Special st. 2/2, AB/PAS Addendum Addendum 1 Entered: 08/30/23-1723 Congo red stain is n egative for amyloid with appropriate control. Addendum Signed ____ __(signature on file) Riana Basin 08/30/23 172 Diagnosis Esophagogastric junc tion, at [...] on A1. 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 2/2, AB/PAS Copies To: Dewayne Cardona MD [facility] [place] [address] [place] [address] Tyler Walters MD [facility] [address] [place] [address] [phone] Signed (si gnature on file) Riana Roland [...] Problem Status W/U Status Risk Notes Problem 899584738 Encounter for screening for malignant neoplasm of colon (Z12.11) Active confirmed Problem Dysphagia (25419142) Dysphagia (R13.10) Active confirmed Problem Stricture of esophagus (50573457) Esophageal obstruction (K22.2) Active confirmed Problem 187335625064218 Preprocedural examination (Z01.818) Active confirmed Problem Esophageal stricture (67430344) Esophageal stricture (K22.2) Active confirmed Problem Generalized abdominal pain (760872556) Abdominal pain, acute, generalized (R10.84) Active confirmed Problem Change in bowel habit (25701395) Recent change in frequency of bowel movements (R19.4) Active confirmed Vital Signs Temperature 99.1 degrees Fahrenheit 08/22/2023 Blood pressure diastolic 00 mm Hg 01/30/2024 Height 73 in 01/30/2024 Blood pressure systolic 00 mm Hg 01/30/2024 Weight 205 lbs 01/30/2024 BMI 27.04 kg/m2 01/30/2024 Encounters Encounter Location Date Provider Diagnosis [facility] [place] [address] [place] [phone] 08/28/2023 Tyler Walters Esophageal obstruction K22.2 ; Dysphagia R13.10 and Hiatal hernia K44.9 [facility] [address] [place] [phone] 08/22/2023 Tyler Walters Dysphagia R13.10 ; Abdominal pain, acute, generalized R10.84 and Recent change in frequency of bowel movements R19.4 [facility] [address] [place] [phone] 01/30/2024 Tyler Walters Esophageal stricture K22.2 and Encounter for screening for malignant neoplasm of colon Z12.11 [facility] [address] [place] [phone] 08/28/2023 Tyler Walters [facility] [address] [place] [phone] 09/04/2023 Tyler Walters [facility] [address] [place] [phone] 09/16/2023 Tyler Walters Assessments Encounter Date Diagnosis [...] End Date MED[place]ARE OF [place] [address] [place] [address] [id number] Armani Perry Self - patient is the insured MED[employer] ATTN CLAIMS [address] [place] [address] [id number] Armani Perry Self - patient is the insured Medical (General) History Medical History History ICD Code Hypertension Thoracic aortic aneursym 4.4cm--being fo llowed by [facility] cardiothoracic Hyperlipidemia Denies DC,DM,CVA,Lung disease,renal dise ase Neg. screening colonoscopy in [...]
[2024-06-27 13:27] LABS: Alanine Aminotransferase 43 U/L (0-40); Albumin Level 4.5 g/dL (3.5-5.0); Alkaline Phosphatase 63 U/L (39-117); Anion Gap 10 (12-20); Aspartate Amino Transferase 34 U/L (5-37); Bilirubin Total 0.9 mg/dL (0.0-1.0); Blood Urea Nitrogen 21 mg/dL (9-16); Calcium 9.6 mg/dL (8.4-10.2); Carbon Dioxide 30 mmol/L (22-29); Chloride 105 mmol/L (96-108); Cholesterol 136 mg/dL (<200); Estimated Glomerular Filt Rate > 60; Glucose Fasting 72 mg/dL (60-99); HDL Cholesterol 44 mg/dL (>40); LDL Cholesterol Calculated 75 mg/dL (<100); Sodium 141 mmol/L (135-145); Total Protein 7.4 g/dL (6.5-8.0); Triglycerides 88 mg/dL (<150)
[2024-06-27 13:48] LABS: Microalbumin Urine < 5.0 mg/L; Prostate Specific Antigen Scr 0.78 ng/mL (<0.05-4.0)
== END 2024-06-27 09:59 | disposition home or self-care (01) ==
LOC: HO.10HDL 09:58
PROVIDERS: Visit Provider Family Medicine
DX: Z00.00 Encounter for general adult medical examination without abnormal findings (principal); I71.9 Aortic aneurysm of unspecified site, without rupture; I10 Essential (primary) hypertension; R74.8 Abnormal levels of other serum enzymes; Z12.5 Encounter for screening for malignant neoplasm of prostate
CPT/HCPCS: 36415; 80053; 80061; 82570; 84153

== ENCOUNTER 2024-07-04 08:40 | Outpatient (AMB) | payer MEDICARE, SELFPAY ==
--- NOTE | 2024-07-04 08:52 | A.OFFPC_ITS ---
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 Dx: I10. Daily As directed, 999 days/lifetime hydrochlorothiazide 25 mg (2 x 12.5 mg) PO DAILY 90 days mecobalamin (vitamin B12) 1,000 mcg PO DAILY Tobacco use date assessed: 10/04/23 Dental Screening Dental Screen Date: 10/04/23 HPI f/u hypertension, HLD, elevated liver enzymes HPI Details 69 y/o male presents to f/u HTN, HLD, el evated liver enzymes. Labs drawn 06/27/24. Reviewed labs with pt. Elevated ALT of 43. AST 34. Triglycerides 88. TC 136. LDL 75. HDL 44. He is on artovastatin 20mg. PSA 0.78. Blood pressure today 114/66, 69p. He is on amlodipine 5mg, HCTZ 25mg daily. Pt notes ongoing urinary rention/hesitancy and frequency which sometimes awakens him at night. [facility] Medical History Right wrist pain Upper respiratory tract infection Cough HTN (hypertension) Aortic aneurysm Osteoarthritis of right knee Right knee pain Surgical History History of inguinal hernia repair History of appendectomy H/O arthroscopic knee surgery Family History Father CHF (congestive heart failure) Mother No problems noted. 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 Tyler Johnson, Orly Parker, Ankit Banda and colleagues, with an educational simone from [employer]. Review of Systems Const Denies chills, Denies fatigue, Denies fever(s), Denies headache(s) and Denies weakness ENT Denies dizziness and Denies headache(s) Card Denies dyspnea Resp Denies cough, Denies dyspnea, Denies wheezing and Denies other (shortness of breath) Musc Denies numbness and Denies tingling Neuro Denies dizziness, Denies headache(s), Denies numbness, Denies tingling and Denies weakness Psych Denies anxiety and Denies depression Endo Denies fatigue Aller/Immun Denies wheezing Physical exam (Primary Care) Vital Signs: Last Vital Signs Temp 97.5 F 07/04/24 08:58 Pulse 69 07/04/24 08:58 Resp 14 07/04/24 08:58 BP 114/66 07/04/24 08:58 Pulse Ox 98 07/04/24 08:58 Oxygen Delivery Method Room Air 07/04/24 08:58 BMI result Body Mass Index 29.2 Tobacco/Smoking Status: Tobacco use Status Tobacco use date assessed 10/04/23 07/04/24 08:54 Patient Tobacco Use Status Never used Tobacco 07/04/24 08:54 e-Cigarette/Vaping Use Never Used 07/04/24 08:54 Thrive Assessment: Date of Thrive Assessment Date Thrive assessed 04/19/23 07/04/24 08:54 Const General: well developed; No acute distress Nutritional Appearance: well nourished Orientation/consciousness: patient oriented x3 [facility] Head: Yes normocephalic and Yes atraumatic Eyes General: appearance normal, both eyes and all related structures Pupils: Equal, round and reactive pupils present EOM: EOMs intact bilaterally Resp Effort & Inspection: normal respiratory effort Neuro General: patient oriented x3 and gait normal Cranial nerves: Yes Equal, round and reactive pupils present Psych Affect: normal affect Coding Level of Care Code Est Pt Level 4 (55580) Diagnoses Essential hypertension I10 Aortic aneurysm I71.9 Hyperlipidemia E78.5 Elevated liver enzymes R74.8 Fatigue R53.83 Hypersomnia G47.10 Screening for prostate cancer Z12.5 Urinary retention R33.9 Assessment & Plan Assessment & Plan (1) Essential hypertension: Comment: Blood pressure goal is less than 120/70 due to aortic aneurysm Code(s): I10 - Essential (primary) hypertension Category: Medical Plan: Blood?pressure?is?well?controlled.??Goal?is?less?willie n?130/70?due?to?aortic?aneurysm Continue?current?medications Encouraged?weight?loss?and?exercise (2) Aortic aneurysm: Comment: Blood pressure goal is less than 120/70 due to aortic aneurysm Code(s): I71.9 - Aortic aneurysm of unspecified site, without rupture Category: Medical Plan: Stable Maintain?good?blood?pressure?control (3) Hyperlipidemia: Code(s): E78.5 - Hyperlipidemia, unspecified Category: Medical Plan: LDL?cholesterol?shows?good?control Had?switched?from?simvastatin?to?atorvastatin.??He?is?tolerating?this?well Continue?atorvastatin (4) Elevated liver enzymes: Code(s): R74.8 - Abnormal levels of other serum enzymes Category: Medical Plan: Liver?enzymes?are?decreasing Encouraged?good?hydration?and?further?weight?loss Will?continue?to?monitor (5) Fatigue: Code(s): R53.83 - Other fatigue Category: Medical Plan: Patient?notes?fatigue?and does?not?awaken rested.??Notes?daytime?fatigue?and?sleepiness. Will?refer?to?Sleep?Medicine (6) Hypersomnia: Code(s): G47.10 - Hypersomnia, unspecified Category: Medical Plan: As?above (7) Screening for prostate cancer: Code(s): Z12.5 - Encounter for screening for malignant neoplasm of prostate Category: Medical Plan: PSA?within?normal?range Will?continue?annual?screening How ever,?patient?does?note?some?urinary?retention/hesitancy?and?frequency?and?this? sometimes?awakens?him?at?night?as?well. ?See?below (8) Urinary retention: Code(s): R33.9 - Retention of urine, unspecified Category: Medical Plan: Some?urinary?retention?with decreased?stream?and waking?up?a?few?times?at?night?to?urinate. Also?having?issues?with?fatigue?so avoiding medications?such?as?tamsulosin?alfuzosin - will?refer?him?urology?for?workup?1st. Orders: Orders Comprehensive Met. Panel Today R74.8 - Abnormal levels of other serum enzymes Referrals Urology Referral R33.9 - Retention of urine, unspecified Sleep Medicine Referral G47.10 - Hypersomnia, unspecified
[2024-07-04 08:58] VITALS: BP 114/66; PULSE 69; RESP 14; TEMP 36.4; O2SAT 98; BMI 29.2
== END 2024-07-04 09:37 | disposition home or self-care (01) ==
LOC: HO.HMCFM 08:41
PROVIDERS: PCP Family Medicine; Visit Provider Family Medicine
DX: I10 Essential (primary) hypertension (principal); I71.9 Aortic aneurysm of unspecified site, without rupture; E78.5 Hyperlipidemia, unspecified; R74.8 Abnormal levels of other serum enzymes; R53.83 Other fatigue; G47.10 Hypersomnia, unspecified; Z12.5 Encounter for screening for malignant neoplasm of prostate; R33.9 Retention of urine, unspecified

== ENCOUNTER → 2024-07-04 08:40 | Outpatient (BNVA) | payer MEDICARE, SELFPAY | PROVIDERS: PCP Family Medicine; Visit Provider Family Medicine | DX: I10 Essential (primary) hypertension (principal); I71.9 Aortic aneurysm of unspecified site, without rupture; E78.5 Hyperlipidemia, unspecified; R74.8 Abnormal levels of other serum enzymes; G47.10 Hypersomnia, unspecified; R33.9 Retention of urine, unspecified | CPT/HCPCS: 99212 ==

== ENCOUNTER 2024-08-23 01:57 | Emergency (ER) | payer MEDICARE, SELFPAY ==
--- OUTSIDE RECORDS SUMMARY | 2024-01-30 05:50 | XMS_ITS ---
Author Organization [facility] Address [address] [place] [address] Care Team Providers Care Hims Clerk Name Role Phone Dewayne Cardona Primary Care Provider Unavailab Tyler Felix Unavailable [phone] Allergies No Known Allergies REASON FOR VISIT dysphagia, esophageal stricture Medications Medication SIG (Take, Route, Frequency, Duration) Notes Start Date End Date Status Lisinopril 20 MG TAKE 1 TABLET BY MILAGROS TH DAILY FOR HYPERTENSION Oral for 90 Active Aspirin Adult Low Dose 81 MG 1 tablet Or ally Once a day Active Omeprazole 40 MG 1 capsule every morn ing Orally Once a day in the morning for 30 day(s) 08/28/2023 Active Vitamin B-12 100 MCG as directed Orally 08/22/2023 Active hydroCHLOROthiazide 25 MG 1 tablet in th e morning Orally Once a day Active Simvastatin 40 MG 1 tablet in the even ing Orally Once a day Active Social History Tobacco Use: Social History Observation Description Date Details (start date - stop date) Never Smoker NA - NA Tobacco Use/Smoking Question Answer Notes Patient is a nonsmoker Alcohol Screen Question Answer Notes Did you have a drink contain ing alcohol in the past year? Yes How often did you have a dri nk containing alcohol in the past year? Never (0 point) How many drinks did you have on a typical day when you were drinking in the past year? 1 or 2 drinks (0 point) How often did you have 6 or more drinks on one occasion in the past year? Never (0 point) Points 0 Interpretation Negative Section Notes: Nonsmoker; when out on the b oat will have a six pack of beer occasionally Problems Problem Type SNOMED Code ICD Code Onset Dates Problem Status W/U Status Risk Notes Problem Esophageal stricture (K22.2) Active confirmed Vital Signs Blood pressure systolic 00 mm Hg 01/30/20 24 Blood pressure diastolic 00 mm Hg 024 Height 73 in 01/30/2024 Weight 205 lbs 01/30/2024 BMI 27.04 kg/m2 01/30/2024 Encounters Encounter Location Date Provider Diagnosis [facility] [address] [place] [address] 01/30/2024 Tyler Walters Esophageal stricture K22.2 and Encounter for screening for malignant neoplasm of colon Z12.11 Assessments Encounter Date Diagnosis (ICD Code) Assessment Notes Treatment Notes Treatment Clinical Notes Section Notes 01/30/2024 Esophageal stricture (ICD-10 - K22.2) Call me if you develop trouble swallowing and/or increasing heartburn symptoms Overall, Colten appears quite well. I did review the findings on his upper endoscopy. He clearly remains much improved after the dilation of the stricture. I still recommended that he be on some acid suppression as the stricture was most certainly in relation to some asymptomatic acid reflux. However, he did not want to do that as he is otherwise asymptomatic. We Did review that strictures can certainly recur and he would need to call me if he develops any recurrent dysphagia. I also advised him to let me know if he develops any significant heartburn which case we probably start him on acid suppression if he agrees to that. We did review that he will be due for a followup screening colonoscopy in 2028 as well. I will plan to see him otherwise on a p.r.n. basis. Colten was very comfortable with this plan. Thank you again for allowing me to participate in Colten's care. I shall continue to keep you advised of his progress. 01/30/2024 Encounter for screening for malignant neoplasm of colon (ICD-10 - Z12.11) Repeat colonoscopy in 2028 Overall, Colten appears quite well. I did review the findings on his upper endoscopy. He clearly remains much improved after the dilation of the stricture. I still recommended that he be on some acid suppression as the stricture was most certainly in relation to some asymptomatic acid reflux. However, he did not want to do that as he is otherwise asymptomatic. We Did review that strictures can certainly recur and he would need to call me if he develops any recurrent dysphagia. I also advised him to let me know if he develops any significant heartburn which case we probably start him on acid suppression if he agrees to that. We did review that he will be due for a followup screening colonoscopy in 2028 as well. I will plan to see him otherwise on a p.r.n. basis. Colten was very comfortable with this plan. Thank you again for allowing me to participate in Colten's care. I shall continue to keep you advised of his progress. Plan Of Treatment Treatment Notes Assessment Notes Esophageal stricture Call me if you deve lop trouble swallowing and/or increasing heartburn symptoms Encounter for screening for malignant neoplasm of colon Repeat colonoscopy in 2028 Next Appt Details Follow Up: prn, Reason: Progress Notes * Armani PIMENTELDOB:1955 (68 yo M)Acc No.[id number]:01/30/2024 Progress Notes Patient: Armani Bazzi Provider: Kiersten Walters MD :1955 A ge:68 Y S ex:Male Date:01/30/2024 Address:[address] [place] [address] [facility] [id number] Pcp:Dewayne Cardona Subjective: * Chief Complaints: * D ysphagia, esophageal stricture * HPI: i ncontinence: I saw Colten in followup today in regard to his history of an esophageal stricture and previous dysphagia. I last saw Colten in August, at which time he underwent an upper endoscopy for evaluation of his dysphagia. This revealed a fibrotic distal esophageal stricture that was dilated successfully with a large balloon. There was no evidence of any esophagitis, Haskins's esophagus, nor any other significant abnormalities. I did start him on omeprazole at that time but he describes having stopped that a short time thereafter as he does not like taking pills and was not having any acid reflux. Since the procedure he has been doing very well and has not had any further episodes of dysphagia or esophageal obstruction. He is eating everything easily. He denies any significant heartburn. He denies early satiety, abdominal pain, jaundice, or weight loss. His bowel movements have been regular and without any signs of bleeding. He did have a negative colonoscopy in 2019 and denies any known family history of colorectal cancer. He does report that his brother of stomach cancer last year but he was a smoker and drinker . * ROS: G eneral/Constitutional: Change in appetite d enies. C hills d enies. F atigue d enies. O phthalmologic: Comments a ll negative. E NT: Comments a ll negative. R espiratory: hemoptysis d enies. C ough d enies. ? C ardiovascular: Chest pain d enies. O rthopnea d enies. ? G astrointestinal: Comments S [facility] for details. G enitourinary: Hematuria d enies. D ysuria d enies. ? M usculoskeletal: Painful joints d enies. W eakness d enies. ? S kin: Itching d enies. R francesco d enies. N eurologic: Headache d enies. S eizures d enies. ? P sychiatric: Comments a ll negative. * Medical History: * Surgical History: A ppendectomy Knee * Hospitalization/Major Diagno stic Procedure: N o Hospitalization History. * Family History: F ather: 88 yrs, chf, diagnosed with Heart disease. M other: 96 yrs.? no known hx of colon cancer. Older brother had stomach cancer. No family history of liver cancer. * Social History: T obacco Use: T obacco Use/Smoking P atient is a n onsmoker. D rugs/Alcohol: A lcohol Screen D id you have a drink containing alcohol in the past year? Y es, H ow often did you have a drink containing alcohol in the past year? N ever (0 point), H ow many drinks did you have on a typical day when you were drinking in the past year? 1 or 2 drinks (0 point), H ow often did you have 6 or more drinks on one occasion in the past year? N ever (0 point), P oints 0 , I nterpretation N egative. M iscellaneous: M arital status: single. 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 N onsmoker; when out on the boat will have a six pack of beer occasionally. * Medications: T akingSimvastatin 40 MG Tablet 1 tablet in the evening Orally Once a dayhydroCHLOROthiazide 25 MG Tablet 1 tablet in the morning Orally Once a dayAspirin Adult Low Dose 81 MG Tablet Delayed Release 1 tablet Orally Once a dayLisinopril 20 MG Tablet TAKE 1 TABLET BY MOUTH DAILY FOR HYPERTENSION Oral Vitamin B-12 100 MCG Tablet as directed Orally Omeprazole 40 MG Capsule Delayed Release 1 capsule every morning Orally Once a day in the morningMedication List reviewed and reconciled with the patientTaking Simvastatin 40 MG Tablet 1 tablet in the evening Orally Once a dayTaking hydroCHLOROthiazide 25 MG Tablet 1 tablet in the morning Orally Once a dayTaking Aspirin Adult Low Dose 81 MG Tablet Delayed Release 1 tablet Orally Once a dayTaking Lisinopril 20 MG Tablet TAKE 1 TABLET BY MOUTH DAILY FOR HYPERTENSION Oral Taking Vitamin B-12 100 MCG Tablet as directed Orally Taking Omeprazole 40 MG Capsule Delayed Release 1 capsule every morning Orally Once a day in the morningMedication List reviewed and reconciled with the patient * Allergies: N .K.D.A.yes[Allergies Verified] Objective: * Vitals: W t: 205 lbs, Ht: 73 in, BMI:27.04 Index, BP: 00/00 mm Hg. * Examination: G eneral Examination: GENERAL APPEARANCE: p leasant, well nourished, well developed, in no acute distress. EYES: s clera non-icteric. ORAL CAVITY: m ucosa moist. NECK/THYROID: n o cervical lymphadenopathy, neck supple.? SKIN: n onjaundiced, no spider angiomata. HEART: S 1, S2 normal. LUNGS: c lear to auscultation bilaterally. ABDOMEN: n ormal bowel sounds, no guarding or rigidity, no guarding or rigidity, no masses palpable, soft, nontender, nondistended. EXTREMITIES: n o edema. NEUROLOGIC: a lert and oriented. Assessment: * Assessment: 1. E sophageal stricture - K22.2 (Primary) 2 . E ncounter for screening for malignant neoplasm of colon - Z12.11 Overall, Colten appears quite w ell. I did review the findings on his upper endoscopy. He clearly remains much improved after the dilation of the stricture. I still recommended that he be on some acid suppression as the stricture was most certainly in relation to some asymptomatic acid reflux. However, he did not want to do that as he is otherwise asymptomatic. We Did review that strictures can certainly recur and he would need to call me if he develops any recurrent dysphagia. I also advised him to let me know if he develops any significant heartburn which case we probably start him on acid suppression if he agrees to that. We did review that he will be due for a followup screening colonoscopy in 2028 as well. I will plan to see him otherwise on a p.r.n. basis. Colten was very comfortable with this plan. Thank you again for allowing me to participate in Colten's care. I shall continue to keep you advised of his progress. Plan: * Treatment: 2. E ncounter for screening for malignant neoplasm of colon Notes: Repeat colonoscopy in 2028 * Procedure Codes: 3 017F COLORECTAL CA SCREEN DOC [id number] TOBACCO [id number] P-HTN/HTN BP DOC F/U NOT RSN NOT GV * Preventive Medicine: Counseling: C are goal follow-up plan: A jas Normal BMI Follow-up G iving encouragement to exercise, B MS management provided Y es. Screenings: F all Risk Screening F all Risk Assessment: N o falls in the past year, S creening: N o falls in the past year, A ssessment: N ot performed, no reason specified, P harsh of Care: N ot documented, no reason specified. * Follow Up: p rn * * Sign off status: Completed true * Provider: Kiersten Walters MD Date: 1 03/31/2023 Generated for Candice unger/Miya/eTransmitting on: 0 08/23/2024 03:08 AM EDT History and Physical Notes * HPI (History of Present Illness) Category Sub-Category Detail Notes Category Not es incontinence I saw Colten in followup today in regard to his history of an esophageal stricture and previous dysphagia. I last saw Colten in August, at which time he underwent an upper endoscopy for evaluation of his dysphagia. This revealed a fibrotic distal esophageal stricture that was dilated successfully with a large balloon. There was no evidence of any esophagitis, Haskins's esophagus, nor any other significant abnormalities. I did start him on omeprazole at that time but he describes having stopped that a short time thereafter as he does not like taking pills and was not having any acid reflux. Since the procedure he has been doing very well and has not had any further episodes of dysphagia or esophageal obstruction. He is eating everything easily. He denies any significant heartburn. He denies early satiety, abdominal pain, jaundice, or weight loss. His bowel movements have been regular and without any signs of bleeding. He did have a negative colonoscopy in 2019 and denies any known family history of colorectal cancer. He does report that his brother of stomach cancer last year but he was a smoker and drinker . Examination Category Sub-Category Detail Notes Category Not es General Examination GENERAL APPEARANCE: pleasant , well nourished, well developed, in no acute distress HEAD: EYES: sclera non-icteric EARS: NOSE: THROAT: NECK/THYROID: no cervical lymphade nopathy, neck supple HEART: S1, S2 normal CHEST: LUNGS: clear to auscultatio n bilaterally ABDOMEN: normal bowel sounds, no guarding or rigidity, no guarding or rigidity, no masses palpable, soft, nontender, nondistended NEUROLOGIC: alert and oriented SKIN: nonjaundiced, no spi petr angiomata EXTREMITIES: no edema PERIPHERAL PULSES: BACK: BREASTS: MUSCULOSKELETAL: MALE GENITOURINARY: LYMPH NODES: RECTAL EXAM: FEMALE GENITOURINARY: ORAL CAVITY: mucosa moist
--- NOTE | 2024-08-23 | ECG_ITS ---
Test Reason : DIZZINESS Blood Pressure : */* mmHG Vent. Rate : 67 BPM Atrial Rate : 67 BPM P-R Int : 172 ms QRS Dur : 98 ms QT Int : 418 ms P-R-T Axes : 26 -17 29 degrees QTcB Int : 441 ms Normal sinus rhythm Normal ECG When compared with ECG of 15-Jun-2021 19:46, No significant change was found Referred By: Generic ED Physician Electronically Signed By: Luis Fernando Peñaloza
--- NOTE | ~2024-08-23 | CT_ITS ---
CLINICAL HISTORY: severe DAMON, dizziness CT head without contrast Comparison: None Findings: Mild motion artifact present. No intracranial mass, midline shift, hydrocephalus, or acute hemorrhage. Old lacunar infarct versus dilated perivascular space present at the inferior aspect of the right lentiform nucleus. Minimal to mild mucosal thickening identified within the ethmoid air cells with minimal mucosal thickening at the left frontal sinus. Mild mucosal thickening present at the right maxillary sinus. The bilateral mastoid air cells appear clear. No acute skull fracture. Impression: 1. No acute intracranial abnormality. No acute intracranial hemorrhage. This document has been electronically signed by: Rober Arthur MD on 08/23/2024 03:46:44
[2024-08-23 02:05] VITALS: BP 153/87; PULSE 71; RESP 16; TEMP 36.1; O2SAT 98; BMI 28.5
[2024-08-23 02:15] LABS: MANUAL DIFF FLAG NO
--- NOTE | 2024-08-23 02:17 | ED_ITS ---
HPI - Dizziness General Chief Complaint: Dizziness Stated Complaint: dizzy neck pain confused Time Seen by Provider: 08/23/24 02:16 Source: patient Mode of arrival: ambulatory Limitations: no limitations History of Present Illness ED Provider: Dr. Kendra Jewell HPI Narrative: Patient comes to the emergency room complaining of dizziness. Patient states that he was sleeping, needed to get up and walk to the bathroom to urinate. And then patient states that he started feeling dizzy. Patient states that everything started spinning. Patient did not fall, did not lose consciousness. Denies chest pain or shortness of breath. Patient was able to walk to his car, drove to the emergency room, parked his car, and presented ambulating to the ED. Patient states that he has had vertigo in the past. Related Data Home Medications ?Medication ?Instructions ?Recorded ?Confirmed aspirin 81 mg tablet,delayed 81 mg PO DAILY 04/04/24 0 07/04/24 release (Adult Aspirin Regimen) mecobalamin (vitamin B12) 1,000 1,000 mcg PO DAILY 07/04/24 mcg lozenges Previous Rx's ?Medication ?Instructions ?Recorded blood pressure monitor #1 ea 05/31/21 amlodipine 5 mg tablet 5 mg PO DAILY 90 days #90 ta bs 01/12/24 atorvastatin 20 mg tablet 20 mg PO BEDTIME 90 days #90 tabs 04/04/24 hydrochlorothiazide 12.5 mg capsule 25 mg (2 x 12.5 mg ) PO DAILY 90 08/14/24 days #180 caps meclizine 25 mg chewable tablet 25 mg PO QID PRN motio n sickness 08/23/24 #14 tabs Allergies Allergy/AdvReac Type Severity Reaction Status Date / Time prednisone AdvReac Mild chest Verified 08/23/24 02:07 tightness, hard to breathe Lisinopril Allergy Severe Angioedema Uncoded 05/15/24 09:15 Review of Systems 2 Review of Systems: Constitutional : No Weight loss, No Fever, No Chills, No Night Sweats, No Fatigue, No Malaise ENT/Mouth : No Hearing loss, No Ear Pain, No Nasal Congestion, No Sinus Pain, No Hoarseness, No sore throat, No Rhinorrhea, No Swallowing Difficulty Eyes: No Eye Pain, No Swelling, No Redness, No Foreign Body, No Discharge, No Vision Changes Cardiovascular : No Chest Pain, No SOB, No Dyspnea on Exertion, No Orthopnea, No Edema, No Palpitations Respiratory : No Cough, No Sputum, No Wheezing, No Smoke Exposure, No Dyspnea Gastrointestinal : No Nausea, No Vomiting, No Diarrhea, No Constipation, No abdominal Pain, No Hematochezia, No Melena Genitourinary : no irregular bleeding, No Dysuria, No Urinary Frequency, No Hematuria, No Urinary Incontinence, No Urgency, No Flank Pain, No Urinary Flow Changes, No Hesitancy Musculoskeletal : No joint pain, No Myalgias, No Joint Swelling Skin : No Skin Lesions, No rash Neuro : No Weakness, No Numbness, No Paresthesias, No Loss of Consciousness, complaining of headache and dizziness reported as room spinning Psych : No Anxiety/Panic, No Depression, No SI/HI/AH/VH, No Social Issues, Heme/Lymph: No Bruising, No Bleeding,No Lymphadenopathy Endocrine : No Polyuria, No Polydipsia, No Temperature Intolerance [facility] Past Medical History Medical History Right wrist pain Upper respiratory tract infection Cough HTN (hypertension) Aortic aneurysm Osteoarthritis of right knee Right knee pain Surgical History History of inguinal hernia repair History of appendectomy H/O arthroscopic knee surgery Family History Family History Father CHF (congestive heart failure) Mother No problems noted. 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 Oriented X3. Very anxious Eyes: Pupils equal, round and reactive to light. ENT: Pharynx normal. Neck: Normal inspection. Neck supple. No lymph nodes noted. No crepitus CVS: Normal heart rate and rhythm. Pulses normal. Normal S1 and S2 Respiratory: No respiratory distress. Breath sounds normal. No Wheezing. No rales Abdomen: Soft and nontender. No rigidity. No distention. Skin: Skin warm and dry. Normal skin color. Normal skin turgor. Extremities: No lower extremity edema. No Lacerations. No Rash Neuro: Oriented X 3. No motor deficit. No sensory deficit. Moving all extremities. No slurred speech. CN 2 through 12 grossly intact. Patient walked in with normal in unassisted steady gait Psych: calm, cooperative, very anxious Course Course Course Narrative: Patient got up to the bathroom, urinated and then started having dizziness described as room spinning. All of patient's labs and imaging pending, orthostatic vitals pending. Patient receiving acetaminophen for the headache, and p.o. diazepam and meclizine. Medications Administered Discontinued Medications Generic Name Dose Route Start Last Admin Trade Name Misaelq PRN Reason Stop Dose Admin Acetaminophen 975 mg 08/23/24 02:18 08/23/24 02:22 Acetaminophen 325 Mg Tablet PO 08/23/24 02:19 975 mg ONCE ONE Administration Diazepam 2 mg 08/23/24 02:15 08/23/24 02:22 Diazepam 2 Mg Tablet PO 08/23/24 02:16 Not Given ONCE ONE Meclizine HCl 50 mg 08/23/24 02:15 08/23/24 02:22 Meclizine Hcl 25 Mg Tablet PO 08/23/24 02:16 50 mg ONCE ONE Administration Medical Decision Making Medical Decision Making [facility] Narrative: My interpretation of labs: No significant abnormality in patient's hematology and chemistry, normal LFTs, normal troponin, normal lipase Head CT does not show any acute abnormalities Orthostatic vitals negative Overall, patient feeling better, patient states that he has a bit of headache in the 1 specific spot in the back of his head. Patient has normal steady gait. Patient ready for discharge Differential Diagnosis Differential Diagnoses: The differential diagnosis associated with the presentation includes (TIA, orthostatic hypotension, anxiety, vertigo, BPPV) Admission/Observation Consideration of admission/observation: Escalation of care including admission/observation considered (Given patient's initial presentation and symptoms, observation was considered) Lab Data MDM Lab Attestation statement: I reviewed the patient's lab results. 08/23/24 02:08 08/23/24 02:08 Labs: Lab Results 08/23/24 Range/Units 02:08 WBC 6.7 (4.8-10.8) X10*3/uL RBC 4.78 (4.60-5.80) X10*6/uL Hgb 15.4 (14.0-18.0) g/dl Hct 42.4 (42.0-52.0) % MCV 88.7 (80.0-98.0) fL MCH 32.2 (27.0-33.0) pg MCHC 36.3 H (31.0-36.0) g/dl RDW 12.1 (11.0-16.0) % Plt Count 234 (160-400) X10*3/uL MPV 9.2 L (9.4-12.4) fL Immature Gran % (Auto) 0.3 (0.0-0.4) % Neut % (Auto) 57.3 (45-73) % Lymph % (Auto) 23.9 (20-40) % Mcdonough % (Auto) 11.8 H (2-11) % Eos % (Auto) 6.1 H (0-4) % Baso % (Auto) 0.6 (0-2) % Lymph # (Auto) 1.6 (1.2-4.9) X10*3/uL Mcdonough # (Auto) 0.8 (0.1-1.2) X10*3/uL Eos # (Auto) 0.4 (0.0-0.4) X10*3/uL Baso # (Auto) 0.0 (0.0-0.2) X10*3/uL Abs Immat Gran (auto) 0.02 (0.00-0.03) X10*3/uL Absolute Neuts (auto) 3.8 (2.0-8.3) x10*3/uL Absolute Nucleated RBC 0.000 (0.0-0.012) X10*3/uL Nucleated RBC % (auto) 0.0 (0.0-0.2) /100WBC Sodium 141 (135-145) mmol/L Potassium 3.5 (3.3-5.1) mmol/L Chloride 107 (96-108) mmol/L Carbon Dioxide 25 (22-29) mmol/L Anion Gap 13 (12-20) BUN 16 (9-16) mg/dL Creatinine 0.73 (0.5-1.4) mg/dL Estim Creat Clear Calc 117.5 Estimated GFR > 60 Random Glucose 98 (60-115) mg/dL Calcium 9.4 (8.4-10.2) mg/dL Total Bilirubin 0.6 (0.0-1.0) mg/dL AST 32 (5-37) U/L ALT 29 (0-40) U/L Alkaline Phosphatase 68 (39-117) U/L Troponin I High Sens < 2.7 (<3.5-35.0) ng/L Total Protein 7.4 (6.5-8.0) g/dL Albumin 4.8 (3.5-5.0) g/dL Lipase 44 (8-78) U/L Independent Interpretation I performed an independent interpretation of an: CT Scan Radiology Impression Discussion of test interpretation with radiology: I have reviewed the radiologist's reading. Radiologist Impression: Mild motion artifact present. No intracranial mass, midline shift, hydrocephalus, or acute hemorrhage. Old lacunar infarct versus dilated perivascular space present at the inferior aspect of the right lentiform nucleus. Minimal to mild mucosal thickening identified within the ethmoid air cells with minimal mucosal thickening at the left frontal sinus. Mild mucosal thickening present at the right maxillary sinus. The bilateral mastoid air cells appear clear. No acute skull fracture. Impression: 1. No acute intracranial abnormality. No acute intracranial hemorrhage. Critical Care Time Critical Care Time Critical Care Time: Yes Total Critical Care Time: 35 Attestation: I have personally provided critical care time. Time includes review of lab data, radiology results, discussion with consultants, and monitoring for potential decompensation. Intervention performed as documented. Discharge Plan Discharge Clinical Impression: Vertigo Patient Disposition: Home, Self-Care Instructions: Dizziness (ED) Additional Instructions: Please follow-up with your primary care physician tomorrow. If you have any worsening or new symptoms, please return to the emergency room or call 911 Prescriptions: New meclizine 25 mg tablet,chewable 25 mg PO QID PRN (Reason: motion sickness) Qty: 14 0RF No Action amlodipine 5 mg tablet 5 mg PO DAILY 90 Days Qty: 90 3RF hydrochlorothiazide 12.5 mg capsule 25 mg PO DAILY 90 Days Qty: 180 2RF (DME) blood pressure monitor Kit See Rx Instructions .ROUTE .MEDSUPPLY Qty: 1 0RF Rx Instructions: Automatic, Digital. Dx: I10. Daily As directed, 999 days/lifetime aspirin [Adult Aspirin Regimen] 81 mg tablet,delayed release (DR/EC) 81 mg PO DAILY mecobalamin (vitamin B12) 1,000 mcg lozenge 1,000 mcg PO DAILY Rx Instructions: allow to dissolve in mouth OR may chew lightly before swallowing atorvastatin 20 mg tablet 20 mg PO BEDTIME 90 Days Qty: 90 3RF Print Language: Malian
[2024-08-23 02:20] LABS: Basophils Percent Auto 0.6 % (0-2); Eosinophils Absolute Auto 0.4 X10*3/uL (0.0-0.4); Eosinophils Percent Auto 6.1 % (0-4); Hematocrit 42.4 % (42.0-52.0); Hemoglobin 15.4 g/dl (14.0-18.0); Imm Gran Abs Auto 0.02 X10*3/uL (0.00-0.03); Imm Gran Pct Auto 0.3 % (0.0-0.4); Lymphocytes Absolute Auto 1.6 X10*3/uL (1.2-4.9); Lymphocytes Percent Auto 23.9 % (20-40); Mean Corpuscular HGB Conc 36.3 g/dl (31.0-36.0); Mean Corpuscular Hemoglobin 32.2 pg (27.0-33.0); Mean Corpuscular Volume 88.7 fL (80.0-98.0); Mean Platelet Volume 9.2 fL (9.4-12.4); Monocytes Absolute Auto 0.8 X10*3/uL (0.1-1.2); Monocytes Percent Auto 11.8 % (2-11); Neutrophils Absolute Auto 3.8 x10*3/uL (2.0-8.3); Neutrophils Percent Auto 57.3 % (45-73); Platelet Count 234 X10*3/uL (160-400); Red Blood Count 4.78 X10*6/uL (4.60-5.80); Red Cell Distribution Width 12.1 % (11.0-16.0); White Blood Count 6.7 X10*3/uL (4.8-10.8)
[2024-08-23] MEDS: Acetaminophen 325 MG TABLET 975 MG PO (02:22)
[2024-08-23] MEDS: Meclizine HCl 25 MG TABLET 50 MG PO (02:22)
[2024-08-23 02:29] LABS: Alanine Aminotransferase 29 U/L (0-40); Albumin Level 4.8 g/dL (3.5-5.0); Alkaline Phosphatase 68 U/L (39-117); Anion Gap 13 (12-20); Aspartate Amino Transferase 32 U/L (5-37); Bilirubin Total 0.6 mg/dL (0.0-1.0); Blood Urea Nitrogen 16 mg/dL (9-16); Calcium 9.4 mg/dL (8.4-10.2); Carbon Dioxide 25 mmol/L (22-29); Chloride 107 mmol/L (96-108); Creatinine Clr Calc Pharmacy 117.5; Estimated Glomerular Filt Rate > 60; Glucose Random 98 mg/dL (60-115); Lipase 44 U/L (8-78); Potassium 3.5 mmol/L (3.3-5.1); Sodium 141 mmol/L (135-145); Total Protein 7.4 g/dL (6.5-8.0)
[2024-08-23 02:51] LABS: Troponin-I High Sensitivity < 2.7 ng/L (<3.5-35.0)
[2024-08-23 03:09] VITALS: BP 131/79; PULSE 58
[2024-08-23 03:10] VITALS: BP 136/82; PULSE 63
[2024-08-23 03:12] VITALS: BP 137/85; PULSE 67
[2024-08-23 05:25] VITALS: BP 109/72; PULSE 56; RESP 20; TEMP 36.5; O2SAT 96
[2024-08-23 05:31] VITALS: BP 109/72; PULSE 56; RESP 20; TEMP 36.5; O2SAT 96
== END 2024-08-23 05:32 | disposition home or self-care (01) ==
PROVIDERS: Emergency Provider Emergency Medicine; PCP Family Medicine
DX: R42 Dizziness and giddiness (principal); M54.2 Cervicalgia; R51.9 Headache, unspecified; Z79.899 Other long term (current) drug therapy
CPT/HCPCS: 36415; 70450; 80053; 83690; 84484; 85025; 93005; 99284; 99285

== ENCOUNTER → 2024-08-23 02:04 | Outpatient (BNV) | payer MEDICARE, SELFPAY | PROVIDERS: Emergency Provider Emergency Medicine; PCP Family Medicine; Visit Provider Internal Medicine Cardiovascular Disease | DX: R42 Dizziness and giddiness (principal) | CPT/HCPCS: 93010 ==

== ENCOUNTER → 2024-08-23 02:15 | Outpatient (BNV) | payer MEDICARE, SELFPAY | PROVIDERS: Emergency Provider Emergency Medicine; PCP Family Medicine; Visit Provider Radiology Diagnostic Radiology | DX: R51.9 Headache, unspecified (principal); R42 Dizziness and giddiness | CPT/HCPCS: 70450 ==

== ENCOUNTER 2024-10-23 11:44 | Outpatient (REF) | payer MEDICARE, SELFPAY ==
--- OUTSIDE RECORDS SUMMARY | 2023-08-28 09:50 | XMS_ITS ---
Author Organization [facility] Address [address] [place] [address] Care Team Providers Care Manager School Name Role Phone Dewayne Cardona Primary Care Provider Unavailab Tyler Felix Unavailable [phone] REASON FOR VISIT dysphagia Problems Problem Type SNOMED Code ICD Code Onset Dates Problem Status W/U Status Risk Notes Problem Stricture of esophagus (17947313) Esophageal obstruction (K22.2) Active confirmed Encounters Encounter Location Date Provider Diagnosis [facility] [place] [address] [place] [phone] 08/28/2023 Tyler Walters Esophageal obstruc tion K22.2 ; Dysphagia R13.10 and Hiatal hernia K44.9 Assessments Encounter Date Diagnosis (ICD Code) Assessment Notes Treatment Notes Treatment Clinical Notes Section Notes 08/28/2023 Esophageal obstruction (ICD-10 - K22.2) 08/28/2023 Dysphagia (ICD-10 - R13.10) 08/28/2023 Hiatal hernia (ICD-10 - K44.9) Plan Of Treatment No Information Progress Notes * ArmaniDOB:1955 (69 yo M)Acc No.[id number]:08/28/2023 EGD/MAC Patient: Armani JACOB Provider: Kiersten Walters MD :1955 A ge:68 Y S ex:Male Date:08/28/2023 Address: [address] [id number] Pcp:Dewayne Cardona Subjective: * Chief Complaints: * 1 . Dysphagia. * Medical History: Objective: * Vitals: Assessment: * Assessment: 1. E sophageal obstruction - K22.2 (Primary) 2 . D ysphagia - R13.10 ? 3 . H iatal hernia - K44.9 Plan: * Treatment: * Procedure Codes: 4 3249 ESOPH ENDOSCOPY, DILATION, 19618 UPPER GI ENDOSCOPY, BIOPSY, Modifiers: 59 * * The named appointment provid er may or may not be the originator of this progress note, and it is not deemed complete until electronically signed by the appointment provider. Sign off status: Pending * Provider: Kiersten Walters MD Date: 0 08/28/2023 Generated for Candice unger/Miya/Sumititting on: 0 10/23/2024 01:00 PM EDT
[2024-10-23 14:02] LABS: Alanine Aminotransferase 35 U/L (0-40); Albumin Level 5.0 g/dL (3.5-5.0); Alkaline Phosphatase 68 U/L (39-117); Anion Gap 13 (12-20); Aspartate Amino Transferase 37 U/L (5-37); Blood Urea Nitrogen 11 mg/dL (9-16); Calcium 9.5 mg/dL (8.4-10.2); Carbon Dioxide 28 mmol/L (22-29); Chloride 103 mmol/L (96-108); Estimated Glomerular Filt Rate > 60; Potassium 4.1 mmol/L (3.3-5.1); Sodium 140 mmol/L (135-145); Total Protein 7.7 g/dL (6.5-8.0)
== END 2024-10-23 11:45 | disposition home or self-care (01) ==
LOC: HO.10HDL 11:44
PROVIDERS: Visit Provider Family Medicine
DX: R74.8 Abnormal levels of other serum enzymes (principal)
CPT/HCPCS: 36415; 80053

== ENCOUNTER 2024-10-29 08:26 | Outpatient (AMB) | payer MEDICARE, SELFPAY ==
--- OUTSIDE RECORDS SUMMARY | 2023-08-28 09:50 | XMS_ITS ---
Author Organization [facility] Address [address] [place] [address] Care Team Providers Care Rig Hand Name Role Phone Dewayne Cardona Primary Care Provider Unavailab Tyler Felix Unavailable [phone] REASON FOR VISIT dysphagia Problems Problem Type SNOMED Code ICD Code Onset Dates Problem Status W/U Status Risk Notes Problem Stricture of esophagus (90283535) Esophageal obstruction (K22.2) Active confirmed Encounters Encounter Location Date Provider Diagnosis [facility] Outpatient [address] [place] [phone] 08/28/2023 Tyler Walters Esophageal obstruc tion K22.2 ; Dysphagia R13.10 and Hiatal hernia K44.9 Assessments Encounter Date Diagnosis (ICD Code) Assessment Notes Treatment Notes Treatment Clinical Notes Section Notes 08/28/2023 Esophageal obstruction (ICD-10 - K22.2) 08/28/2023 Dysphagia (ICD-10 - R13.10) 08/28/2023 Hiatal hernia (ICD-10 - K44.9) Plan Of Treatment No Information Progress Notes * ArmaniDOB:1955 (69 yo M)Acc No.[id number]:08/28/2023 EGD/MAC Patient: Armani JACOB Provider: Kiersten Walters MD :1955 A ge:68 Y S ex:Male Date:08/28/2023 Address: [address] [id number] Pcp:Dewayne Cardona Subjective: * Chief Complaints: * 1 . Dysphagia. * Medical History: Objective: * Vitals: Assessment: * Assessment: 1. E sophageal obstruction - K22.2 (Primary) 2 . D ysphagia - R13.10 ? 3 . H iatal hernia - K44.9 Plan: * Treatment: * Procedure Codes: 4 3249 ESOPH ENDOSCOPY, DILATION, 84316 UPPER GI ENDOSCOPY, BIOPSY, Modifiers: 59 * * The named appointment provid er may or may not be the originator of this progress note, and it is not deemed complete until electronically signed by the appointment provider. Sign off status: Pending * Provider: Kiersten Walters MD Date: 0 08/28/2023 Generated for Candice unger/Miya/Sumititting on: 0 10/29/2024 08:38 AM EDT
--- NOTE | 2024-10-29 08:32 | A.OFFPC_ITS ---
Vital Signs 10/29/24 08:55 10/29/24 09:40 Height 6 ft Weight 209 lb 2 oz BMI 28.4 BP 138/82 140/78 H Blood Pressure Location Rt brachial Lt brachial Position Sitting Sitting Respiration 18 Pulse 68 Pulse Source Pulse Oximeter Temp 97.2 F Temp Source Temporal Artery Scan Pulse Oximetry (%) 97 Oxygen Delivery Method Room Air Intake Visit Reasons: f/u HTN, labs - see comments Intake Note: Armani presents in the office today for hypertension and a review of his labs. Allergies prednisone Adverse Reaction (Mild, Verified 10/29/24 08:50) chest tightness, hard to breathe Lisinopril Allergy (Severe, Uncoded 10/29/24 08:50) Angioedema Medication List - Last Reconciled 10/29/24 by Dewayne Cardona MD amlodipine 5 mg PO DAILY 90 days aspirin (Adult Aspirin Regimen) 81 mg PO DAILY atorvastatin 20 mg PO BEDTIME 90 days blood pressure monitor Automatic, Digital. Dx: I10. Daily As directed, 999 days/lifetime hydrochlorothiazide 25 mg (2 x 12.5 mg) PO DAILY 90 days meclizine 25 mg PO QID PRN mecobalamin (vitamin B12) 1,000 mcg PO DAILY Tobacco use date assessed: 10/29/24 Fall risk assessment: No Falls in past year Last assessed Fall Risk: 10/29/24 Dental Screening Dental Screen Date: 10/29/24 Did you have a dental visit in the last 12 months?: No Did you have a dental problem in the last 6 months where you did not have access to dental care?: No Was dental information given to patient?: Patient declined HPI f/u HTN, labs - see comments HPI Details 69 y/o male presents to f.u HTN, labs. Labs drawn 10/23/24. Reviewed labs with pt. Liver enzymes improved and now within normal range. BP today 138/82, 68p. He is on amlodipine 5mg, hydrochlorothiazide 25mg daily. [facility]LY [facility], [facility] Medical History Right wrist pain Upper respiratory tract infection Cough HTN (hypertension) Aortic aneurysm Osteoarthritis of right knee Right knee pain Surgical History History of inguinal hernia repair History of appendectomy H/O arthroscopic knee surgery Family History Father CHF (congestive heart failure) Mother No problems noted. Brother Pulmonary fibrosis Brother Stomach cancer Brother MVA (motor vehicle accident) Social History (Updated 10/29/24 @ 08:51 by Kimmy Wolff MA) Household Members: Family Household Members Other:: mother Housing: House Alcohol intake: current Alcohol intake frequency: 0-2 drinks per day Alcohol type: beer Patient Tobacco Use Status: Never used Tobacco e-Cigarette/Vaping Use: Never Used Second Hand Smoke Exposure: No service: No Current occupational status: employed Current occupation: [employer] Current occupational exposures/hazards: No Cognitive needs: No Hearing needs: No Vision needs: No Questionnaire PHQ-9 Over the last 2 weeks, how often have you been bothered by any of the following problems? 1. Little interest or pleasure in doing things: not at all 2. Feeling down, depressed, or hopeless: not at all 3. Trouble falling or staying asleep, or sleeping too much: more than half the days (Falling asleep) 4. Feeling tired or having little energy: more than half the days 5. Poor appetite or overeating: more than half the days 6. Feeling bad about yourself - or that you are a failure or have let yourself or your family down: not at all 7. Trouble concentrating on things, such as reading the newspaper or watching television: not at all 8. Moving or speaking so slowly that other people could have noticed. Or the opposite - being so fidgety or restless that you have been moving around a lot more than usual: not at all 9. Thoughts that you would be better off or of hurting yourself in some way: not at all Total score: 6 Depression Screening Interpretation: Positive Depression Screening Done: Yes 18246 - PHQ-9 Billing: Yes Source: Developed by Drs. Tyler Johnson, Orly Parker, Ankit Banda and colleagues, with an educational simone from [employer]. Thrive Questionnaire Date Thrive assessed: 10/29/24 I am a: Patient What is your living situation today?: I have a steady place to live Within the past 12 months, did the food you bought not last and you didn't have the money to get more?: Never true Within the past 12 months, did you worry whether your food would run out before you got money to buy more?: Never true Do you have trouble paying for medicines?: No Do you have trouble getting transportation to medical appointments?: No Do you have trouble paying your heating and electricity bill?: No Do you have trouble taking care of your child, family member or friend?: No Do you have trouble with day-to-day activities such as bathing, preparing meals, shopping, managing finances, etc.?: No Are you currently unemployed and looking for a job?: No Are you interested in more education?: No Please select the resources that you would like help with: None Currently or been in a relationship where the following occur: No concerns reported THRIVE Score: 0 AUDIT C Alcohol Use Questionnaire (AUDIT-C) 1. How often do you have a drink containing alcohol?: Monthly or less 2. How many drinks containing alcohol do you have on a typical day when you are drinking?: 1 or 2 3. How often do you have six or more drinks on one occasion?: Never Total Score: 1 KEITH-7 AMB Questionnaire KEITH-7 Date KEITH - 7 assessed: 04/19/23 Feeling nervous, anxious, or on edge: 1 = Several days Not being able to stop or control worryin = More than half the days Worrying too much about different things: 2 = More than half the days Trouble relaxin = Not at all Being so restless that it is hard to sit still: 2 = More than half the days Becoming easily annoyed or irritable: 3 = Nearly every day Feeling afraid as if something awful might happen: 0 = Not at all Total KEITH-7 score (0-4 normal; 5-9 mild; 10-14 moderate; 15-21 severe): 10 Source: Developed by Drs. Tyler Johnson, Orly Parker, Ankit Banda and colleagues, with an educational simone from [employer]. KEITH-7 Assessment Billing KEITH-7 Assessment Tool: KEITH-7 Assessment 38357 Review of Systems Const Denies chills, Denies fatigue, Denies fever(s), Denies headache(s) and Denies weakness ENT Denies dizziness and Denies headache(s) Card Denies chest pain, Denies lightheadedness, Denies dyspnea and Denies other (Palpitations) Resp Denies cough, Denies dyspnea, Denies wheezing and Denies other ( shortness of breath) Musc Denies numbness and Denies tingling Neuro Denies dizziness, Denies headache(s), Denies numbness, Denies tingling, Denies paresthesias and Denies weakness Psych Denies anxiety and Denies depression Endo Denies fatigue Aller/Immun Denies wheezing Physical exam (Primary Care) Vital Signs: Last Vital Signs Temp 97.2 F 10/29/24 08:55 Pulse 68 10/29/24 08:55 Resp 18 10/29/24 08:55 BP 138/82 10/29/24 08:55 Pulse Ox 97 10/29/24 08:55 Oxygen Delivery Method Room Air 10/29/24 08:55 BMI result Body Mass Index 28.4 Tobacco/Smoking Status: Tobacco use Status Tobacco use date assessed 10/29/24 10/29/24 09:00 Patient Tobacco Use Status Never used Tobacco 10/29/24 08:51 e-Cigarette/Vaping Use Never Used 10/29/24 08:51 PHQ-9: PHQ-9 Score PHQ-9: Total score 6 10/29/24 09:34 Depression Screening Interpretation: Positive Thrive Assessment: Date of Thrive Assessment Date Thrive assessed 10/29/24 10/29/24 09:00 Currently or been in a relationship where the following occur: No concerns reported Const General: no acute distress and well developed Nutritional Appearance: well nourished Orientation/consciousness: patient oriented x3 [facility] Head: Yes normocephalic and Yes atraumatic Eyes General: appearance normal, both eyes and all related structures Pupils: Equal, round and reactive pupils present EOM: EOMs intact bilaterally Resp Effort & Inspection: normal respiratory effort Auscultation: clear to auscultation bilaterally Cardio Rate: regular rate Rhythm: regular rhythm Heart sounds: S1 normal heart sound present, S2 normal heart sound present, no gallops, no murmurs and no rubs Neuro General: patient oriented x3 and gait normal Cranial nerves: Yes Equal, round and reactive pupils present Psych Affect: normal affect Coding Level of Care Code Est Pt Level 4 (53619) Diagnoses Essential hypertension I10 Elevated liver enzymes R74.8 Aortic aneurysm I71.9 Allergies T78.40XA Additional Codes KEITH-7 Assessment Billing - KEITH-7 Assessment Tool: KEITH-7 Assessment 14270 ([id number]) PHQ-9 - 81708 - PHQ-9 Billing: Yes ([id number]) Assessment & Plan Assessment & Plan (1) Essential hypertension: Comment: Blood pressure goal is less than 120/70 due to aortic aneurysm Code(s): I10 - Essential (primary) hypertension Category: Medical Plan: Blood pressure is too high. Goal is less than 130/80 Increase amlodipine to 10 mg daily Continue hydrochlorothiazide (2) Elevated liver enzymes: Code(s): R74.8 - Abnormal levels of other serum enzymes Category: Medical Plan: Liver enzymes back within normal range Continue good hydration Will continue to monitor (3) Aortic aneurysm: Comment: Blood pressure goal is less than 120/70 due to aortic aneurysm Code(s): I71.9 - Aortic aneurysm of unspecified site, without rupture Category: Medical Plan: Stable Control blood pressure as above (4) Allergies: Code(s): T78.40XA - Allergy, unspecified, initial encounter Category: Medical Plan: Trial nasal steroid and Zyrtec Plan Patient did not schedule an appointment with Urology. He says symptoms have resolved for now. PSA level was normal at last check in August Orders: Orders US carotid duplex BI Today R68.89 - Other general symptoms and signs Medications: New hydrochlorothiazide 25 mg PO DAILY 90 tabs 2RF 90 days cetirizine (Zyrtec) 10 mg PO DAILY PRN 30 tabs 2RF allergy symptoms 30 days fluticasone propionate 50 mcg/actuation (Flonase Allergy Relief) administer into each nostril 1 spray intranasal Q12H 16 grams 2RF 30 days Changed From amlodipine 5 mg PO DAILY 90 days 90 tabs 3RF To amlodipine 10 mg PO DAILY 90 tabs 3RF 90 days Discontinued hydrochlorothiazide Discontinued Reason: Doctor's Order 25 mg (2 x 12.5 mg) PO DAILY 90 days 180 caps 2RF
--- OUTSIDE RECORDS SUMMARY | 2024-10-29 08:39 | XMS_ITS | Patient Health Record ---
Author Organization [facility] Address [address] [place] [address] Care Team Providers Care In Home Caregiver Name Role Phone Dewayne Cardona Primary Care Provider UnavailTyler Cervantes Unavailable [phone] Allergies No Known Allergies Reason For Referral No Information Medications Medication [...] Problem Status W/U Status Risk Notes Problem [id number] Encounter for screening for malignant neoplasm of colon (Z12.11) Active confirmed Problem Dysphagia (77263939) Dysphagia (R13.10) Active confirmed Problem Stricture of esophagus (84108019) Esophageal obstruction (K22.2) Active confirmed Problem [id number] Preprocedural examination (Z01.818) Active confirmed Problem Esophageal stricture (27502312) Esophageal stricture (K22.2) Active confirmed Problem Generalized abdominal pain (549504800) Abdominal pain, acute, generalized (R10.84) Active confirmed Problem Change in bowel habit (01878258) Recent change in frequency of bowel movements (R19.4) Active confirmed Vital Signs Blood pressure diastolic 00 mm Hg 01/30/2024 Height 73 in 01/30/2024 Blood pressure systolic 00 mm Hg 01/30/2024 Weight 205 lbs 01/30/2024 BMI 27.04 kg/m2 01/30/2024 Encounters Encounter Location Date Provider Diagnosis [facility] [address] [place] [address] 01/30/2024 Tyler Walters Esophageal stricture K22.2 and Encounter for screening for malignant neoplasm of colon Z12.11 Assessments Encounter Date Diagnosis (ICD Code) Assessment Notes Treatment Notes Treatment Clinical Notes Section Notes 01/30/2024 Encounter for screening for malignant neoplasm [...] Date MEDICARE OF [place] [address] [place] [address] [id number] Armani Perry Self - patient is the insured MED[employer] ATTN CLAIMS [address] [place] [address] [phone] [id number] Armani Perry Self - patient is the insured Medical (General) History Medical History History ICD Code Hypertension Thoracic aortic aneursym 4.4cm--being fo llowed by [facility] cardiothoracic Hyperlipidemia Denies [place],DM,CVA,Lung disease,renal dise ase Neg. screening colonoscopy in [...]
[2024-10-29 08:55] VITALS: BP 138/82; PULSE 68; RESP 18; TEMP 36.2; O2SAT 97; BMI 28.4
[2024-10-29 09:40] VITALS: BP 140/78
== END 2024-10-29 09:47 | disposition home or self-care (01) ==
LOC: HO.HMCFM 08:27
PROVIDERS: PCP Family Medicine; Visit Provider Family Medicine
DX: I10 Essential (primary) hypertension (principal); R74.8 Abnormal levels of other serum enzymes; I71.9 Aortic aneurysm of unspecified site, without rupture; T78.40XA Allergy, unspecified, initial encounter

== ENCOUNTER → 2024-10-29 08:26 | Outpatient (BNVA) | payer MEDICARE, SELFPAY | PROVIDERS: PCP Family Medicine; Visit Provider Family Medicine | DX: I10 Essential (primary) hypertension (principal); R74.8 Abnormal levels of other serum enzymes; I71.9 Aortic aneurysm of unspecified site, without rupture; T78.40XA Allergy, unspecified, initial encounter | CPT/HCPCS: 96127; 99212 ==

== ENCOUNTER 2025-01-29 09:44 | Outpatient (REF) | payer MEDICARE, SELFPAY ==
--- OUTSIDE RECORDS SUMMARY | 2023-08-28 08:50 | XMS_ITS ---
Author Organization [facility] Address [address] [place] [address] Care Team Providers Care Brickmason Supervisor Name Role Phone Dewayne Cardona Primary Care Provider Unavailab Tyler Felix Unavailable [phone] REASON FOR VISIT dysphagia Problems Problem Type SNOMED Code ICD Code Onset Dates Problem Status W/U Status Risk Notes Problem Stricture of esophagus (57149803) Esophageal obstruction (K22.2) Active confirmed Encounters Encounter Location Date Provider Diagnosis [facility] Outpatient [address] [place] [id number] 08/28/2023 Tyler Walters Esophageal obstruc tion K22.2 ; Dysphagia R13.10 and Hiatal hernia K44.9 Assessments Encounter Date Diagnosis (ICD Code) Assessment Notes Treatment Notes Treatment Clinical Notes Section Notes 08/28/2023 Esophageal obstruction (ICD-10 - K22.2) 08/28/2023 Dysphagia (ICD-10 - R13.10) 08/28/2023 Hiatal hernia (ICD-10 - K44.9) Plan Of Treatment No Information Progress Notes * Armani PIMENTELDOB:1955 (69 yo M)Acc No.[id number]:08/28/2023 EGD/MAC Patient: Armani Bazzi Provider: Kiersten Walters MD :1955 A ge:68 Y S ex:Male Date:08/28/2023 Address: [place] [address] [id number] Pcp:Dewayne Cardona Subjective: * Chief Complaints: * D ysphagia Assessment: * Assessment: 1. E sophageal obstruction - K22.2 (Primary) 2 . D ysphagia - R13.10 ? 3 . H iatal hernia - K44.9 Plan: * Procedure Codes: 4 3249 ESOPH ENDOSCOPY, [id number] UPPER GI ENDOSCOPY, BIOPSY, Modifiers: 59 Billing Information: * Procedure Codes: 24742 ESOPH ENDOSCOPY, DILATION. 85270 UPPER GI ENDOSCOPY, BIOPSY. Modifiers: 59 * The named appointment provid er may or may not be the originator of this progress note, and it is not deemed complete until electronically signed by the appointment provider. Sign off status: Pending * Provider: Kiersten Walters MD Date: 0 08/28/2023 Generated for Candice unger/Miya/Loansmitting on: 03/31/2024 11:06 AM EST
--- NOTE | ~2025-01-29 | US_ITS ---
CLINICAL HISTORY: R68.89 - Other general symptoms and signs US bilateral carotid duplex Comparison: None provided Findings: No significant plaque within the common carotid arteries. Mild hypoechoic probably soft plaque within the carotid bulbs, no apparent stenosis. Waveforms are normal morphology. Peak systolic velocities: Right CCA: 92 cm/s Right ICA: 83.8 cm/s ICA/CCA ratio: 0.91 Right ECA: Unremarkable Right vertebral and subclavian artery flow antegrade. Left CCA: 119 cm/s Left ICA: 86.8 cm/s ICA/CCA ratio: 0.73 Left ECA: Unremarkable Left vertebral and subclavian artery flow antegrade. Impression: 1. Normal carotid velocities, no significant stenosis (0-49% stenosis) This document has been electronically signed by: Inocencia Riojas MD on 01/29/2025 16:21:36
--- OUTSIDE RECORDS SUMMARY | 2025-01-29 11:06 | XMS_ITS | Patient Health Record ---
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 Role Phone Dewayne Cardona Primary Care Provider UnavailTyler Cervantes Unavailable [phone] Allergies No Known Allergies Reason For Referral No Information Medications Medication SIG (Take, Route, Frequency, Duration) Notes Start Date End Date Status Lisinopril 20 MG Tablet TAKE 1 TABLET BY MOUTH DAILY FOR HYPERTENSION Oral; Duration: 90 Active Aspirin Adult Low Dose 81 MG Tablet Delayed Release 1 tablet Orally Once a day Active Omeprazole 40 MG Capsule Delayed Release 1 capsule every morning Orally Once a day in the morning; Duration: 30 day(s) 08/28/2023 Active Vitamin B-12 100 MCG Tablet as directed Orally Active Simvastatin 40 MG Tablet 1 tablet in the evening Orally Once a day Active hydroCHLOROthiazide 25 MG Tablet 1 tablet in the morning Orally Once a day Active Immunizations Vaccine Route Administration Date Status Comme nts Influenza Unknown 11/04/2017 Administered Influenza Unknown 08/22/2023 Refused Social History Tobacco Use: Social History Observation Description Date Details (start date - stop date) Never Smoker NA - NA Social History Drugs/Alcohol: Social Info Question Answer Notes Alcohol Screen Did you have a drink containing alcohol in the past year? Yes How often did you have a drink containing alcohol in the past year? Never (0 point) How many drinks did you have on a typical day when you were drinking in the past year? 1 or 2 drinks (0 point) How often did you have 6 or more drinks on one occasion in the past year? Never (0 point) Points 0 Interpretation Negative Tobacco Use: Social Info Question Answer Notes Tobacco Use/Smoking Patient is a nonsmoker Additional Details Category Social Info Options Details Miscellaneous: Marital status: single Occupation: [employer] Notes: Nonsmoker; when out on the b oat will have a six pack of beer. occasional Nonsmoker; when out on the b oat will have a six pack of beer occasionally Nonsmoker; when out on the b oat will have a six pack of beer occasionally Problems Problem Type SNOMED Code ICD Code Onset Dates Problem Status W/U Status Risk Notes Problem Screening for malignant neoplasm of colon (113770077) Encounter for screening for malignant neoplasm of colon (Z12.11) Active confirmed Problem Dysphagia (93330958) Dysphagia (R13.10) Active confirmed Problem Stricture of esophagus (71026935) Esophageal obstruction (K22.2) Active confirmed Problem Preprocedural examination (948096343343525) Preprocedural examination (Z01.818) Active confirmed Problem Esophageal stricture (31641398) Esophageal stricture (K22.2) Active confirmed Problem Generalized abdominal pain (125780548) Abdominal pain, acute, generalized (R10.84) Active confirmed Problem Change in bowel habit (20926074) Recent change in frequency of bowel movements (R19.4) Active confirmed Vital Signs Blood pressure diastolic 00 mm Hg 01/30/2024 Height 73 in 01/30/2024 Blood pressure systolic 00 mm Hg 01/30/2024 Weight 205 lbs 01/30/2024 BMI 27.04 kg/m2 01/30/2024 Encounters Encounter Location Date Provider Diagnosis [facility] [address] [facility] [address] [place] [id number] 01/30/2024 Tyler Walters Esophageal stricture K22.2 and [...] Date MEDICARE OF [place] [address] [place] [address] [id number] Armani Perry Self - patient is the insured MED[employer] ATTN CLAIMS [address] [place] [address] [id number] Armani Perry Self - patient is the insured Medical (General) History Medical History History ICD Code Hypertension Thoracic aortic aneursym 4.4cm--being fo llowed by [facility] cardiothoracic Hyperlipidemia Denies [place],DM,CVA,Lung disease,renal dise ase [...]
== END 2025-01-29 09:45 | disposition home or self-care (01) ==
LOC: HO.HMGCX 09:44
PROVIDERS: PCP Family Medicine; Visit Provider Family Medicine
DX: R09.89 Other specified symptoms and signs involving the circulatory and respiratory systems (principal); R68.89 Other general symptoms and signs
CPT/HCPCS: 93880

== ENCOUNTER → 2025-01-29 09:46 | Outpatient (BNV) | payer MEDICARE, SELFPAY | PROVIDERS: PCP Family Medicine; Visit Provider Radiology Diagnostic Radiology | DX: R09.89 Other specified symptoms and signs involving the circulatory and respiratory systems (principal) | CPT/HCPCS: 93880 ==

== ENCOUNTER 2025-02-05 09:18 | Outpatient (AMB) | payer MEDICARE, SELFPAY ==
--- NOTE | 2025-02-05 09:20 | A.OFFPC_ITS ---
Vital Signs 02/05/25 09:27 Height 6 ft Weight 213 lb 2 oz BMI 28.9 BP 142/77 H Blood Pressure Location Lt brachial Position Sitting Respiration 16 Pulse 71 Pulse Source Pulse Oximeter Temp 97.6 F Temp Source Oral Pulse Oximetry (%) 95 Oxygen Delivery Method Room Air Intake Visit Reasons: f/u HTN, chronic conditions Intake Note: patient here for follow up on HTN and chronic condition Manager Environmental Required: No Allergies prednisone Adverse Reaction (Mild, Verified 02/05/25 09:25) chest tightness, hard to breathe Lisinopril Allergy (Severe, Uncoded 02/05/25 09:25) Angioedema Medication List - Last Reconciled 02/05/25 by Dewayne Cardona MD amlodipine 10 mg PO DAILY 90 days aspirin (Adult Aspirin Regimen) 81 mg PO DAILY atorvastatin 20 mg PO BEDTIME 90 days blood pressure monitor Automatic, Digital. Dx: I10. Daily As directed, 999 days/lifetime hydrochlorothiazide 50 mg PO DAILY 90 days mecobalamin (vitamin B12) 1,000 mcg PO DAILY Tobacco use date assessed: 02/05/25 Fall risk assessment: No Falls in past year Last assessed Fall Risk: 02/05/25 Dental Screening Dental Screen Date: 02/05/25 Did you have a dental visit in the last 12 months?: No Did you have a dental problem in the last 6 months where you did not have access to dental care?: No Was dental information given to patient?: Patient has dentist HPI f/u HTN, chronic conditions HPI Details 69 y/o male presents to f/u HTN, chronic conditions. Blood pressure today 142/77, 71p. He is on hydrochlorothiazide 25mg, amlodipine 10mg daily. Reports bilateral hand numbness every night. Complaints of LE edema. HPI Comments History of Present Illness Details Documentation assistance for Dewayne Cardona MD, was provided by Dylan Mendoza,? Composite Science Teacher on 02/05/2025 at 10:10 AM JOSH. Marya, Dr. Cardona, have read, observed, and verified documentation. [facility] Medical History Right wrist pain Upper respiratory tract infection Cough HTN (hypertension) Aortic aneurysm Osteoarthritis of right knee Right knee pain Surgical History History of inguinal hernia repair History of appendectomy H/O arthroscopic knee surgery Family History Father CHF (congestive heart failure) Mother No problems noted. 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 Tyler Johnson, Orly Parker, Ankit Banda and colleagues, with an educational simone from [employer]. Review of Systems Const Denies chills, Denies fatigue, Denies fever(s), Denies headache(s) and Denies weakness ENT Denies dizziness and Denies headache(s) Card Denies dyspnea Resp Denies cough, Denies dyspnea, Denies wheezing and Denies other (shortness of breath) Musc Denies numbness and Denies tingling Neuro Denies dizziness, Denies headache(s), Denies numbness, Denies tingling and Denies weakness Psych Denies anxiety and Denies depression Endo Denies fatigue Aller/Immun Denies wheezing Physical exam (Primary Care) Vital Signs: Last Vital Signs Temp 97.6 F 02/05/25 09:27 Pulse 71 02/05/25 09:27 Resp 16 02/05/25 09:27 BP 142/77 H 02/05/25 09:27 Pulse Ox 95 02/05/25 09:27 Oxygen Delivery Method Room Air 02/05/25 09:27 BMI result Body Mass Index 28.9 Tobacco/Smoking Status: Tobacco use Status Tobacco use date assessed 02/05/25 02/05/25 09:30 Patient Tobacco Use Status Never used Tobacco 02/05/25 09:23 e-Cigarette/Vaping Use Never Used 02/05/25 09:23 Thrive Assessment: Date of Thrive Assessment Date Thrive assessed 10/29/24 02/05/25 09:23 Const General: well developed; No acute distress Nutritional Appearance: well nourished Orientation/consciousness: patient oriented x3 HENMT Head: Yes normocephalic and Yes atraumatic Eyes General: appearance normal, both eyes and all related structures Pupils: Equal, round and reactive pupils present EOM: EOMs intact bilaterally Resp Effort & Inspection: normal respiratory effort Neuro General: patient oriented x3 and gait normal Cranial nerves: Yes Equal, round and reactive pupils present Extrem Other: Trace LE edema Psych Affect: normal affect Coding Level of Care Code Est Pt Level 4 (69615) Diagnoses Essential hypertension I10 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: Comment: ct 08/10/23 VASCULAR: Calcific atherosclerotic changes are present in the aorta and iliofemoral vessel Code(s): I25.10 - Atherosclerotic heart disease of havasupai coronary artery without angina pectoris Category: Medical Plan: Stable Continue atorvastatin Control blood pressure (3) Arm numbness: Code(s): R20.0 - Anesthesia of skin Category: Medical Plan: As above (4) Lower extremity edema: Code(s): R60.0 - Localized edema Category: Medical (5) Tendinitis of both hands: Code(s): M77.8 - Other enthesopathies, not elsewhere classified Category: Medical Plan Trace lower extremity edema. This seems a little more pronounced after increasing his amlodipine. No SOB or orthopnea Avoid salt and sodium and elevate legs Bilateral hand tendonitis He notes that it improves with Advil. He can try a leave up to twice a day for few days at a time Also advised heat and he can use topical Aspercreme If not improving will discuss referral to hand specialist was to consider injection therapy He will return in a few months to follow-up hypertension. Will also review lab work Orders: Orders Erythrocyte Sedimentation Rate Today R20.0 - Anesthesia of skin Rheumatoid Factor Today R20.0 - Anesthesia of skin CRP High Sensitivity Today R20.0 - Anesthesia of skin Comprehensive [place]. Panel Fast Today Z00.00 - Encounter for general adult medical examination without abnormal findings Complete Blood Count Auto Diff Today Z00.00 - Encounter for general adult medical examination without abnormal findings Medications: Changed From hydrochlorothiazide 25 mg PO DAILY 90 days 90 tabs 2RF To hydrochlorothiazide 50 mg PO DAILY 90 tabs 2RF 90 days
[2025-02-05 09:27] VITALS: BP 142/77; PULSE 71; RESP 16; TEMP 36.4; O2SAT 95; BMI 28.9
== END 2025-02-05 10:28 | disposition home or self-care (01) ==
LOC: HO.HMCFM 09:19
PROVIDERS: PCP Family Medicine; Visit Provider Family Medicine
DX: I10 Essential (primary) hypertension (principal); I25.10 Atherosclerotic heart disease of native coronary artery without angina pectoris; R20.0 Anesthesia of skin; R60.0 Localized edema; M77.8 Other enthesopathies, not elsewhere classified

== ENCOUNTER → 2025-02-05 09:18 | Outpatient (BNVA) | payer MEDICARE, SELFPAY | PROVIDERS: PCP Family Medicine; Visit Provider Family Medicine | DX: I10 Essential (primary) hypertension (principal); I25.10 Atherosclerotic heart disease of native coronary artery without angina pectoris; R20.0 Anesthesia of skin; R60.0 Localized edema; M77.8 Other enthesopathies, not elsewhere classified | CPT/HCPCS: 99212 ==